=== PATIENT | female | born 1955 | race Caucasian/White ===

== ENCOUNTER 2022-01-24 10:26 | Outpatient (REF) | payer MEDICARE, MEDICAID, SELFPAY ==
--- NOTE | ~2022-01-24 | XR_ITS ---
EXAMINATION: XR CHEST CLINICAL INFORMATION: COPD COMPARISON: Previous chest x-ray most recent July 2011 TECHNIQUE: 2 views of the chest were obtained. FINDINGS: The cardiac and mediastinal contours are stable. The lungs are well inflated. The lungs are clear. There is no pleural effusion or pneumothorax. There are degenerative changes of the spine. XR/XR chest 2V IMPRESSION: Well-inflated lungs. No evidence for acute disease in the chest.
== END 2022-01-24 10:27 | disposition home or self-care (01) ==
LOC: HO.XRAY 10:26
PROVIDERS: PCP Student in an Organized Health Care Education/Training Program; Visit Provider Student in an Organized Health Care Education/Training Program
DX: J44.1 Chronic obstructive pulmonary disease with (acute) exacerbation (principal)
CPT/HCPCS: 71046

== ENCOUNTER 2023-11-04 15:02 | Outpatient (AMB) | payer MEDICARE, MEDICAID, SELFPAY ==
--- NOTE | 2023-11-04 15:17 | MHC.OFFVIS ---
Vital Signs 11/04/23 15:18 Height 5 ft 2.25 in Weight 155 lb 6.814 oz BMI 28.2 BP 136/78 Blood Pressure Location Lt brachial Position Sitting Pulse 77 Pulse Source Pulse Oximeter Pulse Oximetry (%) 94 Oxygen Delivery Method Room Air Intake Visit Reasons: COPD Allergies azithromycin [AZITHROMYCIN] Allergy (Unknown, Unverified 11/04/23 15:22) AGITATION HPI HPI COPD: Details: Julia is a pleasant 68 year old female, current 1/2 ppd smoker with 40+ pack-year history, underlying COPD. She was referred for pulmonary evaluation by PCP. She reports worsening control of COPD over the last few months using albuterol frequently for dyspnea on minimal exertion, wheezing, and dry cough and chest tightness. She was recently treated for an exacerbation by PCP with 5 day course of prednisone, which initially improved symptoms however once completed symptoms returned. She reports asthma diagnosed as an adult, never required intubations. She denies any occupational exposures. She denies any pertinent family history. She reports minimal activity secondary to bilateral knee pain. She reports feeling cortisone injections and interested in a referral to Pain Management, will enter this. [facility] Medical History (Updated 11/05/23 @ 12:43 by Noa Mendez NP) Hypercholesteremia Nicotine dependence, cigarettes, uncomplicated Vitamin D deficiency Social History (Updated 11/04/23 @ 15:22 by Ronel Marsh CMA) Patient Tobacco Use Status: Current everyday Tobacco user Tobacco use type: Cigarette Cigarettes Per Day: 10 Years Smoked: over 40 years Review of Systems Const Denies chills, Denies excessive sweating, Denies fever(s), Denies headache(s) and Denies night sweats Eyes Denies dry eyes, Denies irritation and Denies itchy eyes ENT Reports Normal hearing present, Denies headache(s), Denies nasal congestion, Denies nasal discharge, Denies post nasal drip and Denies sore throat Card Denies chest pain, Denies chest pain at rest, Denies chest pain with activity, Denies claudication, Denies leg edema and Denies paroxysmal nocturnal dyspnea Resp Denies chest congestion, Denies excessive phlegm production, Denies pain on inspiration, Denies pain with cough and Denies stridor Musc Denies myalgias Neuro Reports Normal hearing present and Denies headache(s) Endo Denies excessive sweating Jimbo/Lymph Denies lymphadenopathy Aller/Immun Denies itchy eyes and Denies seasonal rhinorrhea Physical Exam Vital Signs: Last Vital Signs Pulse 77 11/04/23 15:18 BP 136/78 11/04/23 15:18 Pulse Ox 94 11/04/23 15:18 Oxygen Delivery Method Room Air 11/04/23 15:18 BMI result Body Mass Index 28.2 Const General: cooperative, no acute distress, well developed and alert Orientation/consciousness: patient oriented x3 Limitations: no limitations HEENT Head: Yes normal to inspection, Yes normocephalic and Yes atraumatic Ears: hearing grossly normal bilaterally and external ears normal Eyes General: appearance normal, both eyes and all related structures Eyelids: Yes eyelids normal Sclerae: sclerae normal EOM: EOMs intact bilaterally Neck Neck: Yes normal visual inspection and Yes no lymphadenopathy Lymphatic: no lymphadenopathy noted Chest Chest palpation & inspection: normal inspection of the chest Resp Other: Moderate expiratory wheezing throughout, improved with DuoNeb Effort & Inspection: normal respiratory effort, able to speak in complete sentences, audible wheezes, Actively coughing, no stridor, not tachypneic, no tripod positioning and no use of accessory muscles Auscultation: wheezes and diminished lung sounds Cardio Jugular venous distension: no JVD Rate: regular rate Rhythm: regular rhythm Skin Other: warm, dry General skin exam: no rashes or lesions noted Neuro General: patient oriented x3 Cranial nerves: Yes Normal hearing present Cognition (Neuro): normal cognition Gait exam (Neuro): Normal gait present Extrem Other: Trace bilateral lower extremity edema Psych Appearance: grossly normal and well kempt Speech and movement: Normal speech and movement present and Clear speech present Affect: normal affect Attitude: cooperative Thought process: Normal thought process present Thought content: Normal thought content present Insight: Good insight present (Psych) Judgement: Good judgement present (Psych) Office Procedures Nebulizer Treatment Nebulizer Treatment [id number]-Wcyruzawv/MDI RX initial, or Nebulizer Subsequent Treatment Office Meds ipratropium 0.5 mg-albuterol 3 mg (2.5 mg base)/3 mL nebulization soln Performing Provider: Noa Mendez NP [place] [facility] [place] Administered by: Annika Proctor LPN on 11/04/23 15:58 Dose Route Admin Location Dispensed Lot Number Expiration Date NDC Speech And Hearing Director 3 mL inhalation 3 mL [id number] 09/16/25 15816-188-37 [facility] Assessment & Plan Assessment & Plan (1) COPD (chronic obstructive pulmonary disease): Code(s): J44.9 - Chronic obstructive pulmonary disease, unspecified Category: Medical (2) Nicotine dependence, cigarettes, uncomplicated: Comment: (current smoker 1/2ppd) Code(s): F17.210 - Nicotine dependence, cigarettes, uncomplicated Category: Medical (3) Dyspnea: Code(s): R06.00 - Dyspnea, unspecified Category: Medical Plan Julia's symptoms are likely related to poorly controlled COPD. Likely moderate to severe, no prior PFT. At this time patient with current exacerbation will treat with doxycycline and prednisone. Will consider PFT/munira in the future. On exam patient with audible wheezing, and moderate expiratory wheezing throughout, improved with DuoNeb. She was given a nebulizer for home use an office and a prescription for DuoNeb will be sent to pharmacy. Patient recently sent for lung cancer screening program and will have upcoming chest CT in the next few weeks. Will review once performed. Patient also reported significant orthopnea, dyspnea on minimal exertion and bilateral lower extremity edema, will send for echo to evaluate for cardiac contribution. Will have patient come in for close follow-up is aware to call the office if symptoms do not improve. If symptoms worsen patient will seek emergent care. All questions were answered and patient is in agreement of plan. Orders: Orders AMB Nebulizer Treatment 11/04/23 J44.9 - Chronic obstructive pulmonary disease, unspecified CA echo transthoracic complete Today R06.00 - Dyspnea, unspecified Medications: New xoffjzjlnwz-orhcwvwni-yfzcelud 200-62.5-25 mcg (Trelegy Ellipta) 1 inh inhalation DAILY 60 ea 3RF doxycycline hyclate 100 mg PO BID 14 caps 0RF prednisone see taper instructions; 40 mg Daily x3 days, 30 mg daily x3 days, 20 mg daily x3 days, 10 mg daily x3 days 10 mg PO DIRECTED 50 tabs 0RF ipratropium-albuterol 0.5 mg-3 mg(2.5 mg base)/3 mL 3 mL inhalation Q6H PRN 90 mL 0RF wheezing Coding Level of Care Code New Pt Level 4 (62770) Diagnoses COPD (chronic obstructive pulmonary disease) J44.9 Nicotine dependence, cigarettes, uncomplicated F17.210 Dyspnea R06.00 CPT Codes Nebulizer Treatment - Nebulizer Treatment, initial or subsequent: [id number]/MDI RX initial, or Nebulizer Subsequent Treatment ([id number])
[2023-11-04 15:18] VITALS: BP 136/78; PULSE 77; O2SAT 94; BMI 28.2
== END 2023-11-04 16:18 | disposition home or self-care (01) ==
PROVIDERS: PCP Student in an Organized Health Care Education/Training Program; Referring Provider Student in an Organized Health Care Education/Training Program; Visit Provider Nurse Practitioner Family
DX: J44.9 Chronic obstructive pulmonary disease, unspecified (principal)
CPT/HCPCS: 99204

== ENCOUNTER → 2023-11-04 15:02 | Outpatient (BNVA) | payer MEDICARE, MEDICAID, SELFPAY | PROVIDERS: PCP Student in an Organized Health Care Education/Training Program; Referring Provider Student in an Organized Health Care Education/Training Program; Visit Provider Nurse Practitioner Family | DX: J44.9 Chronic obstructive pulmonary disease, unspecified (principal); F17.210 Nicotine dependence, cigarettes, uncomplicated | CPT/HCPCS: 94640; 99202 ==

== ENCOUNTER 2023-11-15 15:13 | Outpatient (AMB) | payer MEDICARE, MEDICAID, SELFPAY ==
[2023-11-15 15:39] VITALS: BP 118/70; PULSE 78; O2SAT 94; BMI 28.7
--- NOTE | 2023-11-15 15:39 | MHC.OFFVIS ---
Vital Signs 11/15/23 15:39 Height 5 ft 2.25 in Weight 158 lb 2 oz BMI 28.7 BP 118/70 Blood Pressure Location Rt brachial Position Sitting Pulse 78 Pulse Source Pulse Oximeter Pulse Oximetry (%) 94 Oxygen Delivery Method Room Air Intake Visit Reasons: COPD Allergies azithromycin [AZITHROMYCIN] Allergy (Unknown, Unverified 11/15/23 15:42) AGITATION HPI HPI COPD: Details: Julia is a pleasant 68 year old female, current 1/2 ppd smoker with 40+ pack-year history, underlying COPD. She reports worsening control of COPD over the last few months using albuterol frequently for dyspnea on minimal exertion, wheezing, and dry cough and chest tightness. She was recently treated for an exacerbation by PCP with 5 day course of prednisone, which initially improved symptoms however once completed symptoms returned. At the last visit, she was treated for COPD exacerbation with prednisone and doxycyline. She reports symptoms having significantly improved. She states minimal cough, resolution of wheezing and decreased dyspnea with exertion. [facility] Medical History (Updated 11/05/23 @ 12:43 by Noa Mendez NP) Hypercholesteremia Nicotine dependence, cigarettes, uncomplicated Vitamin D deficiency Social History Patient Tobacco Use Status: Current everyday Tobacco user Tobacco use type: Cigarette Cigarettes Per Day: 10 Years Smoked: over 40 years Review of Systems Const Denies chills, Denies excessive sweating, Denies fever(s), Denies headache(s) and Denies night sweats Eyes Denies dry eyes, Denies irritation and Denies itchy eyes ENT Reports Normal hearing present, Denies headache(s), Denies nasal congestion, Denies nasal discharge, Denies post nasal drip and Denies sore throat Card Denies chest pain, Denies chest pain at rest, Denies chest pain with activity, Denies claudication, Denies leg edema, Denies orthopnea and Denies paroxysmal nocturnal dyspnea Resp Denies chest congestion, Denies excessive phlegm production, Denies pain on inspiration, Denies pain with cough, Denies stridor and Denies wheezing Musc Denies myalgias Neuro Reports Normal hearing present and Denies headache(s) Endo Denies excessive sweating Jimbo/Lymph Denies lymphadenopathy Aller/Immun Denies itchy eyes, Denies seasonal rhinorrhea and Denies wheezing Physical Exam Vital Signs: Last Vital Signs Pulse 78 11/15/23 15:39 BP 118/70 11/15/23 15:39 Pulse Ox 94 11/15/23 15:39 Oxygen Delivery Method Room Air 11/15/23 15:39 BMI result Body Mass Index 28.7 Const General: cooperative, healthy appearing, comfortable, no acute distress, well developed and alert Nutritional Appearance: obese Orientation/consciousness: patient oriented x3 Limitations: no limitations HEENT Head: Yes normal to inspection, Yes normocephalic and Yes atraumatic Ears: hearing grossly normal bilaterally and external ears normal Eyes General: appearance normal, both eyes and all related structures Eyelids: Yes eyelids normal Sclerae: sclerae normal EOM: EOMs intact bilaterally Neck Neck: Yes normal visual inspection and Yes no lymphadenopathy Lymphatic: no lymphadenopathy noted Chest Chest palpation & inspection: normal inspection of the chest Resp Effort & Inspection: normal respiratory effort, able to speak in complete sentences, no audible wheezes, no cough, no stridor, not tachypneic, no tripod positioning and no use of accessory muscles Auscultation: diminished lung sounds Cardio Jugular venous distension: no JVD Rate: regular rate Rhythm: regular rhythm Skin Other: warm, dry General skin exam: no rashes or lesions noted Neuro General: patient oriented x3 Cranial nerves: Yes Normal hearing present Cognition (Neuro): normal cognition Gait exam (Neuro): Normal gait present Extrem General: Yes normal to inspection, Yes capillary refill normal, Yes no clubbing, cyanosis or edema and Yes no pedal edema Psych Appearance: grossly normal and well kempt Speech and movement: Normal speech and movement present and Clear speech present Affect: normal affect Attitude: cooperative Thought process: Normal thought process present Thought content: Normal thought content present Insight: Good insight present (Psych) Judgement: Good judgement present (Psych) Assessment & Plan Assessment & Plan (1) COPD (chronic obstructive pulmonary disease): Code(s): J44.9 - Chronic obstructive pulmonary disease, unspecified Category: Medical (2) Nicotine dependence, cigarettes, uncomplicated: Comment: (current smoker 1/2ppd) Code(s): F17.210 - Nicotine dependence, cigarettes, uncomplicated Category: Medical (3) Dyspnea: Code(s): R06.00 - Dyspnea, unspecified Category: Medical Plan At the last visit, patient treated for COPD exacerbation, reporting significant improvement in symptoms and feels back to baseline. Advised to continue Trelegy and use Duoneb PRN. Awaiting patient to be scheduled for PFT and has a LDCT scheduled on 12/05, echo on 11/25. Will follow up to review results or sooner if needed. All questions were answered and patient is in agreement of plan. Coding Level of Care Code Est Pt Level 3 (43998) Diagnoses COPD (chronic obstructive pulmonary disease) J44.9 Nicotine dependence, cigarettes, uncomplicated F17.210 Dyspnea R06.00
== END 2023-11-15 16:20 | disposition home or self-care (01) ==
PROVIDERS: PCP Student in an Organized Health Care Education/Training Program; Visit Provider Nurse Practitioner Family
DX: J44.9 Chronic obstructive pulmonary disease, unspecified (principal); F17.210 Nicotine dependence, cigarettes, uncomplicated; R06.00 Dyspnea, unspecified
CPT/HCPCS: 99213

== ENCOUNTER → 2023-11-15 15:13 | Outpatient (BNVA) | payer MEDICARE, MEDICAID, SELFPAY | PROVIDERS: PCP Student in an Organized Health Care Education/Training Program; Visit Provider Nurse Practitioner Family | DX: J44.9 Chronic obstructive pulmonary disease, unspecified (principal); R06.00 Dyspnea, unspecified; F17.210 Nicotine dependence, cigarettes, uncomplicated | CPT/HCPCS: 99212 ==

== ENCOUNTER → 2023-11-26 13:44 | Outpatient (REF) | payer MEDICARE, MEDICAID, SELFPAY ==
--- NOTE | 2023-11-26 13:46 | CA_ITS ---
Transthoracic Echocardiogram Patient (Last, First, Middle): Julia Monzon L Gender: Female Date of : 1955 Age: 68 Procedure Date: 11/26/2023 Procedure Type: Transthoracic Echocardiogram Location: OP Height: 160.02 cm Weight: 70.31 kg BSA: 1.74 m2 Heart Rate: bpm BP: 120 / 75 mmHg Scroll Shear Operator: BECKY Referring MD: Noa Mendez NP Symptoms: R06.00 - Dyspnea, unspecified Study Quality: Adequate ECG Rhythm: Sinus Conclusions: - The left ventricular systolic function is normal. The calculated ejection fraction is 64% by biplane method. - There is mild calcification of the aortic valve. - There is mild mitral annular calcification. - There is mild dilatation of the ascending aorta measuring 3.90 cm. Findings Left Ventricle Normal left ventricular cavity size. There is normal left ventricular wall thickness. The left ventricular systolic function is normal. The calculated ejection fraction is 64% by biplane method. There is no evidence of regional wall motion abnormalities. Diastolic function is normal for age. Right Ventricle Normal right ventricular cavity size and systolic function. Atria Both atria are normal in size. Aortic Valve There is a normal trileaflet aortic valve. There is mild calcification of the aortic valve. There is no aortic valve stenosis. There is no aortic valve regurgitation. Mitral Valve The mitral valve appears normal. There is mild mitral annular calcification. There is no mitral valve regurgitation. There is no mitral valve stenosis. Pulmonic Valve The pulmonic valve is likely normal. Tricuspid Valve There is mild tricuspid valve regurgitation. There is no evidence of pulmonary hypertension. Great Vessels There is mild dilatation of the ascending aorta measuring 3.90 cm. Venous The inferior vena cava is normal in size and collapses greater than 50% with inspiration. Pericardium/Pleural There is no evidence of pericardial effusion. Prior Study Comparison No prior study available for comparison. Measurements 2D Linear Measurements IVSd: 0.93 0.6-0.9/0.6-1.0 cm LVIDd: 4.41 3.9-5.3/4.2-5.9 cm LVIDd Index: 2.53 2.4-3.2/2.2-3.1 cm/m2 LVIDs: 3.06 2.0-3.6 cm LVPWd: 0.88 0.7-1.1 cm LA Diam: 3.40 2.7-3.8/3.0-4.0 cm LAIDs Index: 1.95 1.5-2.3 cm/m2 LV Mass: 160.71 67-162/88-224 g LV Mass Index: 92.36 43-95/49-115 g/m2 LVOT Diam: 2.10 3.0+(-)1.3 cm 2D Systolic Function EF 4C: 63.80 >55% EF 2C: 61.70 >55% EF BiP: 63.90 >55% Mitral Valve MV Pk E: 0.78 MV PK A: 0.81 MV Decel Time: 249.00 E/A: 1.00 E'Lateral: 8.59 E'Medial: 5.66 E/E' Med: 13.80 E/E' Lat: 9.10 PHT: 73.00 MVA PHT: 3.01 Decel Panola: 3.13 Aortic Valve AoV Pk Fidel: 1.36 AoV Mn Fidel: 0.98 AoV VTI: 0.30 AoV Pk Grad: 7.00 Aov Mn Grad: 4.00 EVETTE Cont.VTI: 2.69 LVOT LVOT Pk Fidel: 1.10 LVOT Mn Fidel: 0.65 LVOT VTI: 0.23 LVOT Pk Grad: 5.00 LVOT Mn Grad: 2.00 LVOT Diam: 2.10 LVOT Area: 3.46 Diastolic Function MV Pk E: 0.78 MV Pk A: 0.81 E/A: 1.00 E'Medial: 5.66 E/E' Med: 13.80 E' Laterial: 8.59 E/E' Lat: 9.10 Right Ventricle TAPSE (mm): 28.20 TVS' Fidel: 13.90 Tricuspid Valve TR Pk Fidel: 2.71 TR Pk Grad: 29.00 RA Press: 3.00 RVSP: 32.00 Great Vessels Aorta Sinus of Valsalva: 3.95 2.0-3.[address] [place]: 2.41 1.7-3.4 cm Ao Asc: 3.90 2.1-3.4 cm Updated in Other Vendor System with Status of Final Rob Beard MD electronically signed on 11/26/2023 3:37:48 PM with status of Final
== END ==
LOC: HO.CARD 13:44
PROVIDERS: PCP Student in an Organized Health Care Education/Training Program; Visit Provider Nurse Practitioner Family
DX: R06.00 Dyspnea, unspecified (principal)
CPT/HCPCS: 93306

== ENCOUNTER → 2023-11-26 13:46 | Outpatient (BNV) | payer MEDICARE, MEDICAID, SELFPAY | PROVIDERS: PCP Student in an Organized Health Care Education/Training Program; Visit Provider Internal Medicine | DX: I36.1 Nonrheumatic tricuspid (valve) insufficiency (principal); I35.8 Other nonrheumatic aortic valve disorders; I34.81 Nonrheumatic mitral (valve) annulus calcification | CPT/HCPCS: 93306 ==

== ENCOUNTER 2023-12-13 08:40 | Outpatient (REF) | payer MEDICARE, MEDICAID, SELFPAY ==
[2023-12-13 14:29] LABS: Alanine Aminotransferase 9 U/L (0-31); Albumin Level 3.9 g/dL (3.5-5.0); Alkaline Phosphatase 68 U/L (39-117); Anion Gap 11 (12-20); Aspartate Amino Transferase 13 U/L (5-31); Bilirubin Direct 0.1 mg/dL (0.0-0.5); Bilirubin Total 0.3 mg/dL (0.0-1.0); Blood Urea Nitrogen 13 mg/dL (9-16); Calcium 9.4 mg/dL (8.4-10.2); Carbon Dioxide 29 mmol/L (22-29); Chloride 104 mmol/L (96-108); Cholesterol 244 mg/dL (<200); Estimated Glomerular Filt Rate > 60; Glucose Random 98 mg/dL (60-115); HDL Cholesterol 55 mg/dL (>40); LDL Cholesterol Calculated 166 mg/dL (<100); Sodium 140 mmol/L (135-145); Total Protein 6.5 g/dL (6.5-8.0); Triglycerides 117 mg/dL (<150)
== END 2023-12-13 08:41 | disposition home or self-care (01) ==
LOC: HO.CHCLDS 08:40
PROVIDERS: Visit Provider Student in an Organized Health Care Education/Training Program
DX: E78.00 Pure hypercholesterolemia, unspecified (principal)
CPT/HCPCS: 36415; 80048; 80061; 80076

== ENCOUNTER 2023-12-25 12:11 | Outpatient (REF) | payer MEDICARE, MEDICAID, SELFPAY ==
--- NOTE | ~2023-12-25 | MM_ITS ---
EXAMINATION: MM SCREENING DIGITAL BREAST TOMOSYNTHESIS, BILATERAL CLINICAL INFORMATION: Screening. Asymptomatic. COMPARISON: Mammography: 12/18/2017, 10/01/2016, dating back to 2014. TECHNIQUE: Digital breast tomosynthesis is performed in both the craniocaudal and mediolateral oblique views along with computer-aided detection (CAD). Synthesized 2D images are generated from the tomosynthesis. In addition, additional right MLO, right CC, and left cc views were also obtained. FINDINGS: There are scattered areas of fibroglandular density (ACR BI-RADS breast composition Category b). There is an oval masslike focal asymmetry in the 2-3 o'clock axis of the right breast, anterior depth. Recommend diagnostic views. Otherwise, there is no suspicious additional mass, area of architectural distortion, or suspicious calcifications in either breast. No skin or axillary abnormalities. Parenchymal pattern is otherwise stable. MM/MM tomosynthesis screening BI IMPRESSION: Oval masslike focal asymmetry right breast 2-3 o'clock axis, anterior depth. Recommend spot compression 3-D views in the right CC and MLO views, as well as a full-field right 3-D ML view. Ultrasound may be necessary if the finding persists. No suspicious finding in the left breast. ASSESSMENT: BI-RADS BI-RADS 0 - Incomplete: Needs additional Imaging. RECOMMENDATION: 1. Additional views of the right breast. 2. Targeted ultrasound if warranted after review of the additional views. 3. Radiology department staff will contact the patient for additional imaging. Additional Imaging required This examination should not preclude the clinical evaluation of a suspicious palpable abnormality.
== END 2023-12-25 12:12 | disposition home or self-care (01) ==
LOC: HO.MAMMO 12:11
PROVIDERS: PCP Student in an Organized Health Care Education/Training Program; Visit Provider Student in an Organized Health Care Education/Training Program
DX: Z12.31 Encounter for screening mammogram for malignant neoplasm of breast (principal)
CPT/HCPCS: 77063; 77067

== ENCOUNTER → 2023-12-25 12:30 | Outpatient (BNV) | payer MEDICARE, MEDICAID, SELFPAY | PROVIDERS: PCP Student in an Organized Health Care Education/Training Program; Visit Provider Radiology Diagnostic Radiology | DX: Z12.31 Encounter for screening mammogram for malignant neoplasm of breast (principal) | CPT/HCPCS: 77063; 77067 ==

== ENCOUNTER 2024-01-17 11:09 | Outpatient (AMB) | payer MEDICARE, MEDICAID, SELFPAY ==
--- NOTE | 2024-01-17 08:05 | A.OFFVIS_ITS ---
Intake Visit Reasons: Current Smoker Allergies azithromycin [AZITHROMYCIN] Allergy (Unknown, Unverified 11/15/23 15:42) AGITATION HPI HPI Current Smoker: Details: Initial visit for this 68yo smoker with a 25PYH. Patient has been smoking since age 18 for 50 years at 1/2ppd. . Denies marijuana use. (onset 18yo, 1/2ppd x 50yrs, 25pyh) Denies second hand smoke exposure. Denies exposure to chemicals or substances like asbestos. . Reports family history of lung cancer. sister age 64 Denies personal history of cancers. Denies chest CT in last year. . Denies recent travel outside the [place]. Denies recent respiratory illness or recent hospitalization for respiratory issues. Denies testing positive for COVID. Denies receiving COVID Vaccine. . Denies fever, chills, new/worsening cough, hemoptysis, hoarseness or dysphagia. Denies significant chest pain, significant dyspnea or unintentional weight loss. Patient Lung Cancer Screening Questionnaire reviewed with patient by provider. . Shared Decision Making Completed. Patient meets criteria. Discussed in detail with patient, the risk vs benefit of LDCT screening. Patient consents to proceed with scan. Discussed smoking cessation. [facility] Medical History (Updated 12/03/23 @ 12:16 by April Portillo PA-C) Hypercholesteremia COPD (chronic obstructive pulmonary disease) Nicotine dependence, cigarettes, uncomplicated Vitamin D deficiency Surgical History (Updated 01/17/24 @ 11:19 by April Portillo PA-C) History of hysterectomy History of appendectomy History of tonsillectomy Family History (Updated 01/17/24 @ 11:24 by April Portillo PA-C) Daughter Leiomyosarcoma Sister Lung cancer Social History (Updated 01/17/24 @ 11:15 by April Portillo PA-C) Patient Tobacco Use Status: Current everyday Tobacco user Tobacco use type: Cigarette Cigarettes Per Day: 10 Years Smoked: (onset 18yo, 1/2ppd x 50yrs, 25pyh) Assessment & Plan Assessment & Plan (1) Nicotine dependence, cigarettes, uncomplicated: Comment: (current smoker 1/2ppd) Code(s): F17.210 - Nicotine dependence, cigarettes, uncomplicated Category: Medical Plan: - SDM visit completed today in office. - Patient meets criteria for LDCT for lung cancer screening purposes and is asymptomatic. - Smoking cessation counseling offered. Patients can always call [phone]. - Will arrange for a LDCT scan of the chest for screening purposes at [facility]. - Risks, benefits, and alternatives were discussed in detail and the patient agrees to proceed. - Risks discussed include but are not limited to: radiation exposure, anxiety during testing and while awaiting results, false negatives, false positives and possibility of additional intervention such as further imaging or surgical procedures for benign disease. - Benefits are obviously detection of lung cancer at an early stage which can lead to improved outcomes. - Discussed the importance of screening program compliance with adherence to yearly LDCT scan as scheduled - or sooner interval scans for personalized scree brooke regimen. - Discussed follow up plan. Our office will send a letter discussing results and if needed set up phone call and office visit based on CT findings. - Patient educated on results categorization and the management decisions for suspicious findings potentially found on the screening LDCT scan. Any patient with a Lung RADS score of 3 or 4 will be reviewed by a multidisciplinary team at [facility] to form a plan of action in regards to scan findings. - If further work up is warranted for a suspicious lung finding this will be followed by the Lung Cancer Screening program in conjunction with the Thoracic Surgery Department at [facility]. - A copy of the office note and LDCT will be sent to the patient's PCP - as well as documentation on any associated further plans of care. - Incidental findings on LDCT are the PCP's responsibility. These findings are indicated with an S finding on the LDCT Assessment. A note discussing the findings will be sent to the PCP who is then responsible for further management. - All questions answered.? Coding Level of Care Code Lung Cancer Screening G0296 Diagnoses Nicotine dependence, cigarettes, uncomplicated F17.210
== END 2024-01-17 11:31 | disposition home or self-care (01) ==
PROVIDERS: PCP Student in an Organized Health Care Education/Training Program; Referring Provider Student in an Organized Health Care Education/Training Program; Visit Provider Physician Assistant Medical
DX: F17.210 Nicotine dependence, cigarettes, uncomplicated (principal)
CPT/HCPCS: G0296

== ENCOUNTER 2024-01-17 11:25 | Outpatient (REF) | payer MEDICARE, MEDICAID, SELFPAY ==
--- NOTE | ~2024-01-17 | CT_ITS ---
EXAMINATION: CT LOW-DOSE SCREENING CHEST WITHOUT CONTRAST CLINICAL INFORMATION: Nicotine dependence. Current smoker smoking 1 pack per day for 36 years. COMPARISON: None available. TECHNIQUE: Multidetector volumetric CT imaging of the chest is performed on a Siemens SOMATOM Definition scanner without contrast using low dose technique. Additional 2D coronal and sagittal reformatted images and axial 3D maximum intensity projection (MIP) images are generated on the CT workstation. This CT examination was performed using dose optimization techniques as appropriate, variously including the following: *Automated exposure control *Adjustment of mA and/or kV according to patient size (this includes techniques or standardized protocols for targeted exams where dose is matched to indication/reason for exam; i.e. extremities or head) *Use of iterative reconstruction technique TOTAL EXAM DLP: 36 mGy-cm. CTDIvol: 1.15 mGy. FINDINGS: PULMONARY NODULES: Some small pulmonary nodules are present the largest measuring 3 mm in size (see saved macdonald images). No suspicious lung masses are seen. LUNGS: Lungs bilaterally symmetrically expanded. Moderate emphysematous changes are present along with marked diffuse bronchial thickening. Atelectasis is present in the right middle lobe as well as lingula. No effusion or pneumothorax. Central airways patent. MEDIASTINUM: No mediastinal, hilar or axillary adenopathy or free fluid collection. CORONARY ARTERY CALCIFICATION: Mild THYROID GLAND: Unremarkable to the extent seen. CARDIOVASCULAR STRUCTURES: Aortic and heart size normal. Ascending aorta measures 3.8 cm. No pericardial effusion. CHEST WALL/AXILLA: Unremarkable. UPPER ABDOMEN: Splenic granuloma are present. Marked atherosclerotic change seen in the abdominal aorta. OSSEOUS STRUCTURES: No suspicious focal findings. CT/CT lung screening IMPRESSION: No suspicious lung masses are seen. ASSESSMENT: 1. Lung-RADS Category 2: Benign appearance or behavior of nodules. N/A 2. Lung-RADS Category S: Negative. There are no clinically significant or potentially clinically significant findings not related to the lungs requiring urgent additional evaluation. RECOMMENDATION: Continued routine annual low-dose CT lung screening in 1 year is recommended. An order for CT CHEST LOW DOSE CANCER SCREENING ([id number]) can be placed. Electronically signed by: Garry Peres MD 01/20/2024 10:36 PM EDT
== END 2024-01-17 11:26 | disposition home or self-care (01) ==
LOC: HO.CT 11:25
PROVIDERS: Visit Provider Physician Assistant Medical
DX: Z12.2 Encounter for screening for malignant neoplasm of respiratory organs (principal); F17.210 Nicotine dependence, cigarettes, uncomplicated
CPT/HCPCS: 71271; G0296

== ENCOUNTER 2024-01-27 13:49 | Outpatient (AMB) | payer MEDICARE, MEDICAID, SELFPAY ==
--- NOTE | 2024-01-26 21:31 | MHC.OFFVIS ---
Vital Signs 01/27/24 13:55 Height 5 ft 2.5 in Weight 159 lb 13.362 oz BMI 28.8 BP 140/76 H Blood Pressure Location Rt brachial Position Sitting Pulse 74 Pulse Source Pulse Oximeter Pulse Oximetry (%) 95 Oxygen Delivery Method Room Air Intake Visit Reasons: COPD Allergies azithromycin [AZITHROMYCIN] Allergy (Unknown, Unverified 01/27/24 13:58) AGITATION HPI HPI COPD: Details: Julia is a pleasant 68 year old female, current 1/4 ppd smoker with 40+ pack-year history, underlying COPD. She has been moderately controlled on Trelegy and DuoNeb. She has been using Duoneb BID with improvements in dyspnea on exertion, and intermittent wheezing and productive cough with whitish mucous. She denies any visits to urgent care or hospitalizations since last visit. Today she presents to review echo and Chest CT. [facility] Medical History (Updated 01/27/24 @ 20:08 by Noa Mendez NP) Hypercholesteremia COPD (chronic obstructive pulmonary disease) Nicotine dependence, cigarettes, uncomplicated Vitamin D deficiency Surgical History (Updated 01/17/24 @ 11:19 by April Portillo PA-C) History of hysterectomy History of appendectomy History of tonsillectomy Family History (Updated 01/17/24 @ 11:24 by April Portillo PA-C) Daughter Leiomyosarcoma Sister Lung cancer Social History Patient Tobacco Use Status: Current everyday Tobacco user Tobacco use type: Cigarette Cigarettes Per Day: 10 Years Smoked: (onset 18yo, 1/2ppd x 50yrs, 25pyh) Review of Systems Const Denies chills, Denies excessive sweating, Denies fever(s), Denies headache(s) and Denies night sweats Eyes Denies dry eyes, Denies irritation and Denies itchy eyes ENT Reports Normal hearing present, Denies headache(s), Denies nasal congestion, Denies nasal discharge, Denies post nasal drip and Denies sore throat Card Denies chest pain, Denies chest pain at rest, Denies chest pain with activity, Denies claudication, Denies leg edema, Denies orthopnea and Denies paroxysmal nocturnal dyspnea Resp Denies chest congestion, Denies excessive phlegm production, Denies pain on inspiration, Denies pain with cough, Denies stridor and Denies wheezing Musc Denies myalgias Neuro Reports Normal hearing present and Denies headache(s) Endo Denies excessive sweating Jimbo/Lymph Denies lymphadenopathy Aller/Immun Denies itchy eyes, Denies seasonal rhinorrhea and Denies wheezing Physical Exam Vital Signs: Last Vital Signs Pulse 74 01/27/24 13:55 BP 140/76 H 01/27/24 13:55 Pulse Ox 95 01/27/24 13:55 Oxygen Delivery Method Room Air 01/27/24 13:55 BMI result Body Mass Index 28.8 Const General: cooperative, healthy appearing, comfortable, no acute distress, well developed and alert Nutritional Appearance: obese Orientation/consciousness: patient oriented x3 Limitations: no limitations HEENT Head: Yes normal to inspection, Yes normocephalic and Yes atraumatic Ears: hearing grossly normal bilaterally and external ears normal Eyes General: appearance normal, both eyes and all related structures Eyelids: Yes eyelids normal Sclerae: sclerae normal EOM: EOMs intact bilaterally Neck Neck: Yes normal visual inspection and Yes no lymphadenopathy Lymphatic: no lymphadenopathy noted Chest Chest palpation & inspection: normal inspection of the chest Resp Effort & Inspection: normal respiratory effort, able to speak in complete sentences, no audible wheezes, no cough, no stridor, not tachypneic, no tripod positioning and no use of accessory muscles Auscultation: diminished lung sounds Cardio Jugular venous distension: no JVD Rate: regular rate Rhythm: regular rhythm Skin Other: warm, dry General skin exam: no rashes or lesions noted Neuro General: patient oriented x3 Cranial nerves: Yes Normal hearing present Cognition (Neuro): normal cognition Gait exam (Neuro): Normal gait present Extrem General: Yes normal to inspection, Yes capillary refill normal, Yes no clubbing, cyanosis or edema and Yes no pedal edema Psych Appearance: grossly normal and well kempt Speech and movement: Normal speech and movement present and Clear speech present Affect: normal affect Attitude: cooperative Thought process: Normal thought process present Thought content: Normal thought content present Insight: Good insight present (Psych) Judgement: Good judgement present (Psych) Results Reviewed Results Reviewed: [address] [address] [address] Scan Report Signed Patient: Julia Monzon MR#: [id number] : 1955 Acct:[id number] Age/Sex: 68 / F ADM Date: 01/17/24 Loc: HO.CT Attending Dr: April Portillo PA-C Ordering Physician: April Portillo PA-C Date of Service: 01/17/24 Procedure(s): CT lung screening Accession Number(s): [id number] cc: April Portillo PA-C~ EXAMINATION: CT LOW-DOSE SCREENING CHEST WITHOUT CONTRAST CLINICAL INFORMATION: Nicotine dependence. Current smoker smoking 1 pack per day for 36 years. COMPARISON: None available. TECHNIQUE: Multidetector volumetric CT imaging of the chest is performed on a Siemens SOMATOM Definition scanner without contrast using low dose technique. Additional 2D coronal and sagittal reformatted images and axial 3D maximum intensity projection (MIP) images are generated on the CT workstation. This CT examination was performed using dose optimization techniques as appropriate, variously including the following: *Automated exposure control *Adjustment of mA and/or kV according to patient size (this includes techniques or standardized protocols for targeted exams where dose is matched to indication/reason for exam; i.e. extremities or head) *Use of iterative reconstruction technique TOTAL EXAM DLP: 36 mGy-cm. CTDIvol: 1.15 mGy. FINDINGS: PULMONARY NODULES: Some small pulmonary nodules are present the largest measuring 3 mm in size (see saved macdonald images). No suspicious lung masses are seen. LUNGS: Lungs bilaterally symmetrically expanded. Moderate emphysematous changes are present along with marked diffuse bronchial thickening. Atelectasis is present in the right middle lobe as well as lingula. No effusion or pneumothorax. Central airways patent. MEDIASTINUM: No mediastinal, hilar or axillary adenopathy or free fluid collection. CORONARY ARTERY CALCIFICATION: Mild THYROID GLAND: Unremarkable to the extent seen. CARDIOVASCULAR STRUCTURES: Aortic and heart size normal. Ascending aorta measures 3.8 cm. No pericardial effusion. CHEST WALL/AXILLA: Unremarkable. UPPER ABDOMEN: Splenic granuloma are present. Marked atherosclerotic change seen in the abdominal aorta. OSSEOUS STRUCTURES: No suspicious focal findings. CT/CT lung screening IMPRESSION: No suspicious lung masses are seen. ASSESSMENT: 1. Lung-RADS Category 2: Benign appearance or behavior of nodules. N/A 2. Lung-RADS Category S: Negative. There are no clinically significant or potentially clinically significant findings not related to the lungs requiring urgent additional evaluation. RECOMMENDATION: Continued routine annual low-dose CT lung screening in 1 year is recommended. An order for CT CHEST LOW DOSE CANCER SCREENING ([id number]) can be placed. Electronically signed by: Garry Peres MD 01/20/2024 10:36 PM EDT RP Dictated By: Garry Peres MD Signed By: <Electronically signed by Garry Peres MD in OV> 01/20/246 DD/ 1132 TD/TT: 01/17/24 1140 Pointer Helper: [place] [id number] Cardiology Report Signed Patient: Julia Monzon MR#: [id number] : 1955 Acct:[id number] Age/Sex: 68 / F ADM Date: 11/26/23 Loc: [facility] Attending Dr: Noa Mendez NP Ordering Physician: Noa Mendez NP Date of Service: 11/26/23 Procedure(s): CA echo transthoracic complete Accession Number(s): cc: Noa Mendez NP~ Transthoracic Echocardiogram Patient (Last, First, Middle): Julia Monzon L Gender: Female Date of : 1955 Age: 68 Procedure Date: 11/26/2023 Procedure Type: Transthoracic Echocardiogram Location: OP Height: 160.02 cm Weight: 70.31 kg BSA: 1.74 m2 Heart Rate: bpm BP: 120 / 75 mmHg Hydramatic Mechanic: BECKY Referring MD: Noa Mendez NP Symptoms: R06.00 - Dyspnea, unspecified Study Quality: Adequate ECG Rhythm: Sinus Conclusions: - The left ventricular systolic function is normal. The calculated ejection fraction is 64% by biplane method. - There is mild calcification of the aortic valve. - There is mild mitral annular calcification. - There is mild dilatation of the ascending aorta measuring 3.90 cm. Findings Left Ventricle Normal left ventricular cavity size. There is normal left ventricular wall thickness. The left ventricular systolic function is normal. The calculated ejection fraction is 64% by biplane method. There is no evidence of regional wall motion abnormalities. Diastolic function is normal for age. Right Ventricle Normal right ventricular cavity size and systolic function. Atria Both atria are normal in size. Aortic Valve There is a normal trileaflet aortic valve. There is mild calcification of the aortic valve. There is no aortic valve stenosis. There is no aortic valve regurgitation. Mitral Valve The mitral valve appears normal. There is mild mitral annular calcification. There is no mitral valve regurgitation. There is no mitral valve stenosis. Pulmonic Valve The pulmonic valve is likely normal. Tricuspid Valve There is mild tricuspid valve regurgitation. There is no evidence of pulmonary hypertension. Great Vessels There is mild dilatation of the ascending aorta measuring 3.90 cm. Venous The inferior vena cava is normal in size and collapses greater than 50% with inspiration. Pericardium/Pleural There is no evidence of pericardial effusion. Prior Study Comparison No prior study available for comparison. Measurements 2D Linear Measurements IVSd: 0.93 0.6-0.9/0.6-1.0 cm LVIDd: 4.41 3.9-5.3/4.2-5.9 cm LVIDd Index: 2.53 2.4-3.2/2.2-3.1 cm/m2 LVIDs: 3.06 2.0-3.6 cm LVPWd: 0.88 0.7-1.1 cm LA Diam: 3.40 2.7-3.8/3.0-4.0 cm LAIDs Index: 1.95 1.5-2.3 cm/m2 LV Mass: 160.71 67-162/88-224 g LV Mass Index: 92.36 43-95/49-115 g/m2 LVOT Diam: 2.10 3.0+(-)1.3 cm 2D Systolic Function EF 4C: 63.80 >55% EF 2C: 61.70 >55% EF BiP: 63.90 >55% Mitral Valve MV Pk E: 0.78 MV PK A: 0.81 MV Decel Time: 249.00 E/A: 1.00 E'Lateral: 8.59 E'Medial: 5.66 E/E' Med: 13.80 E/E' Lat: 9.10 PHT: 73.00 MVA PHT: 3.01 Decel Rolette: 3.13 Aortic Valve AoV Pk Fidel: 1.36 AoV Mn Fidel: 0.98 AoV VTI: 0.30 AoV Pk Grad: 7.00 Aov Mn Grad: 4.00 EVETTE Cont.VTI: 2.69 LVOT LVOT Pk Fidel: 1.10 LVOT Mn Fidel: 0.65 LVOT VTI: 0.23 LVOT Pk Grad: 5.00 LVOT Mn Grad: 2.00 LVOT Diam: 2.10 LVOT Area: 3.46 Diastolic Function MV Pk E: 0.78 MV Pk A: 0.81 E/A: 1.00 E'Medial: 5.66 E/E' Med: 13.80 E' Laterial: 8.59 E/E' Lat: 9.10 Right Ventricle TAPSE (mm): 28.20 TVS' Fidel: 13.90 Tricuspid Valve TR Pk Fidel: 2.71 TR Pk Grad: 29.00 RA Press: 3.00 RVSP: 32.00 Great Vessels Aorta Sinus of Valsalva: 3.95 2.0-3.[address] Ridge: 2.41 1.7-3.4 cm Ao Asc: 3.90 2.1-3.4 cm Updated in Other Vendor System with Status of Final Rob Beard MD electronically signed on 11/26/2023 3:37:48 PM with status of Final Dictated By: Rob Beard MD Signed By: <Electronically signed by Rob Beard MD in OV> 11/26/23 1537 DD/ 1410 TD/TT: Pointer Helper: Assessment & Plan Assessment & Plan (1) COPD (chronic obstructive pulmonary disease): Code(s): J44.9 - Chronic obstructive pulmonary disease, unspecified Category: Medical (2) Nicotine dependence, cigarettes, uncomplicated: Comment: (current smoker 1/2ppd) Code(s): F17.210 - Nicotine dependence, cigarettes, uncomplicated Category: Medical (3) Dyspnea: Code(s): R06.00 - Dyspnea, unspecified Category: Medical (4) Atelectasis: Code(s): J98.11 - Atelectasis Category: Medical Plan Reviewed chest CT which was read as a RADS 2, largest pulmonary nodule 3mm with moderate emphysematous changes. She will have repeat CT in one year. Reviewed echo which revealed normal diastolic function, LVEF 64%, RVSP 32 not suggestive of pulmonary HTN. Appears symptoms are related to underlying COPD. Will send for PFT to assess severity, as patient has been moderately controlled on current regimen. Advised to continue Trelegy and use Duoneb PRN. Will add acapella valve to regimen and encouraged deep breathing/intentionally coughing as CT noted atelectasis of RML and lingula. Will send for repeat imaging to assess for resolution. Smoking cessation reviewed, would like to attempt quitting on her own. Will perform 6MWT at next visit. Will follow up to review results or sooner if needed. All questions were answered and patient is in agreement of plan. Orders: Orders XR chest 2V 6 Weeks J98.11 - Atelectasis PFT pulmonary function test Today J44.9 - Chronic obstructive pulmonary disease, unspecified Coding Level of Care Code Est Pt Level 4 (10713) Diagnoses COPD (chronic obstructive pulmonary disease) J44.9 Nicotine dependence, cigarettes, uncomplicated F17.210 Dyspnea R06.00 Atelectasis J98.11
[2024-01-27 13:55] VITALS: BP 140/76; PULSE 74; O2SAT 95; BMI 28.8
== END 2024-01-27 14:47 | disposition home or self-care (01) ==
PROVIDERS: PCP Student in an Organized Health Care Education/Training Program; Visit Provider Nurse Practitioner Family
DX: J44.9 Chronic obstructive pulmonary disease, unspecified (principal); F17.210 Nicotine dependence, cigarettes, uncomplicated; R06.00 Dyspnea, unspecified; J98.11 Atelectasis
CPT/HCPCS: 99214

== ENCOUNTER → 2024-01-27 13:49 | Outpatient (BNVA) | payer MEDICARE, MEDICAID, SELFPAY | PROVIDERS: PCP Student in an Organized Health Care Education/Training Program; Visit Provider Nurse Practitioner Family | DX: J44.9 Chronic obstructive pulmonary disease, unspecified (principal); J98.11 Atelectasis; R06.00 Dyspnea, unspecified; F17.210 Nicotine dependence, cigarettes, uncomplicated | CPT/HCPCS: 99212 ==

== ENCOUNTER 2024-02-06 12:55 | Outpatient (REF) | payer MEDICARE, MEDICAID, SELFPAY ==
--- NOTE | ~2024-02-06 | US_ITS ---
EXAMINATION: MM DIAGNOSTIC DIGITAL BREAST TOMOSYNTHESIS, RIGHT US BREAST LIMITED, RIGHT MAMMOGRAPHY: CLINICAL INFORMATION: Diagnostic views for oval masslike focal asymmetry in the 3-4 o'clock axis of the right breast, anterior depth, seen on screening exam. COMPARISON: Mammography: 12/25/2023, 12/18/2017, 09/21/2016, dating back to 2014. TECHNIQUE: Digital breast tomosynthesis is performed in the following views: Full field 3-D right mediolateral view, as well as 3-D spot compression right CC and MLO views of the anterior breast. FINDINGS: There are scattered areas of fibroglandular density (ACR BI-RADS breast composition Category b). Diagnostic views demonstrate the presence of a small circumscribed oval mass at 4-5 o'clock, anterior depth, measuring 6 mm. In addition, there is an oval circumscribed retroareolar 12:00 mass measuring approximately 1.1 cm. At the same location as a one view asymmetry without definite CC correlate in the anterior direct retroareolar region, most likely a summation artifact of tissue given the appearance on tomography. These well be evaluated with ultrasound. ULTRASOUND: CLINICAL INFORMATION: As above. COMPARISON: None contributory. TECHNIQUE: Targeted sonographic evaluation right breast was performed using a high frequency linear transducer. Attention was given to the 11:00 to the 5:00 axis right breast, anterior depth. Selected archived documentation. FINDINGS: RIGHT BREAST: -At the 12:00 axis, retroareolar, there is a oval circumscribed 5 x 5 x 7 mm probable dilated duct with internal specular debris, good through transmission, and no internal color Doppler flow. This has no suspicious features and is probably benign related to duct ectasia. -At the 1:00 axis, retroareolar, there is a similar but smaller finding measuring 4 x 4 by 6 mm, with similar imaging features and also likely a benign focus of duct ectasia with internal debris. -At 3:00 axis, anterior periareolar location, there is a small 3 x 2 mm focus of duct ectasia versus a simple cyst which is benign. The above findings are all probably benign, correlate with the mammographic findings, and follow-up targeted right breast ultrasound is recommended in 6 months to ensure stability. US/US breast RT limited mamm only IMPRESSION: -There are no findings suspicious for malignancy in the right breast. -There are probably benign findings at 12:00 and 1:00 retroareolar as described above, most likely related to dilated duct with internal debris. FOLLOW-UP TARGETED RIGHT BREAST ULTRASOUND ONLY is recommended in 6 months to ensure stability. OVERALL ASSESSMENT: Mammography: BI-RADS 3 - Probably benign finding(s) - 6 month follow-up suggested Ultrasound: BI-RADS 3 - Probably benign finding(s) - 6 month follow-up suggested RECOMMENDATION: 6 Month F/U Electronically signed by: Nicola Durán MD 02/06/2024 01:56 PM EDT
== END 2024-02-06 12:56 | disposition home or self-care (01) ==
LOC: HO.MAMMO 12:55
PROVIDERS: PCP Student in an Organized Health Care Education/Training Program; Visit Provider Student in an Organized Health Care Education/Training Program
DX: N64.89 Other specified disorders of breast (principal)
CPT/HCPCS: 76642; 77061; 77065

== ENCOUNTER → 2024-02-06 13:00 | Outpatient (BNV) | payer MEDICARE, MEDICAID, SELFPAY | PROVIDERS: PCP Student in an Organized Health Care Education/Training Program; Visit Provider Radiology Diagnostic Radiology | DX: N64.89 Other specified disorders of breast (principal) | CPT/HCPCS: 76642; 77065; G0279 ==

== ENCOUNTER 2024-04-21 15:25 | Outpatient (REF) | payer MEDICARE, MEDICAID, SELFPAY ==
[2024-04-21 10:07] VITALS: PULSE 79; O2SAT 97
--- NOTE | 2024-04-21 15:32 | PFT_ITS ---
Flows: FEV1: 44 % of predicted at 0.92 L FVC: 79 % of predicted at 2.12 L FEV1/FVC: 43 % Bronchodilator response: Absent Volumes: Patient unable to perform lung volumes maneuvers. Diffusion capacity: Moderately decreased, adjusts to being mildly decreased after correction for alveolar ventilation. Impression: Severe obstructive ventilatory defect with no bronchodilator response. Patient unable to perform lung volumes maneuvers. Decreased diffusion capacity suggests emphysema. MTDD
== END 2024-04-21 15:26 | disposition home or self-care (01) ==
LOC: HO.RESP 15:25
PROVIDERS: PCP Student in an Organized Health Care Education/Training Program; Visit Provider Nurse Practitioner Family
DX: J44.9 Chronic obstructive pulmonary disease, unspecified (principal)
CPT/HCPCS: 94010; 94640; 94727; 94729

== ENCOUNTER → 2024-04-21 15:32 | Outpatient (BNV) | payer MEDICARE, MEDICAID, SELFPAY | PROVIDERS: PCP Student in an Organized Health Care Education/Training Program; Visit Provider Internal Medicine Pulmonary Disease | DX: J44.9 Chronic obstructive pulmonary disease, unspecified (principal) | CPT/HCPCS: 94060; 94729 ==

== ENCOUNTER 2024-04-27 14:34 | Outpatient (AMB) | payer MEDICARE, MEDICAID, SELFPAY ==
[2024-04-27 14:40] VITALS: BP 160/84; PULSE 75; O2SAT 98; BMI 27.0
--- NOTE | 2024-04-27 14:40 | MHC.OFFVIS ---
Vital Signs 04/27/24 14:40 Height 5 ft 2.5 in Weight 149 lb 14.629 oz BMI 27.0 BP 160/84 H Blood Pressure Location Rt brachial Position Sitting Pulse 75 Pulse Source Pulse Oximeter Pulse Oximetry (%) 98 Oxygen Delivery Method Room Air Intake Visit Reasons: COPD/PFT Follow Up Allergies azithromycin [AZITHROMYCIN] Allergy (Unknown, Unverified 04/27/24 14:43) AGITATION HPI HPI COPD/PFT Follow Up: Details: Julia is a pleasant 68 year old female, current 1/2 ppd smoker with 40+ pack-year history, underlying COPD. At baseline, she has been moderately controlled on Trelegy and DuoNeb BID. Over the last few weeks she has had increased dyspnea, wheezing and productive cough with clear sputum. Denies fevers, chills, or chest congestion. She also notes that she has increased from 1/4 ppd to 1/2 ppd as she recently lost her daugher due to cancer mid March. She has been struggling emotionally with this and will be reaching out to PCP for resources. She denies any visits to urgent care or hospitalizations since last visit. [facility] Medical History (Updated 01/27/24 @ 20:08 by Noa Mendez NP) Hypercholesteremia COPD (chronic obstructive pulmonary disease) Nicotine dependence, cigarettes, uncomplicated Vitamin D deficiency Surgical History (Updated 01/17/24 @ 11:19 by April Portillo PA-C) History of hysterectomy History of appendectomy History of tonsillectomy Family History (Updated 01/17/24 @ 11:24 by April Portillo PA-C) Daughter Leiomyosarcoma Sister Lung cancer Social History Patient Tobacco Use Status: Current everyday Tobacco user Tobacco use type: Cigarette Cigarettes Per Day: 10 Years Smoked: (onset 18yo, 1/2ppd x 50yrs, 25pyh) Review of Systems Const Denies chills, Denies excessive sweating, Denies fever(s), Denies headache(s) and Denies night sweats Eyes Denies dry eyes, Denies irritation and Denies itchy eyes ENT Reports Normal hearing present, Denies headache(s), Denies nasal congestion, Denies nasal discharge, Denies post nasal drip and Denies sore throat Card Denies chest pain, Denies chest pain at rest, Denies chest pain with activity, Denies claudication, Denies leg edema, Reports dyspnea on exertion, Denies orthopnea and Denies paroxysmal nocturnal dyspnea Resp Denies chest congestion, Reports cough, Denies hemoptysis, Denies excessive phlegm production, Denies pain on inspiration, Denies pain with cough, Reports dyspnea on exertion, Denies stridor and Reports wheezing Musc Denies myalgias Neuro Reports Normal hearing present and Denies headache(s) Endo Denies excessive sweating Jimbo/Lymph Denies lymphadenopathy Aller/Immun Denies itchy eyes, Denies seasonal rhinorrhea and Reports wheezing Physical Exam Vital Signs: Last Vital Signs Pulse 75 04/27/24 14:40 BP 160/84 H 04/27/24 14:40 Pulse Ox 98 04/27/24 14:40 Oxygen Delivery Method Room Air 04/27/24 14:40 BMI result Body Mass Index 27.0 Const General: cooperative, healthy appearing, comfortable, no acute distress, well developed and alert Nutritional Appearance: obese Orientation/consciousness: patient oriented x3 Limitations: no limitations HEENT Head: Yes normal to inspection, Yes normocephalic and Yes atraumatic Ears: hearing grossly normal bilaterally and external ears normal Eyes General: appearance normal, both eyes and all related structures Eyelids: Yes eyelids normal Sclerae: sclerae normal EOM: EOMs intact bilaterally Neck Neck: Yes normal visual inspection and Yes no lymphadenopathy Lymphatic: no lymphadenopathy noted Chest Chest palpation & inspection: normal inspection of the chest Resp Effort & Inspection: normal respiratory effort, able to speak in complete sentences, audible wheezes, no cough, no stridor, not tachypneic, no tripod positioning and no use of accessory muscles Auscultation: wheezes and diminished lung sounds Cardio Jugular venous distension: no JVD Rate: regular rate Rhythm: regular rhythm Skin Other: warm, dry General skin exam: no rashes or lesions noted Neuro General: patient oriented x3 Cranial nerves: Yes Normal hearing present Cognition (Neuro): normal cognition Gait exam (Neuro): Normal gait present Extrem General: Yes normal to inspection, Yes capillary refill normal, Yes no clubbing, cyanosis or edema and Yes no pedal edema Psych Appearance: grossly normal and well kempt Speech and movement: Normal speech and movement present and Clear speech present Affect: normal affect Attitude: cooperative Thought process: Normal thought process present Thought content: Normal thought content present Insight: Good insight present (Psych) Judgement: Good judgement present (Psych) Office Meds methylprednisolone sod suc(PF) 125 mg/2 mL solution for injection Performing Provider: Noa Mendez NP Performing Location: [facility] Administered by: Annika Proctor LPN on 04/27/24 15:17 Dose Route Admin Location Dispensed Lot Number Expiration Date [facility] Veterinary Virologist 125 mg IM rt buttock 2 ea [id number] 05/19/26 6064-7567-16 [employer] Comments: Administered 125mg/2ml IM. Assessment & Plan Assessment & Plan (1) COPD (chronic obstructive pulmonary disease): Code(s): J44.9 - Chronic obstructive pulmonary disease, unspecified Category: Medical (2) Nicotine dependence, cigarettes, uncomplicated: Comment: (current smoker 1/2ppd) Code(s): F17.210 - Nicotine dependence, cigarettes, uncomplicated Category: Medical (3) Dyspnea: Code(s): R06.00 - Dyspnea, unspecified Category: Medical (4) Atelectasis: Code(s): J98.11 - Atelectasis Category: Medical Plan Patient with exacerbation will treat with prednisone and given IM solumedrol in office today. She is aware if symptoms do not improve to call office and if worsen to seek emergent care. Reviewed PFT which revealed severe obstructive ventilatory defect with no bronchodilator response. Patient unable to perform lung volumes maneuvers. Decreased diffusion capacity suggests emphysema. Smoking cessation reviewed, would like to attempt quitting on her own however finding it difficult with recent passing of daughter. She will reach out to PCP to discuss potential resources. Patient with CXR order to assess for resolution of atelectasis from CT chest however not performed, will have performed prior to next visit. All questions were answered and patient is in agreement of plan. Will follow up in 4-6 weeks or sooner if needed. Orders: Orders AMB Methylprednisolone Sod Succ Injection Today J44.9 - Chronic obstructive pulmonary disease, unspecified, J98.11 - Atelectasis Medications: New prednisone see taper instructions; 40 mg Daily x3 days, 30 mg daily x3 days, 20 mg daily x3 days, 10 mg daily x3 days 10 mg PO DIRECTED 30 tabs 0RF Refilled ipratropium-albuterol 0.5 mg-3 mg(2.5 mg base)/3 mL 3 mL inhalation Q6H PRN 90 mL 6RF wheezing J44.9 - Chronic obstructive pulmonary disease, unspecified, R06.00 - Dyspnea, unspecified Coding Level of Care Code Est Pt Level 4 (03335) Diagnoses COPD (chronic obstructive pulmonary disease) J44.9 Nicotine dependence, cigarettes, uncomplicated F17.210 Dyspnea R06.00 Atelectasis J98.11
== END 2024-04-27 15:17 | disposition home or self-care (01) ==
PROVIDERS: PCP Student in an Organized Health Care Education/Training Program; Visit Provider Nurse Practitioner Family
DX: J44.9 Chronic obstructive pulmonary disease, unspecified (principal); F17.210 Nicotine dependence, cigarettes, uncomplicated; R06.00 Dyspnea, unspecified; J98.11 Atelectasis
CPT/HCPCS: 99214

== ENCOUNTER → 2024-04-27 14:34 | Outpatient (BNVA) | payer MEDICARE, MEDICAID, SELFPAY | PROVIDERS: PCP Student in an Organized Health Care Education/Training Program; Visit Provider Nurse Practitioner Family | DX: J44.9 Chronic obstructive pulmonary disease, unspecified (principal); R06.00 Dyspnea, unspecified; J98.11 Atelectasis; F17.210 Nicotine dependence, cigarettes, uncomplicated | CPT/HCPCS: 96372; 99212; J2919 ==

== ENCOUNTER 2024-04-29 14:06 | Outpatient (REF) | payer MEDICARE, MEDICAID, SELFPAY ==
--- NOTE | ~2024-04-29 | XR_ITS ---
EXAMINATION: XR CHEST CLINICAL INFORMATION: J98.11 - Atelectasis COMPARISON: Lung cancer screening CT on 01/17/2024 TECHNIQUE: 2 views of the chest were obtained. FINDINGS: The cardiac silhouette is normal. There is mild bronchial wall thickening. There are no areas of consolidation. There are no pleural effusions or pneumothoraces. The bones and soft tissues are unremarkable for the patient's age. XR/XR chest 2V IMPRESSION: Mild bronchial wall thickening. Electronically signed by: Paz Jarvis MD 04/29/2024 08:18 PM KRISH
== END 2024-04-29 14:07 | disposition home or self-care (01) ==
LOC: HO.XRAY 14:06
PROVIDERS: PCP Student in an Organized Health Care Education/Training Program; Visit Provider Nurse Practitioner Family
DX: J98.11 Atelectasis (principal)
CPT/HCPCS: 71046

== ENCOUNTER 2024-08-31 10:41 | Outpatient (AMB) | payer MEDICARE, MEDICAID, SELFPAY ==
--- NOTE | 2024-08-31 10:25 | MHC.OFFVIS ---
Vital Signs 08/31/24 10:48 Height 5 ft 2.5 in Weight 142 lb 3.17 oz BMI 25.6 BP 140/70 H Blood Pressure Location Lt brachial Position Sitting Pulse 78 Pulse Source Pulse Oximeter Pulse Oximetry (%) 95 Oxygen Delivery Method Room Air Intake Visit Reasons: COPD Active Directory Engineer Required: No Hvac Operations Technician: Hvac Operations Technician offered & declined Accompanied by: cousin Allergies azithromycin [AZITHROMYCIN] Allergy (Unknown, Unverified 08/31/24 10:55) AGITATION Medication List - Last Reconciled 08/31/24 by Annika Proctor LPN albuterol sulfate 90 mcg/actuation (Ventolin HFA) 2 puffs inhalation Q6H PRN odoffpjttqe-vpdeneipt-mpemmijr 200-62.5-25 mcg (Trelegy Ellipta) 1 ea inhalation DAILY ipratropium-albuterol 0.5 mg-3 mg(2.5 mg base)/3 mL 3 mL inhalation Q6H PRN HPI HPI COPD: Details: Julia is a pleasant 69 year old female, current smoker with 40+ pack-year history, underlying severe COPD and severe emphysema. At baseline, she has been moderately suboptimally controlled on Trelegy and DuoNeb BID. However patient does note inconsistent use of Trelegy, RX last written for 3 months supply in February and reports having 1 dose left, stretching out the 3 month supply almost 6 months. She does note state it is due to financial issues. She reports using DuoNeb 1-2 times per day. She continues to report labored breathing, increased dyspnea, productive cough with clear sputum, wheezing and chest tightness. She also continues to smoke, is down to 1/4 ppd. She states various life stressors at this time and not ready to quit. She denies any visits to urgent care or hospitalizations related to respiratory distress since the last visit. LDCT 12/2023 RADS2 and scheduled for repeat LDCT 12/2024. [facility] Medical History (Updated 08/31/24 @ 12:13 by Noa Mendez NP) Hypercholesteremia COPD (chronic obstructive pulmonary disease) Nicotine dependence, cigarettes, uncomplicated Vitamin D deficiency Surgical History (Updated 01/17/24 @ 11:19 by April Portillo PA-C) History of hysterectomy History of appendectomy History of tonsillectomy Family History (Updated 01/17/24 @ 11:24 by April Portillo PA-C) Daughter Leiomyosarcoma Sister Lung cancer Social History (Updated 08/31/24 @ 10:56 by Annika Proctor LPN) Patient Tobacco Use Status: Current everyday Tobacco user Tobacco use type: Cigarette Cigarettes Per Day: 6 Years Smoked: (onset 18yo, 1/2ppd x 50yrs, 25pyh) Review of Systems Const Denies chills, Denies excessive sweating, Denies fever(s), Denies headache(s) and Denies night sweats Eyes Denies dry eyes, Denies irritation and Denies itchy eyes ENT Reports Normal hearing present, Denies headache(s), Denies nasal congestion, Denies nasal discharge, Denies post nasal drip and Denies sore throat Card Denies chest pain, Denies chest pain at rest, Denies chest pain with activity, Denies claudication, Denies leg edema, Reports dyspnea on exertion, Denies orthopnea and Denies paroxysmal nocturnal dyspnea Resp Denies chest congestion, Reports cough, Denies hemoptysis, Denies excessive phlegm production, Denies pain on inspiration, Denies pain with cough, Reports dyspnea on exertion, Denies stridor and Reports wheezing Musc Denies myalgias Neuro Reports Normal hearing present and Denies headache(s) Endo Denies excessive sweating Jimbo/Lymph Denies lymphadenopathy Aller/Immun Denies itchy eyes, Denies seasonal rhinorrhea and Reports wheezing Physical Exam Vital Signs: Last Vital Signs Pulse 78 08/31/24 10:48 BP 140/70 H 08/31/24 10:48 Pulse Ox 95 08/31/24 10:48 Oxygen Delivery Method Room Air 08/31/24 10:48 BMI result Body Mass Index 25.6 Const General: cooperative, healthy appearing, comfortable, no acute distress, well developed and alert Orientation/consciousness: patient oriented x3 Limitations: no limitations HEENT Head: Yes normal to inspection, Yes normocephalic and Yes atraumatic Ears: hearing grossly normal bilaterally and external ears normal Eyes General: appearance normal, both eyes and all related structures Eyelids: Yes eyelids normal Sclerae: sclerae normal EOM: EOMs intact bilaterally Neck Neck: Yes normal visual inspection and Yes no lymphadenopathy Lymphatic: no lymphadenopathy noted Chest Chest palpation & inspection: normal inspection of the chest Resp Effort & Inspection: normal respiratory effort, able to speak in complete sentences, audible wheezes, no cough, labored, no stridor, no tripod positioning and no use of accessory muscles Auscultation: no crackles, no rhonchi, no wheezes and diminished lung sounds Cardio Jugular venous distension: no JVD Rate: regular rate Rhythm: regular rhythm Skin Other: warm, dry General skin exam: no rashes or lesions noted Neuro General: patient oriented x3 Cranial nerves: Yes Normal hearing present Cognition (Neuro): normal cognition Gait exam (Neuro): Normal gait present Extrem General: Yes normal to inspection, Yes capillary refill normal, Yes no clubbing, cyanosis or edema and Yes no pedal edema Psych Appearance: grossly normal and well kempt Speech and movement: Normal speech and movement present and Clear speech present Affect: normal affect Attitude: cooperative Thought process: Normal thought process present Thought content: Normal thought content present Insight: Good insight present (Psych) Judgement: Good judgement present (Psych) Office Procedures 6 Minute Walk Time:: 11:26 SPO2 % at rest: 95 Pulse at rest: 87 SPO2 % during excercise: 94 Pulse during excercise: 118 SPO2 % after excercise: 95 Pulse after excercise: 107 Distance in yards walked: 100 Gisell Score: 8 Performance Observations:: Patient walked unassisted on level ground very slowly. Maintained O2 saturation of 94-95% and pulse 100-118. Patient tires very easily and becomes very short of breath. Supplemental oxygen was not required. 13422 - 6 Minute Walk Assessment & Plan Assessment & Plan (1) COPD (chronic obstructive pulmonary disease): Code(s): J44.9 - Chronic obstructive pulmonary disease, unspecified Category: Medical (2) Nicotine dependence, cigarettes, uncomplicated: Comment: (current smoker 1/2ppd) Code(s): F17.210 - Nicotine dependence, cigarettes, uncomplicated Category: Medical (3) Dyspnea: Code(s): R06.00 - Dyspnea, unspecified Category: Medical Plan Julia continues to report significant dyspnea as well as cough, wheezing and chest tightness. She did admit to not using Trelegy consistently, encouraged to use Trelegy daily and DuoNeb BID for the next four weeks. If no significant improvement will consider Ohtuvayre vs Theophylline. 6MWT performed today and patient does not require supplemental oxygen at this time, although GISELL score elevated. Will send for overnight oximetry to assess for nocturnal hypoxemia. Will consider cardiology referral to assess for underlying cardiac contribution, may benefit from stress test. Smoking cessation reviewed, patient not ready to quit at this time. All questions were answered and patient is in agreement of plan. Will follow up in 8-10 weeks or sooner if needed. Orders: Orders AMB 6 minute walk Today J44.9 - Chronic obstructive pulmonary disease, unspecified, R06.00 - Dyspnea, unspecified Overnight Pulse Oximetry Today G47.34 - Idiopathic sleep related nonobstructive alveolar hypoventilation Medications: Refilled wevfvbyhwre-tqsfpoqur-iuvajmit 200-62.5-25 mcg (Trelegy Ellipta) 1 ea inhalation DAILY 60 ea 3RF Coding Level of Care Code Est Pt Level 4 (52718) Diagnoses COPD (chronic obstructive pulmonary disease) J44.9 Nicotine dependence, cigarettes, uncomplicated F17.210 Dyspnea R06.00 CPT Codes Coding ([id number])
[2024-08-31 10:48] VITALS: BP 140/70; PULSE 78; O2SAT 95; BMI 25.6
[2024-08-31 11:49] VITALS: PULSE 87; O2SAT 95
--- OUTSIDE RECORDS SUMMARY | 2024-08-31 12:33 | XMS_ITS | Encounter Summary ---
Author Organization [employer] Address [address] [place] [address] Care Team Providers Care Energy Efficient Site Manager Name Role Phone Laura Mackenzie MD Primary Care Provider [phone] Reason for Visit * Reason Comments Med Refill Encounter Details Date Type Department Care Team ([facility] st Contact Info) Description 02/18/2023 Refill C [facility] [address] [place], [place] [phone] Laura Mackenzie MD [address] [place] [address] Uncomplicated asthma, unspecified asthma severity, unspecified whether persistent Social History Tobacco Use Types Packs/Day Years Used Date Smoking Tobacco: Never Assessed Comments Unknown Sex and Gender Information Value Date Recorded Sex Assigned at Female 03/19/2022 10:16 AM EDT Legal Sex Female 10:16 AM EDT Gender Identity Female 03/19/2022 10:16 AM EDT Sexual Orientation Straight 03/19/2022 10 :16 AM EDT documented as of this encounter Plan of Treatment Not on file documented as of this encounter Visit Diagnoses Diagnosis Uncomplicated asthma, unspecified asthma severity, unspecified whether persistent documented in this encounter Care Teams Energy Efficient Site Manager Relationship Specialty Start Date End Date Laura Mackenzie MD [address] [place] [id number] PCP - General Family Medicine 12/30/14 documented as of this encounter
--- OUTSIDE RECORDS SUMMARY | 2024-08-31 12:33 | XMS_ITS | Encounter Summary ---
Author Organization [employer] Address [address] [place] [address] Care Team Providers Care Barrel Inspector Tight Name Role Phone Laura Mackenzie MD Primary Care Provider [phone] Reason for Visit * Reason Onset Date Comments Pre-visit Planning 10/04/2023 Encounter Details Date Type Department Care Team ([facility] st Contact Info) Description 10/04/2023 Telephone [facility] [address] [place] [address] Laura Mackenzie MD [address] [place] [address] Pre-visit Planning Social History Tobacco Use Types Packs/Day Years Used Date Smoking Tobacco: Never Assessed Housing Stability Answer Date Recorded What is your housing situation today? I have mauricio parker 10/04/[address] you li ve. Do you have problems with any of the following? None of the above 10/04/2023 Food Insecurity Answer Date Recorded Within the past 12 months, y ou worried that your food would run out before you got money to buy more: Never True 10/04/2023 Within the past 12 months,th e food you bought just didn't last and you didn't have enough money to get more: Never True Transportation Answer Date Recorded In the past 12 months, has l ack of transportation kept you from medical appts, meetings, work or from getting things needed for daily living? No 10/04/2023 Utilities Answer Date Recorded In the past 12 months, has t he electric, gas, oil or water company threatened to shut off services in your home? No 10/04/2023 Comments Unknown Sex and Gender Information Value Date Recorded Sex Assigned at Female 03/19/2022 10:16 AM EDT Legal Sex Female 10:16 AM EDT Gender Identity Female 03/19/2022 10:16 AM EDT Sexual Orientation Straight 03/19/2022 10 :16 AM EDT documented as of this encounter Miscellaneous Notes * Telephone Encounter - Hans Evans - 10/04/2023 12:27 PM EDT Tc from from patient calling to complete the pre visit planning for upcoming appt documented in this encounter Plan of Treatment Not on file documented as of this encounter Visit Diagnoses Not on filedocumented in this encounter Care Teams Barrel Inspector Tight Relationship Specialty Start Date End Date Laura Mackenzie MD [address] [place] [id number] PCP - General Family Medicine 12/30/14 documented as of this encounter
--- OUTSIDE RECORDS SUMMARY | 2024-08-31 12:33 | XMS_ITS | Clinical Summary ---
Author Organization [employer] Address [address] [place] [address] [address] [place] [address] Care Team Providers Care Production Team Advisor Name Role Phone Laura Mackenzie MD Primary Care Provider [phone] Allergies No known active allergies Medications simvastatin (Zocor) 20 MG tablet Take 1 tablet (20 mg) by mouth at bedtime. 30 tablet 11 4 10/15/19 25 Active Fluticasone Furoate-Vilante rol (Breo Ellipta) 200-25 MCG/ACT aerosol powderIndicatio ns:Chronic obstructive pulmonary disease, unspecified COPD type (CMS/HCC) INHALE 1 PUFF EVERY MORNING. RINSE MOUTH AFTER USE 1 each 3 4 Active Trelegy Ellipta 200-62.5-25 MCG/ACT aerosol powder INHALE 1 PUFF DAILY AT THE SAME TIME EACH DAY. RINSE MOUTH AFTER USE 4 Active ipratropium-alb uterol (Duo-Neb) 0.5-2.5 mg/3 mL nebulizer solution USE ONE AMPULE USING A NEBULIZER EVERY 6 HOURS NEEDED FOR WHEEZING 4 Active albuterol (2.5 MG/3ML) 0.083% nebulizer solutionIndicat ions:Unspecifie d asthma with status asthmaticus Take 3 mL (2.5 mg) by nebulization every 4 (four) hours if needed for wheezing or shortness of breath. 90 mL 3 4 Active cholecalciferol (D3-5) 5,000 Units tablet Take 1 tablet (5,000 Units) by mouth Once per day. 90 tablet 3 4 12/13/19 25 Active albuterol (Ventolin HFA) 108 (90 Base) MCG/ACT inhalerIndicati ons:Uncomplicat ed asthma, unspecified asthma severity, unspecified whether persistent INHALE TWO PUFFS BY MOUTH EVERY 4 HOURS NEEDED FOR WHEEZING 18 g 3 5 Active Active Problems Problem Noted Date Diagnosed Date Chronic obstructive lung disease 12/30/2014 Hypercholesterolemia 12/30/2014 Encounters Date Type Department Care Team Description 07/31/2024 Population Health Risk Score [facility] () Department [address] [address] Provider, Population Health Generic 07/28/2024 Telephone [facility] [address] [place] [address] Laura Mackenzie MD TC- RECALL 06/23/2024 Refill [facility] [address] [place] [address] Laura Mackenzie MD Uncomplicated asthma, unspecified asthma severity, unspecified whether persistent from Last 3 Months Immunizations Name Administration Dates Next Due Influenza High-dose Quadriva lent Preservative Free 02/22/2022,04/12/2021 Influenza Injectable Quadriv alant Preservative Free IIV4 MDCK 04/30/2017 Influenza injectable quadriv alent preservative free 05/23/2018 Influenza, IIV3, injectable 02/23/2013, 0,03/23/2008 Influenza, seasonal, injecta ble, preservative free 05/01/2016,02/15/2015 Pneumococcal Conjugate PCV 20 03/01/2022 Tdap 04/21/2019,03/23/2008 Zoster, Recombinant 05/28/2022,03/12/2022 Social History Tobacco Use Types Packs/Day Years Used Date Smoking Tobacco: Every Day Cigarettes Smokeless Tobacco: Never Tobacco Cessation:Ready to Q uit: Not Asked; Counseling Given: Not Answered Alcohol Use Standard Drinks/Week Comments Defer 0 (1 standard drink = 0.6 oz pur e alcohol) Housing Stability Answer Date Recorded What is your housing situation today? I have mauricio praker 10/04/[address] you li [...] the past 12 months, has t he [employer], gas, oil or water [employer] threatened to shut off services in your home? No 10/04/2023 Comments No Sex and Gender Information Value Date Recorded Sex Assigned at Female 03/19/2022 10:16 AM EDT Legal Sex Female 10:16 AM EDT Gender Identity Female 03/19/2022 10:16 AM EDT Sexual Orientation Straight 03/19/2022 10 :16 AM EDT Last Filed Vital Signs Vital Sign Reading Time Taken Comments Blood Pressure 142/68 12/13/2023 9:03 AM EDT Pulse 80 12/13/2023 9:03 AM EDT Temperature 36.2 ??C (97.1 ??F) 12/13/2023 9:03 AM ED T Respiratory Rate 16 12/13/2023 9:03 AM EDT Oxygen Saturation 95% 10/15/2023 11:37 AM EDT Inhaled Oxygen Concentration - - Weight 70.1 kg (154 lb 9.6 oz) 12/13/2023 9:03 A M EDT Height 157.5 cm (5' 2 ) 12/13/2023 9:03 AM EDT Body Mass Index 28.28 12/13/2023 9:03 AM EDT Plan of Treatment Health Maintenance Due Date Last Done Comments CT Colonography 1955 Colonoscopy 1955 Colorectal Cancer Screening 1955 Depression Screening 1955 FIT DNA/Cologuard 1955 FIT 1955 FOBT 1955 Sigmoidoscopy 1955 Alcohol/Substance Use Screening 1967 Hepatitis C Screening 07/25/1973 RSV Patients and Patients Aged 60 years or older (1 - Risk 60-74 years 1-dose series) 2015 COVID-19 Vaccine ( - season) 2024 Influenza Vaccine (#1) 2024 , 04/12/2021, 05/23/2018, Additional history exists Diagnostic Breast Imaging 08/05/2024 02/06/2024 Mammogram 08/05/2024 02/06/2024, 08/0 11/2023, 12/19/2017 SDOH Screening 10/03/2024 10/04/2023 Tobacco Screening 12/12/2024 12/13/2023 Lipid Panel 12/12/2028 12/13/2023 DTaP/Tdap/Td Vaccines (3 - Td or Tdap) 04/21/2029 04/21/2019, 03/23/2008 Pneumococcal Vaccine: 50+ Years Completed 03/01/2022 Zoster Vaccines Completed 05/28/2022, 03/12/2022 HIB Vaccines Aged Out No longer eligi ble based on patient's age to complete this topic HPV Vaccines Aged Out No longer eligi ble based on patient's age to complete this topic Hepatitis A Vaccines Aged Out No long er eligible based on patient's age to complete this topic Hepatitis B Vaccines Aged Out No long er eligible based on patient's age to complete this topic IPV Vaccines Aged Out No longer eligi ble based on patient's age to complete this topic Meningococcal Vaccine Aged Out No sourav titus eligible based on patient's age to complete this topic RSV under 20 months Aged Out No longe r eligible based on patient's age to complete this topic Rotavirus Vaccines Aged Out No longer eligible based on patient's age to complete this topic Procedures Procedure Name Priority Date/Time Associated Diagnosis Comments BI US BREAST LIMITED RIGHT Routine 02/06/2024 1:30 PM EDT LIPID PANEL, STANDARD Routine 12/13/2023 12:00 AM EDT Hypercholesterolemi a from Last 3 Months or Most Recently Relevant to Health Maintenance Results * BI US Breast Limited Right (02/06/2024 1:30 PM EDT) Anatomical Region Laterality Modality Breast Right Ultrasound 02/06/2024 1:30 PM EDT Narrative 02/06/2024 1:59 PM EDT ? [facility] ? [address] ?[place] [address] ? Ultrasound Report ? Signed ? Patient: Closser,Fiorentina L ?MR#: [id number] ?? [id number] ? : 1955 ?Acct:[id number] ? Age/Sex: 68 / F ?ADM Date: 02/06/24 ? Loc: HO.MAMMO ? Attending Dr: Laura Mackenzie MD ? Ordering Physician: Laura Mackenzie MD ?? Date of Service: 02/06/24 ?? Procedure(s): US breast RT limited mamm only ?? Accession Number(s): [id number] ? cc: Laura Mackenzie MD ? EXAMINATION: ?? MM DIAGNOSTIC DIGITAL BREAST TOMOSYNTHESIS, RIGHT ?? US BREAST LIMITED, RIGHT ? MAMMOGRAPHY: ?? CLINICAL INFORMATION: ? Diagnostic views for oval masslike focal asymmetry in the 3-4 o'clock ?? axis of the right breast, anterior depth, seen on screening exam. ? COMPARISON: ?? Mammography: 12/25/2023, 12/18/2017, 09/21/2016, dating back to 2014. ? TECHNIQUE: ?? Digital breast tomosynthesis is performed in the following views: Full ?? field 3-D right mediolateral view, as well as 3-D spot compression ?? right CC and MLO views of the anterior breast. ? FINDINGS: ?? There are scattered areas of fibroglandular density (ACR BI-RADS breast ?? composition Category b). ? Diagnostic views demonstrate the presence of a small circumscribed oval ?? mass at 4-5 o'clock, anterior depth, measuring 6 mm. ?? In addition, there is an oval circumscribed retroareolar 12:00 mass ?? measuring approximately 1.1 cm. At the same location as a one view ?? asymmetry without definite CC correlate in the anterior direct ?? retroareolar region, most likely a summation artifact of tissue given ?? the appearance on tomography. ?? These well be evaluated with ultrasound. ? ULTRASOUND: ?? CLINICAL INFORMATION: ?? As above. ? COMPARISON: ?? None contributory. ? TECHNIQUE: ?? Targeted sonographic evaluation right breast was performed using a high ?? frequency linear transducer. ??Attention was given to the 11:00 to the ?? 5:00 axis right breast, anterior depth. Selected archived ?? documentation. ? FINDINGS: ? RIGHT BREAST: ?? -At the 12:00 axis, retroareolar, there is a oval circumscribed 5 x 5 x ?? 7 mm probable dilated duct with internal specular debris, good through ?? transmission, and no internal color Doppler flow. This has no ?? suspicious features and is probably benign related to duct ectasia. ?? -At the 1:00 axis, retroareolar, there is a similar but smaller finding ?? measuring 4 x 4 by 6 mm, with similar imaging features and also likely ?? a benign focus of duct ectasia with internal debris. ?? -At 3:00 axis, anterior periareolar location, there is a small 3 x 2 mm ?? focus of duct ectasia versus a simple cyst which is benign. ? The above findings are all probably benign, correlate with the ?? mammographic findings, and follow-up targeted right breast ultrasound ?? is recommended in 6 months to ensure stability. ? US/US breast RT limited mamm only ?? IMPRESSION: ?? -There are no findings suspicious for malignancy in the right breast. ? -There are probably benign findings at 12:00 and 1:00 retroareolar as ?? described above, most likely related to dilated duct with internal ?? debris. FOLLOW-UP TARGETED RIGHT BREAST ULTRASOUND ONLY is recommended ?? in 6 months to ensure stability. ? OVERALL ASSESSMENT: ?? Mammography: BI-RADS 3 - Probably benign finding(s) - 6 month follow-up ?? suggested ?? Ultrasound: BI-RADS 3 - Probably benign finding(s) - 6 month follow-up ?? suggested ? RECOMMENDATION: ?? 6 Month F/U ? Electronically signed by: ??Nicola Durán MD ??02/06/2024 01:56 PM EDT RP ? Dictated By: ?Nicola Durán MD ? Signed By: ?<Electronically signed by Nicola Durán MD in OV> ?02/06/24 1356 ? DD/ 1330 ? TD/TT: 02/06/24 1348 ? [employer]: ? Procedure Note Donotuseinterpreter, Image - 02/06/2024 [facility] [address] [place], [place] [address] Ultrasound Report Signed Patient: Julia Monzon LMR#: [id number] : 6Acct:[id number] Age/Sex: 68 / FADM Date: 02/06/24 Loc: HO.MAMMO Attending Dr: Laura Mackenzie MD Ordering Physician: Laura Mackenzie MD Date of Service: 02/06/24 Procedure(s): US breast RT limited mamm only Accession Number(s): [id number] cc: Laura Mackenzie MD EXAMINATION: MM DIAGNOSTIC DIGITAL BREAST TOMOSYNTHESIS, RIGHT US BREAST LIMITED, RIGHT MAMMOGRAPHY: CLINICAL INFORMATION: Diagnostic views for oval masslike focal asymmetry in the 3-4 o'clock axis of the right breast, anterior depth, seen on screening exam. COMPARISON: Mammography: 12/25/2023, 12/18/2017, 09/21/2016, dating back to 2014. TECHNIQUE: Digital breast tomosynthesis is performed in the following views: Full field 3-D right mediolateral view, as well as 3-D spot compression right CC and MLO views of the anterior breast. FINDINGS: There are scattered areas of fibroglandular density (ACR BI-RADS breast composition Category b). Diagnostic views demonstrate the presence of a small circumscribed oval mass at 4-5 o'clock, anterior depth, measuring 6 mm. In addition, there is an oval circumscribed retroareolar 12:00 mass measuring approximately 1.1 cm. At the same location as a one view asymmetry without definite CC correlate in the anterior direct retroareolar region, most likely a summation artifact of tissue given the appearance on tomography. These well be evaluated with ultrasound. ULTRASOUND: CLINICAL INFORMATION: As above. COMPARISON: None contributory. TECHNIQUE: Targeted sonographic evaluation right breast was performed using a high frequency linear transducer. Attention was given to the 11:00 to the 5:00 axis right breast, anterior depth. Selected archived documentation. FINDINGS: RIGHT BREAST: -At the 12:00 axis, retroareolar, there is a oval circumscribed 5 x 5 x 7 mm probable dilated duct with internal specular debris, good through transmission, and no internal color Doppler flow. This has no suspicious features and is probably benign related to duct ectasia. -At the 1:00 axis, retroareolar, there is a similar but smaller finding measuring 4 x 4 by 6 mm, with similar imaging features and also likely a benign focus of duct ectasia with internal debris. -At 3:00 axis, anterior periareolar location, there is a small 3 x 2 mm focus of duct ectasia versus a simple cyst which is benign. The above findings are all probably benign, correlate with the mammographic findings, and follow-up targeted right breast ultrasound is recommended in 6 months to ensure stability. US/US breast RT limited mamm only IMPRESSION: -There are no findings suspicious for malignancy in the right breast. -There are probably benign findings at 12:00 and 1:00 retroareolar as described above, most likely related to dilated duct with internal debris. FOLLOW-UP TARGETED RIGHT BREAST ULTRASOUND ONLY is recommended in 6 months to ensure stability. OVERALL ASSESSMENT: Mammography: BI-RADS 3 - Probably benign finding(s) - 6 month follow-up suggested Ultrasound: BI-RADS 3 - Probably benign finding(s) - 6 month follow-up suggested RECOMMENDATION: 6 Month F/U Electronically signed by: Nicola Durán MD 02/06/2024 01:56 PM EDT Dictated By: Nicola Durán MD Signed By: <Electronically signed by Nicola Durán MD in OV> 02/06/24 1356 DD/ 1330 TD/TT: 02/06/24 1348 [employer]: us Laura Mackenzie MD IMG US PROCEDURES Final Result * (ABNORMAL) Lipid Panel, Standard (12/13/2023 12:00 AM EDT) Triglycerides 117 <150 mg/dL [facility] Comment:Desirable Triglyceri de: less than 150 mg/dLBorderline High Triglyceride 150-199 mg/dLHigh Triglyceride: 200-499 mg/dLVery High Triglyceride: greater than or equal to 5OO mg/dL Cholesterol 244(H) <200 mg/dL [facility] Comment:Desirable Cholestero l: less than 200 mg/dLBorderline High Cholesterol: 200-239 mg/dLHigh Cholesterol: greater than 239 mg/dL LDL Cholesterol Calculated 166(H) <100 mg/dL [facility] Comment:Desirable LDL: less than 100 mg/dLNear Optimal/Above Optimal LDL: 110- 129 mg/dLBorderline High LDL: 130-159 mg/dLHigh LDL: 160-189 mg/dLVery High LDL: greater than or equal to 190 mg/dL HDL Cholesterol 55 >40 mg/dL [facility] Comment:Desirable HDL: great er than 40 mg/dL Note: This HDL assay may give artificially low results in patients with liver disease. Blood Venous blood specimen / Unknown 12/13/2023 12/13/2023 us Laura Mackenzie MD LAB BLOOD ORDERABLES Final Resul t [facility] [address] [place] [address] [phone] from Last 3 Months or Most Recently Relevant to Health Maintenance Insurance [place] [address] [place] [address] [place] [id number] [facility] STANDARD Care Teams Production Team Advisor Relationship Specialty Start Date End Date Laura Mackenzie MD [address] [place] [id number] PCP - General Family Medicine 12/30/14
--- OUTSIDE RECORDS SUMMARY | 2024-08-31 12:33 | XMS_ITS | Encounter Summary ---
Author Organization [employer] Address [address] [facility] [address] [place] [address] Care Team Providers Care Director Of Student Services Name Role Phone Laura Mackenzie MD Primary Care Provider [phone] Reason for Visit * Reason Comments Med Refill Encounter Details Date Type Department Care Team ([facility] st Contact Info) Description 01/01/2023 Refill [facility] [address] [place], [place] [phone] Laura Mackenzie MD [address] [place], [place] [phone] Uncomplicated asthma, unspecified asthma severity, unspecified whether [...] persistent documented in this encounter Care Teams Director Of Student Services Relationship Specialty Start Date End Date Laura Mackenzie MD [address] [place] [id number] PCP - General Family Medicine 12/30/14 documented as of this encounter
== END 2024-08-31 11:42 | disposition home or self-care (01) ==
LOC: HO.HPS 10:46
PROVIDERS: PCP Student in an Organized Health Care Education/Training Program; Visit Provider Nurse Practitioner Family
DX: J44.9 Chronic obstructive pulmonary disease, unspecified (principal); F17.210 Nicotine dependence, cigarettes, uncomplicated; R06.00 Dyspnea, unspecified
CPT/HCPCS: 94618; 99214

== ENCOUNTER → 2024-08-31 10:41 | Outpatient (BNVA) | payer MEDICARE, MEDICAID, SELFPAY | PROVIDERS: PCP Student in an Organized Health Care Education/Training Program; Visit Provider Nurse Practitioner Family | DX: J44.9 Chronic obstructive pulmonary disease, unspecified (principal); R06.00 Dyspnea, unspecified; F17.210 Nicotine dependence, cigarettes, uncomplicated | CPT/HCPCS: 94618; 99212 ==

== ENCOUNTER 2024-10-30 18:26 | Inpatient (IN) | payer MEDICARE, OTHER, SELFPAY ==
--- NOTE | ~2024-10-30 | XR_ITS ---
CLINICAL HISTORY: shortness of breath 2 view chest x-ray Comparison: None Findings: No consolidation, pneumothorax, or pleural effusion. Borderline elevation left hemidiaphragm. Mild emphysematous changes. Borderline cardiomegaly likely prominence of the right atrium. Degenerative changes include the imaged shoulders, AC joints, and spine. IMPRESSION: No consolidation. This document has been electronically signed by: Surendra Galarza MD on 10/30/2024 19:16:29
--- NOTE | ~2024-10-30 | CT_ITS ---
CLINICAL HISTORY: wt loss, rectal bleeding CT abdomen and pelvis with contrast Comparison: None available Findings: Mild bibasilar atelectasis/pneumonitis. Emphysematous changes also partially imaged in the lung bases. Heart size within limits of normal is partially imaged. Mild fat deposition in the liver. Cholelithiasis suggested by CT with artifacts. Mild adrenal hyperplasia. Spleen is nonenlarged with calcified remnants of old granulomatous process. Mild-moderate volume loss of the imaged pancreas. No hydronephrosis. No suspicious features of the imaged small cystic lesions in the kidneys. Calcified and noncalcified plaque involving the imaged aorta and its branches in this nonvascular study. Nonenlarged lymphadenopathy by CT. No small bowel obstruction. Fluid and multiple small-bowel loops can be seen with enteritis. Wall thickening of the large intestine is nonspecific and likely reflect colitis, including the cecum. The appendix is not definitively seen. Uterus is diminutive or absent. No adnexal soft tissue mass by CT. Mild wall thickening of the urinary bladder is nonspecific and may reflect cystitis. Mild pelvis deformities appear old/chronic. Grade 1 anterolisthesis at L4-L5. Mild retrolisthesis of the T11-T12. Facet arthropathy is multi level. IMPRESSION: 1. Wall thickening of the large intestine is nonspecific, including the cecum. Differential considerations include colitis. 2. No small bowel obstruction. 3. Mild wall thickening of the urinary bladder. 4. Cholelithiasis. This document has been electronically signed by: Surendra Galarza MD on 10/30/2024 22:25:32
--- NOTE | ~2024-10-30 | XR_ITS ---
EXAMINATION: XR CHEST CLINICAL INFORMATION: sob COMPARISON: 10/30/2024 CT chest. TECHNIQUE: Frontal view of the chest was obtained. FINDINGS: The cardiac, hilar, and mediastinal contours are normal. There is underlying COPD again noted. There is diffuse haziness of the interstitium with Boris B lines in the lung bases, suggesting interstitial pulmonary edema. There is blunting of the costophrenic sulci suggesting tiny effusions. There is likely bibasilar atelectasis. There is no pneumothorax. XR/XR chest 1V IMPRESSION: COPD. Mild interstitial pulmonary edema suspected, with questionable tiny pleural effusions. Electronically signed by: Nicola Durán MD 11/02/2024 12:29 PM EDT
--- NOTE | ~2024-10-30 | CT_ITS ---
CLINICAL HISTORY: wt loss, cough CT chest with contrast Comparison: None Findings: Mild bibasilar atelectasis/pneumonitis with motion artifacts. Moderate emphysematous changes in both lungs. No consolidation. Calcified and noncalcified plaque involving the imaged aorta and its branches. Heart size within limits of normal. Nonenlarged mediastinal lymphadenopathy by CT. No pneumothorax or pleural effusion. Mild imaged rib deformities appear old/chronic. Minimal vertebral height losses appear old/chronic. Degenerative disc changes are multifocal including vacuum disc phenomenon. Facet arthropathy is also multifocal. Please refer to separate report for included imaged abdomen. IMPRESSION: 1. Mild bibasilar atelectasis/pneumonitis. 2. Moderate emphysematous changes. No masslike consolidation at this time. This document has been electronically signed by: Surendra Galarza MD on 10/30/2024 22:26:43
[2024-10-30 18:31] VITALS: BP 138/85; PULSE 120; RESP 24; TEMP 36.3; O2SAT 94; BMI 22.3
--- NOTE | 2024-10-30 18:31 | ED.GENADULT ---
HPI - General Adult General Chief complaint: Dyspnea Stated complaint: sob, rectal bleeding Time Seen by Provider: 10/30/24 19:17 History of Present Illness ED Provider: Prem Toure MD HPI narrative: 69-year-old female with history of COPD presenting with dyspnea generalized atypical nonexertional chest discomfort and body aches. Feels generally unwell several days. Poor p.o. intake she is moving her bowels and urinating with decreased due to the lack of significant intake at least for the past 2-3 days. At triage she reported blood in the urine and stool ongoing for 2 months she denies bright red blood or gross hematuria to me Related Data Home Medications ?Medication ?Instructions ?Recorded ?Confirmed fluticasone fur. 200 mcg-umeclid 1 ea inhalation DAILY 10/30/24 10/31/24 62.5 mcg-vilant 25 mcg inhalat.powder (Trelegy Ellipta) albuterol sulfate 90 mcg/actuation 2 puff inhalation Q4H PRN wheezing 10/31/24 10/31/24 aerosol inhaler (Ventolin HFA) simvastatin 20 mg tablet 20 mg PO BEDTIME 10/31/24 10/31/24 Previous Rx's ?Medication ?Instructions ?Recorded ipratropium 0.5 mg-albuterol 3 mg 3 ml inhalation Q6H PRN wheezing 04/27/24 (2.5 mg base)/3 mL nebulization #90 mL soln Allergies Allergy/AdvReac Type Severity Reaction Status Date / Time azithromycin (AZITHROMYCIN) Allergy Unknown AGITATION Verified 10/31/24 07:41 [facility] Past Medical History Medical History Hypercholesteremia COPD (chronic obstructive pulmonary disease) Nicotine dependence, cigarettes, uncomplicated Vitamin D deficiency Surgical History History of hysterectomy History of appendectomy History of tonsillectomy Family History Family History Daughter Leiomyosarcoma Sister Lung cancer Social History Social History Household Members: None Household Members Other:: son live upstairs Housing: House Do you presently have visiting nurse or other home services: No Alcohol intake: never Patient Tobacco Use Status: Current everyday Tobacco user Tobacco use type: Cigarette Cigarettes Per Day: 6 Years Smoked: (onset 18yo, 1/2ppd x 50yrs, 25pyh) Second Hand Smoke Exposure: No service: No Physical Exam ED Vital Signs: BMI result Body Mass Index 22.3 Const Other: EXAM: Gen: Alert, awake, mildly dyspneic respiratory rate about 22-24, thin frail chronically ill-appearing not distressed Head: Atraumatic Eyes: Anicteric, Normal conjunctiva. ENT: Moist mucosa, no pallor. ? Neck: Supple. Skin: ?No observable rash or bruising on exposed or examined skin Respiratory: Decreased air entry, scant wheeze. Mild tachypnea speaking full sentences Cardiovascular: Regular rate and rhythm. No murmurs or rub. Well perfused periphery, warm extremities. No edema. ? Abdominal: No FOCAL TENDERNESS. Soft, no objective distension. No palpable masses or obvious organomegaly. ?No guarding, no rebound tenderness or other peritoneal findings. : No flank tenderness. Neuro: Alert. Gross movement of all extremities intact. ? Psych: Calm. Cooperative. MSK: No grossly visible deformity. Vital signs: See flowsheet Course Course Course Narrative: This is an RME: Additional HPI, ROS, PE not included below will be deferred to primary provider. RME assessment and note performed by: Areli Srinivasan PA-C This is a 69 year old female, current smoker with 40+ pack-year history, underlying severe COPD and severe emphysema, who presents to the ER with complaints of body aches, fatigue, chest pain, shortness of breath, rectal bleeding for several weeks. Reports that she has lost a significant amount of weight. Loss of appetite. Tight, inspiratory and expiratory wheezes noted throughout all lung allison. Tachycardic at 118bpm. Pt with obvious global weakness. Plan: Labs, EKG, CXR, viral swabs, further ER eval needed Medications Administered Generic Name Dose Route Start Last Admin Trade Name Freq PRN Reason Stop Dose Admin Acetaminophen 650 mg 10/30/24 22:32 11/01/24 14:47 Acetaminophen 325 Mg Tablet PO 650 mg Q6H PRN Administration Pain, Mild 1-3,fever,headache Albuterol/Ipratropium 3 ml 10/31/24 08:00 11/04/24 11:20 Albuterol/Iprat 2.5/0.5mg 3 Ml Ampul.Neb INHALE Not Given RQ4H WHILE AWAKE [facility] Atorvastatin Calcium 10 mg 10/31/24 13:15 11/04/24 09:08 Atorvastatin Calcium 10 Mg Tablet PO Not Given DAILY RIANA Clonazepam 0.5 mg 11/03/24 15:00 11/04/24 09:13 Clonazepam 0.5 Mg Tablet PO Not Given TID [facility] Fluticasone/Umeclidinium/Vilanterol 1 puff 11/01/24 08:00 11/04/24 07:35 Fluticasone/Umeclidinium/Vilanterol 200/62.5/ Blst.W.Dev INHALE Not Given RDAILY [facility] Piperacillin Sod/Tazobactam 50 mls @ 100 mls/hr 11/02/24 10:45 11/04/24 11:13 Sod 3.375 gm/ Sodium Chloride IV Not Given Q6H [facility] Melatonin 6 mg 10/30/24 22:32 11/02/24 23:25 Melatonin 3 Mg Tablet PO 6 mg BEDTIME PRN Administration Insomnia Methylprednisolone Sodium Succinate 60 mg 11/03/24 10:00 11/04/24 09:13 Methylprednisolone Sod Succ 125 Mg/2 Ml Vial IVPUSH Not Given Q6H [facility] Ondansetron HCl 4 mg 10/30/24 22:32 11/02/24 18:32 Ondansetron Hcl 4 Mg/2 Ml Vial IVPUSH 4 mg Q8H PRN Administration Nausea and Vomiting Sodium Chloride 3 ml 10/31/24 00:00 11/04/24 09:14 0.9 % Sodium Chloride Flush 3 Ml Syringe IVFLUSH Not Given QSHIFT [facility] Discontinued Medications Generic Name Dose Route Start Last Admin Trade Name Freq PRN Reason Stop Dose Admin Albuterol/Ipratropium 3 ml 10/30/24 19:54 10/30/24 20:08 Albuterol/Iprat 2.5/0.5mg 3 Ml Ampul.Neb INHALE 10/30/24 19:55 3 ml ONCE ONE Administration Albuterol Sulfate 5 mg/ 0 mg 10/30/24 18:59 10/30/24 19:04 Albuterol/Ipratropium 3 ml INHALE 10/30/24 19:00 1 each ONCE ONE Administration Doxycycline Monohydrate 100 mg 11/01/24 12:00 11/02/24 00:17 Doxycycline Monohydrate 100 Mg Capsule PO 100 mg Q12H RIANA Administration Hydroxyzine HCl 50 mg 11/01/24 19:45 11/01/24 20:17 Hydroxyzine Hcl 50 Mg Tablet PO 11/01/24 19:46 50 mg ONCE ONE Administration Sodium Chloride 1,000 mls @ 999 mls/hr 10/30/24 20:00 10/31/24 01:14 Ns IV 10/30/24 21:00 Infused .Q1H1M RIANA Infusion Potassium Chloride/Dextrose/Sod Cl 10 meq in 1,000 mls @ 500 mls/hr 10/30/24 20:15 10/31/24 14:43 Kcl 10 Meq In 5% Dex/0.45% Sod IVCONT Not Given .Q2H RIANA Magnesium Sulfate 2 gm in 50 mls @ 25 mls/hr 10/30/24 20:01 10/31/24 01:14 Magnesium Sulfate/H2o IV 10/30/24 22:00 Infused ONCE ONE Infusion Doxycycline Hyclate 100 mg/ 250 mls @ 166.67 mls/hr 10/30/24 23:00 11/01/24 02:10 Sodium Chloride IV Infused Q12H RIANA Infusion Iohexol 100 ml 10/30/24 21:21 10/30/24 21:21 Iohexol 350 Mg/Ml 100 Ml Infus..Btl IV 10/30/24 21:22 85 ml ONCE ONE Administration Lorazepam 1 mg 10/30/24 21:10 10/30/24 21:38 Lorazepam 1 Mg Tablet PO 10/30/24 21:11 1 mg ONCE ONE Administration Methylprednisolone Sodium Succinate 125 mg 10/30/24 19:54 10/30/24 21:07 Methylprednisolone Sod Succ 125 Mg Vial IVPUSH 10/30/24 19:55 125 mg ONCE ONE Administration Methylprednisolone Sodium Succinate 60 mg 10/31/24 13:00 11/03/24 09:55 Methylprednisolone Sod Succ 125 Mg Vial IVPUSH Not Given Q6H RIANA Potassium Chloride 20 meq 10/30/24 20:01 10/30/24 20:48 Potassium Chloride Er 20 Meq Tab.Er.Prt PO 10/30/24 20:02 20 meq ONCE ONE Administration Potassium Chloride 40 meq 10/30/24 20:36 10/30/24 20:50 Potassium Chloride Packet 20 Meq Packet PO 10/30/24 20:37 40 meq ONCE ONE Administration Prednisone 40 mg 10/31/24 09:00 10/31/24 08:18 Prednisone 20 Mg Tablet PO 40 mg DAILY RIANA Administration Medical Decision Making Medical Decision Making [facility] Narrative: [age] female with history of COPD with decreased p.o. intake dyspnea on exertion. Wheeze decreased air entry mild tachypnea. Empiric treatment for a COPD exacerbation No infiltrate on xray or ischemia on ECG. No noninvasive ventilatory support required. Nasal cannula oxygen is new. Diagnosis coma acute hypoxic respiratory failure likely secondary to COPD could be concomitant pulmonary edema or bronchitis Differential Diagnosis Differential Diagnoses: The differential diagnosis associated with the presentation includes COPD, pneumonia, pulmonary edema, pleural effusion, pneumothorax, failure to thrive, electrolyte derangement, dehydration Consult Healthcare Provider Management of the patient was discussed with: Hospitalist Lab Data [facility] Lab Attestation statement: I reviewed the patient's lab results. 11/03/24 06:30 11/03/24 06:30 Labs: Lab Results 10/30/24 10/30/24 Range/Units 19:38 19:43 WBC 6.0 (4.8-10.8) X10*3/uL RBC 5.18 (4.20-5.50) X10*6/uL Hgb 15.8 (12.0-16.0) g/dl Hct 45.5 (37.0-47.0) % MCV 87.8 (80.0-98.0) fL MCH 30.5 (27.0-33.0) pg MCHC 34.7 (31.0-35.0) g/dl RDW 13.0 (11.0-16.0) % Plt Count 187 (160-400) X10*3/uL MPV 10.7 (9.4-12.3) fL Immature Gran % (Auto) 0.3 (0.0-0.4) % Neut % (Auto) 68.2 (45-73) % Lymph % (Auto) 20.5 (20-40) % [place] % (Auto) 10.2 (2-11) % Eos % (Auto) 0.3 (0-4) % Baso % (Auto) 0.5 (0-2) % Lymph # (Auto) 1.2 (1.2-4.9) X10*3/uL [place] # (Auto) 0.6 (0.1-1.2) X10*3/uL Eos # (Auto) 0.0 (0.0-0.4) X10*3/uL Baso # (Auto) 0.0 (0.0-0.2) X10*3/uL Abs Immat Gran (auto) 0.02 (0.00-0.03) X10*3/uL Absolute Neuts (auto) 4.1 (2.0-8.3) x10*3/uL Absolute Nucleated RBC 0.000 (0.0-0.012) X10*3/uL Nucleated RBC % (auto) 0.0 (0.0-0.2) /100WBC VBG pH 7.49 H (7.32-7.43) VBG pCO2 46 mmHg VBG pO2 56 mmHg VBG HCO3 35 H (22-26) mmol/L VBG O2 Saturation 84.0 % VBG Base Excess 10.4 mmol/L Sodium 146 H (135-145) mmol/L Potassium 2.6 L* D (3.3-5.1) mmol/L Chloride 103 (96-108) mmol/L Carbon Dioxide 29 (22-29) mmol/L Anion Gap 17 (12-20) BUN 19 H (9-16) mg/dL Creatinine 1.01 (0.5-1.4) mg/dL Estim Creat Clear Calc 45.4 Estimated GFR 54 Random Glucose 144 H (60-115) mg/dL Calcium 9.5 (8.4-10.2) mg/dL Magnesium 1.6 (1.6-2.6) mg/dL Total Bilirubin 0.8 (0.0-1.0) mg/dL Direct Bilirubin 0.3 (0.0-0.5) mg/dL AST 21 (5-31) U/L ALT 12 (0-31) U/L Alkaline Phosphatase 53 (39-117) U/L Troponin I High Sens 6.4 (<3.5-17.0) ng/L Total Protein 6.3 L (6.5-8.0) g/dL Albumin 4.1 (3.5-5.0) g/dL Lipase 19 (8-78) U/L Influenza Type A (PCR) NEGATIVE (Negative) Influenza Type B (PCR) NEGATIVE (Negative) RSV RNA Qual (PCR) NEGATIVE (Negative) SARS-CoV-2 RNA (RT-PCR) NEGATIVE (Negative) Independent Interpretation I performed an independent interpretation of an: EKG (Sinus tachycardia, irregular baseline possible tremor. Erroneous QTC measurement. ST depressions laterally nonspecific) Discharge Plan Discharge Clinical Impression: Acute exacerbation of chronic obstructive pulmonary disease Patient Disposition: Admitted As Inpatient Interventions: Admission Worksheet (ED) Last Done: 10/31/24 11:08 Discharge Date/Time: 10/31/24 12:30
--- NOTE | 2024-10-30 18:34 | ECG_ITS ---
Test Reason : DYSPNEA Blood Pressure : */* mmHG Vent. Rate : 102 BPM Atrial Rate : 102 BPM P-R Int : 112 ms QRS Dur : 86 ms QT Int : 384 ms P-R-T Axes : * 88 8 degrees QTcB Int : [address] & T wave abnormality, consider inferior ischemia Abnormal ECG When compared with ECG of 17-May-2012 18:26, ST depression is more prominent in inferior and inferolateral lead Referred By: Areli Srinivasan Electronically Signed By: TERESA CHEN MD
[2024-10-30 19:04] VITALS: PULSE 100; RESP 24; O2SAT 96
[2024-10-30] MEDS: Albuterol Sulfate 5 MG, Albuterol/Iprat 2.5/0.5MG 3 ML 3 ML INHALE (19:04)
[2024-10-30 19:44] LABS: Basophils Percent Auto 0.5 % (0-2); Eosinophils Percent Auto 0.3 % (0-4); Hematocrit 45.5 % (37.0-47.0); Hemoglobin 15.8 g/dl (12.0-16.0); Imm Gran Abs Auto 0.02 X10*3/uL (0.00-0.03); Imm Gran Pct Auto 0.3 % (0.0-0.4); Lymphocytes Absolute Auto 1.2 X10*3/uL (1.2-4.9); Lymphocytes Percent Auto 20.5 % (20-40); MANUAL DIFF FLAG NO; Mean Corpuscular HGB Conc 34.7 g/dl (31.0-35.0); Mean Corpuscular Hemoglobin 30.5 pg (27.0-33.0); Mean Corpuscular Volume 87.8 fL (80.0-98.0); Mean Platelet Volume 10.7 fL (9.4-12.3); Monocytes Absolute Auto 0.6 X10*3/uL (0.1-1.2); Monocytes Percent Auto 10.2 % (2-11); Neutrophils Absolute Auto 4.1 x10*3/uL (2.0-8.3); Neutrophils Percent Auto 68.2 % (45-73); Platelet Count 187 X10*3/uL (160-400); Red Blood Count 5.18 X10*6/uL (4.20-5.50)
[2024-10-30 19:46] LABS: VBG Base Excess 10.4 mmol/L; VBG HCO3 35 mmol/L (22-26); VBG pCO2 46 mmHg; VBG pH 7.49 (7.32-7.43); VBG pO2 56 mmHg
[2024-10-30 19:48] LABS: Venous Blood Gas Refer to POC result
[2024-10-30 20:01] LABS: Alanine Aminotransferase 12 U/L (0-31); Albumin Level 4.1 g/dL (3.5-5.0); Alkaline Phosphatase 53 U/L (39-117); Anion Gap 17 (12-20); Aspartate Amino Transferase 21 U/L (5-31); Bilirubin Direct 0.3 mg/dL (0.0-0.5); Bilirubin Total 0.8 mg/dL (0.0-1.0); Blood Urea Nitrogen 19 mg/dL (9-16); Calcium 9.5 mg/dL (8.4-10.2); Carbon Dioxide 29 mmol/L (22-29); Chloride 103 mmol/L (96-108); Creatinine Clr Calc Pharmacy 45.4; Estimated Glomerular Filt Rate 54; Glucose Random 144 mg/dL (60-115); Lipase 19 U/L (8-78); Magnesium 1.6 mg/dL (1.6-2.6); Potassium 2.6 mmol/L (3.3-5.1); Sodium 146 mmol/L (135-145); Total Protein 6.3 g/dL (6.5-8.0)
[2024-10-30 20:03] VITALS: O2SAT 88
[2024-10-30 20:05] LABS: Troponin-I High Sensitivity 6.4 ng/L (<3.5-17.0)
[2024-10-30] MEDS: Albuterol/Iprat 2.5/0.5MG 3 ML AMPUL.NEB INHALE (20:08)
[2024-10-30 20:10] VITALS: PULSE 104; RESP 22; O2SAT 97
[2024-10-30 20:21] LABS: Influenza A PCR NEGATIVE (Negative); Influenza B PCR NEGATIVE (Negative); Resp Syncy Virus RNA Qual PCR NEGATIVE (Negative); SARS COV2 PCR INHOUSE NEGATIVE (Negative)
[2024-10-30] MEDS: Potassium Chloride ER 20 MEQ TAB.ER.PRT PO (20:48)
[2024-10-30] MEDS: Potassium Chloride Packet 20 MEQ PACKET 40 MEQ PO (20:50)
[2024-10-30] MEDS: Magnesium Sulfate/H2O 2 GM/50 ML PIGGYBACK IV (21:07)
[2024-10-30] MEDS: 0.9 % Sodium Chloride 1,000 ML 999 ML IV (21:09)
[2024-10-30] MEDS: iohexoL 350 MG/ML 100 ML INFUS..BTL IV (21:21)
[2024-10-30] MEDS: LORazepam 1 MG TABLET PO (21:38)
--- NOTE | 2024-10-30 22:30 | PC.NURSE ---
Assumed care of patient at 1910, pt on 2L NC SPO2:96% pt does not use oxygen at home, anxious and does not want to stay. Alert and oriented X4, Hospitalist at bedside and assessed patient, pt willing to stay, ordered for PO lorazepam. IV #20 placed in L-AC, meds administerd per JUL. KCL in dex not available insupervisor called and will administer when available. Pt went for CT and xray completed.
--- NOTE | 2024-10-30 22:34 | PM.IMHP ---
History of Present Illness Date of Service: 10/30/24 Chief Complaint: Dyspnea This is a 69-year-old female with pertinent history of COPD not on home oxygen, tobacco use disorder, mixed hyperlipidemia who presents to the emergency department for evaluation of dyspnea. Patient states she has been having shortness of breath that has been ongoing for a while and worsened in the last few days. Dyspnea is worse with exertion but no orthopnea or PND. Has associated productive cough with clear sputum production and wheezing. Patient took her home inhaler without any relief with wheezing. No lower extremity leg swelling. Also reports generalized body ache and fatigue. Patient has a 40 pack year plus smoking history. Also states he has noticed intermittent blood per rectum which is painless. No abdominal discomfort. No fever or chills. Patient also noticed change in color of urine, questionable blood in urine. No fever, chills, chest pain, palpitations. In the emergency department, patient wheezing despite multiple DuoNeb treatments and steroids. Also found to be hypoxic and placed on supplemental oxygen. Review of Systems Constitutional: Constitutional: Reports fatigue, Reports lethargy, Reports malaise and Reports poor appetite Cardiovascular: Cardiovascular: Reports dyspnea on exertion Respiratory: Respiratory: Reports cough, Reports dyspnea on exertion and Reports wheezing Gastrointestinal: Gastrointestinal: Reports no additional gastrointestinal complaints Genitourinary: Genitourinary: Reports no additional female genitourinary complaints Endocrine: Endocrine: Reports fatigue Allergic/Immunologic: Allergic/Immunologic: Reports wheezing [facility] Medical History Hypercholesteremia COPD (chronic obstructive pulmonary disease) Nicotine dependence, cigarettes, uncomplicated Vitamin D deficiency Family History Daughter Leiomyosarcoma Sister Lung cancer Surgical History History of hysterectomy History of appendectomy History of tonsillectomy Social History Patient Tobacco Use Status: Current everyday Tobacco user Tobacco use type: Cigarette Cigarettes Per Day: 6 Years Smoked: (onset 18yo, 1/2ppd x 50yrs, 25pyh) Advance Directives: No Advance Directives Information Provided: No Do you have a plan to hurt others: No Plan Meds Allergies Allergy/AdvReac Type Severity Reaction Status Date / Time azithromycin [AZITHROMYCIN] Allergy Unknown AGITATION Unverified 10/30/24 18:33 Active Medications: Current Medications Potassium Chloride/Dextrose/Sod Cl (Kcl 10 Meq In 5% Dex/0.45% Sod) 10 meq in 1,000 mls @ 500 mls/hr IVCONT .Q2H RIANA Home Medications ?Medication ?Instructions ?Recorded ?Confirmed ?Last Taken ?Type albuterol sulfate 90 mcg/actuation 2 puff inhalation Q6H PRN 11/04/23 08/31/24 Unknown History aerosol inhaler (Ventolin HFA) fluticasone fur. 200 mcg-umeclid 1 ea inhalation DAILY 10/30/24 Unknown History 62.5 mcg-vilant 25 mcg inhalat.powder (Trelegy Ellipta) Physical Exam Vital Signs and Narrative: Vital Signs: Last Vital Signs Temp 97.3 F 10/30/24 18:31 Pulse 104 H 10/30/24 20:10 Resp 22 H 10/30/24 20:10 BP 138/85 10/30/24 18:31 Pulse Ox 88 L 10/30/24 20:03 O2 Del Method Room Air 10/30/24 20:03 BMI result Body Mass Index 22.3 Middle-aged female lying in bed in mild distress on supplemental oxygen Neck supple, no JVD Regular rate and rhythm, S1-S2 heard Bilateral expiratory wheezing appreciated Abdomen soft nontender, no guarding, no rigidity Patient is awake, alert and oriented to self, place, time and person ; no focal motor deficit Psych: Normal mood No pedal edema Results Labs 10/30/24 19:38 10/30/24 19:38 Labs: Laboratory Results - last 24 hr 10/30/24 10/30/24 19:38 19:43 MCV 87.8 MCH 30.5 MCHC 34.7 RDW 13.0 Plt Count 187 MPV 10.7 Immature Gran % (Auto) 0.3 Neut % (Auto) 68.2 Lymph % (Auto) 20.5 [place] % (Auto) 10.2 Eos % (Auto) 0.3 Baso % (Auto) 0.5 Lymph # (Auto) 1.2 [place] # (Auto) 0.6 Eos # (Auto) 0.0 Baso # (Auto) 0.0 Abs Immat Gran (auto) 0.02 Absolute Neuts (auto) 4.1 Absolute Nucleated RBC 0.000 Nucleated RBC % (auto) 0.0 VBG pH 7.49 H VBG pCO2 46 VBG pO2 56 VBG HCO3 35 H VBG O2 Saturation 84.0 VBG Base Excess 10.4 Anion Gap 17 Estim Creat Clear Calc 45.4 Estimated GFR 54 Random Glucose 144 H Calcium 9.5 Magnesium 1.6 Total Bilirubin 0.8 Direct Bilirubin 0.3 AST 21 ALT 12 Alkaline Phosphatase 53 Troponin I High Sens 6.4 Total Protein 6.3 L Albumin 4.1 Lipase 19 Influenza Type A (PCR) NEGATIVE Influenza Type B (PCR) NEGATIVE RSV RNA Qual (PCR) NEGATIVE SARS-CoV-2 RNA (RT-PCR) NEGATIVE Assessment and Plan (1) Acute hypoxemic respiratory failure: Status: Acute (2) COPD exacerbation: Status: Acute Plan This is a 69-year-old female with pertinent history of COPD not on home oxygen, tobacco use disorder, mixed hyperlipidemia who presents to the emergency department for evaluation of dyspnea. #. Acute hypoxemic respiratory failure due to acute exacerbation of COPD: Will admit patient with supplemental oxygen. Scheduled and p.r.n. DuoNebs. Continue home inhaler. Initiating systemic steroids. Initiating doxycycline for pleiotropic effect #. Tobacco use disorder: NRT while in the hospital #. Hypokalemia: Repleted #. ?Hematuria: No clots. UA pending #. ?Hematochezia: Intermittent as per the patient. Hemoglobin stable. Consider GI consult if H&H drops. Imaging with colitis. #. Mixed hyperlipidemia: On statin Med rec pending DVT prophylaxis: Mechanical Full code. Discussed with patient at bedside Admit as inpatient and will require two night minimum hospital stay for supplemental oxygen, monitoring of respiratory status (as above), which is not possible in a lesser acute setting. Quality Stroke Does the patient have a stroke diagnosis?: No VTE Prior VTE?: No VTE Risk Level:: Medical - moderate - high VTE Device Contraindication: N/A - Device Ordered VTE Drug Contraindication: Treatment Not Indicated
[2024-10-30] MEDS: KCl 10 mEq in 5% Dex/0.45% Sod 10 MEQ/1,000 ML IV.SOLN 500 MEQ IVCONT (23:05)
[2024-10-30] MEDS: Melatonin 3 MG TABLET 6 MG PO (23:31)
[2024-10-31] VITALS (10 sets, daily range): BP systolic 106–127; BP diastolic 50–61; PULSE 60–98; RESP 16–20; TEMP 36–37.1; O2SAT 91–100; BMI 24.4
[2024-10-31] MEDS: Doxycycline Hyclate 100 MG in 0.9 % Sodium Chloride 250 ML 166.67 MG IV ×3 (01:51→23:56)
[2024-10-31 02:34] LABS: Appearance Urine Clear; Color Urine Dark Yellow; Glucose Urine UA 500 mg/dL (Negative); Leukocyte Esterase Urine Negative (Negative); Nitrite Urine Negative (Negative); Specific Gravity - Urine >= 1.030 (1.005-1.025); Urine Blood Negative (Negative); Urine Ketones Trace mg/dL (Negative); Urine Protein Trace mg/dL (Neg-Trace)
--- NOTE | 2024-10-31 02:43 | PC.NURSE ---
RN ambulated pt to the bathroom. unsteady on feet. Had some lightheadedness. fall risk. Pt urinated 40mls. urine sent to lab. RN walked pt back to bed. placed back on O2. Will continue to monitor.
[2024-10-31] MEDS: KCl 10 mEq in 5% Dex/0.45% Sod 10 MEQ/1,000 ML IV.SOLN 500 MEQ IVCONT ×2 (05:27→12:18)
[2024-10-31 06:41] LABS: MANUAL DIFF FLAG NO
[2024-10-31 06:45] LABS: Hematocrit 38.7 % (37.0-47.0); Hemoglobin 13.1 g/dl (12.0-16.0); Imm Gran Abs Auto 0.01 X10*3/uL (0.00-0.03); Imm Gran Pct Auto 0.3 % (0.0-0.4); Lymphocytes Absolute Auto 0.3 X10*3/uL (1.2-4.9); Lymphocytes Percent Auto 9.2 % (20-40); Mean Corpuscular HGB Conc 33.9 g/dl (31.0-35.0); Mean Corpuscular Hemoglobin 30.5 pg (27.0-33.0); Mean Platelet Volume 11.1 fL (9.4-12.3); Monocytes Absolute Auto 0.2 X10*3/uL (0.1-1.2); Monocytes Percent Auto 5.4 % (2-11); Neutrophils Absolute Auto 2.7 x10*3/uL (2.0-8.3); Neutrophils Percent Auto 85.1 % (45-73); Platelet Count 150 X10*3/uL (160-400); White Blood Count 3.2 X10*3/uL (4.8-10.8)
[2024-10-31] MEDS: Albuterol/Iprat 2.5/0.5MG 3 ML AMPUL.NEB INHALE ×4 (07:11→19:46)
--- NOTE | 2024-10-31 08:10 | PHA.MEDREC ---
Addendum entered by Jerri Grijalva RPh 10/31/24 08:14: MED REC REVIEWED Original Note: Pharmacy Consult ? Medication Reconciliation Pharmacy has completed the medication reconciliation. Patient states she is taking Simvastatin 20 mg , however last fill date was 02/07/24. left on med rec because patient states she just took it yesterday.
[2024-10-31] MEDS: predniSONE 20 MG TABLET 40 MG PO (08:18)
[2024-10-31 08:32] LABS: Anion Gap 13 (12-20); Blood Urea Nitrogen 18 mg/dL (9-16); Calcium 8.2 mg/dL (8.4-10.2); Carbon Dioxide 26 mmol/L (22-29); Chloride 103 mmol/L (96-108); Creatinine Clr Calc Pharmacy 60.3; Estimated Glomerular Filt Rate > 60; Glucose Random 212 mg/dL (60-115); Potassium 3.4 mmol/L (3.3-5.1); Sodium 139 mmol/L (135-145)
--- NOTE | 2024-10-31 11:00 | CA_ITS ---
Transthoracic Echocardiogram Patient (Last, First, Middle): Julia Monzon L Gender: Female Date of : 1955 Age: 69 Procedure Date: 10/31/2024 Procedure Type: Transthoracic Echocardiogram Location: ER Height: 162.56 cm Weight: 58.97 kg BSA: 1.63 m2 Heart Rate: bpm BP: 106 / 61 mmHg Electrical Engineering Draftsperson: TO Referring MD: Joseph Fink DO Airport Traffic Controller: Yosi Prakash MD Symptoms: Elevated troponins Study Quality: Fair/Contrast ECG Rhythm: Sinus Conclusions: - 1. Normal LV ejection fraction of 60 65% 2. Calcific aortic and mitral valve changes with normal cardiac valvular Dopplers 3. Mildly dilated ascending aorta at 4 cm 4. Upper limits of normal RV systolic pressure with significantly elevated right atrial pressures 5. No gross pericardial effusion Findings Procedure Information Contrast agent, definity, is being given per protocol without apparent complications. Left Ventricle Normal left ventricular size, thickness, and systolic function. The visually estimated ejection fraction is between 60-65%. Spectral Doppler is indicative of an impaired relaxation filling pattern. E/E prime ratio is between 8 and 15 consistent with indeterminate filling pressures. Right Ventricle Normal right ventricular cavity size and systolic function. Atria Both atria are normal in size. There is no evidence of interatrial shunt. Aortic Valve There is mild calcification of the aortic valve. There is no aortic valve stenosis. There is no aortic valve regurgitation. Mitral Valve Normal mitral valve structure and function. There is mild mitral annular calcification. There is no mitral valve regurgitation. There is no mitral valve stenosis. Pulmonic Valve The pulmonic valve was not well visualized. Tricuspid Valve Likely normal tricuspid valve structure and function. There is mild tricuspid valve regurgitation. Significantly elevated right atrial pressure. There is no evidence of pulmonary hypertension. Great Vessels The pulmonary artery was not well visualized. There is mild dilatation of the ascending aorta measuring 4.00 cm. Venous The inferior vena cava is moderately dilated and does not collapse with inspiration. Pericardium/Pleural There is no evidence of pericardial effusion. Measurements 2D Linear Measurements IVSd: 1.00 0.6-0.9/0.6-1.0 cm LVIDd: 3.90 3.9-5.3/4.2-5.9 cm LVIDd Index: 2.39 2.4-3.2/2.2-3.1 cm/m2 LVIDs: 2.31 2.0-3.6 cm LVPWd: 0.86 0.7-1.1 cm LA Diam: 3.10 2.7-3.8/3.0-4.0 cm LAIDs Index: 1.90 1.5-2.3 cm/m2 LV Mass: 136.33 67-162/88-224 g LV Mass Index: 83.64 43-95/49-115 g/m2 LVOT Diam: 2.10 3.0+(-)1.3 cm 2D Systolic Function EF 4C: 62.50 >55% EF 2C: 63.70 >55% EF BiP: 62.20 >55% Mitral Valve MV Pk E: 0.72 MV PK A: 0.59 MV Decel Time: 223.00 E/A: 1.20 E'Lateral: 6.31 E'Medial: 6.31 E/E' Med: 11.30 E/E' Lat: 11.30 PHT: 65.00 MVA PHT: 3.38 Decel Dubois: 3.21 Aortic Valve AoV Pk Fidel: 1.48 AoV Mn Fidel: 0.93 AoV VTI: 0.25 AoV Pk Grad: 9.00 Aov Mn Grad: 4.00 EVETTE Cont.VTI: 3.40 LVOT LVOT Pk Fidel: 1.23 LVOT Mn Fidel: 0.71 LVOT VTI: 0.24 LVOT Pk Grad: 6.00 LVOT Mn Grad: 2.00 LVOT Diam: 2.10 LVOT Area: 3.46 Diastolic Function MV Pk E: 0.72 MV Pk A: 0.59 E/A: 1.20 E'Medial: 6.31 E/E' Med: 11.30 E' Laterial: 6.31 E/E' Lat: 11.30 Right Ventricle TAPSE (mm): 25.20 TVS' Fidel: 14.50 Tricuspid Valve TR Pk Fidel: 2.51 TR Pk Grad: 25.00 RA Press: 15.00 RVSP: 40.00 Great Vessels Aorta Sinus of Valsalva: 3.78 2.0-3.5 cm Ao Asc: 4.00 2.1-3.4 cm Updated in Other Vendor System with Status of Final Yosi Prakash MD electronically signed on 11/01/2024 7:39:28 AM with status of Final
--- NOTE | 2024-10-31 13:04 | P.PNIM_ITS ---
Subjective Subjective Date of Service: 10/31/24 Interval History: No acute events overnight. Breathing unchanged since admission Review of Systems Denies chest pain Admits shortness of breath with minimal movement that has not changed since admission Denies nausea vomiting diarrhea Denies fever chills Physical Exam 2 Vital Signs: Vital Signs: Last Vital Signs Temp 97.3 F 10/30/24 18:31 Pulse 71 10/31/24 10:58 Resp 18 10/31/24 10:58 BP 106/61 10/31/24 07:11 Pulse Ox 100 10/31/24 07:11 O2 Del Method Nasal Cannula 10/31/24 07:11 O2 Flow Rate 3 10/31/24 07:11 BMI result Body Mass Index 22.3 Const: Other: Awake alert resting comfortably in bed able to speak in full sentences Resp: Other: Diminished at bases with scattered expiratory wheezes throughout Cardio: Other: No S4; positive S1-S2; no S3 murmurs rubs or gallops GI: Other: Soft nontender nondistended normoactive bowel sounds Extrem: Other: No edema bilaterally Objective Data Active Medications Acetaminophen (Acetaminophen 325 Mg Tablet) 650 mg PO Q6H PRN PRN Reason: Pain, Mild 1-3,fever,headache Albuterol/Ipratropium (Albuterol/Iprat 2.5/0.5mg 3 Ml Ampul.Neb) 3 ml INHALE Q4H PRN PRN Reason: Shortness of Breath/Wheezing Albuterol/Ipratropium (Albuterol/Iprat 2.5/0.5mg 3 Ml Ampul.Neb) 3 ml INHALE RQ4H WHILE AWAKE [facility] Last Admin: 10/31/24 10:56 Dose: 3 ml Documented By: LAMONT Benzonatate (Benzonatate 100 Mg Capsule) 100 mg PO TID PRN PRN Reason: Cough Calcium Carbonate (Calcium Carbonate 750 Mg Tab.Chew) 750 mg PO Q4H PRN PRN Reason: Heartburn Potassium Chloride/Dextrose/Sod Cl (Kcl 10 Meq In 5% Dex/0.45% Sod) 10 meq in 1,000 mls @ 500 mls/hr IVCONT .Q2H [facility] Last Admin: 10/31/24 12:18 Dose: 500 mls/hr Documented By: SRIKANTH Doxycycline Hyclate 100 mg/ (Sodium Chloride) 250 mls @ 166.67 mls/hr IV Q12H [facility] Last Infusion: 10/31/24 04:48 Dose: Infused Documented By: FAUSTINA Magnesium Hydroxide (Milk Of Magnesia 30 Ml Oral.Susp) 30 ml PO DAILY PRN PRN Reason: Constipation Melatonin (Melatonin 3 Mg Tablet) 6 mg PO BEDTIME PRN PRN Reason: Insomnia Last Admin: 10/30/24 23:31 Dose: 6 mg Documented By: JOSE A Methylprednisolone Sodium Succinate (Methylprednisolone Sod Succ 125 Mg Vial) 60 mg IVPUSH Q6H RIANA Ondansetron HCl (Ondansetron Hcl 4 Mg/2 Ml Vial) 4 mg IVPUSH Q8H PRN PRN Reason: Nausea and Vomiting Sodium Chloride (0.9 % Sodium Chloride Flush 3 Ml Syringe) 3 ml IVFLUSH QSHIFT RIANA Last Admin: 10/31/24 08:15 Dose: Not Given Documented By: SRIKANHT Non-Admin Reason: IV Running Labs 10/31/24 06:12 10/31/24 06:12 Labs: Laboratory Results - last 24 hr 10/30/24 10/30/24 10/31/24 19:38 19:43 02:25 MCV 87.8 MCH 30.5 MCHC 34.7 RDW 13.0 Plt Count 187 MPV 10.7 Immature Gran % (Auto) 0.3 Neut % (Auto) 68.2 Lymph % (Auto) 20.5 [place] % (Auto) 10.2 Eos % (Auto) 0.3 Baso % (Auto) 0.5 Lymph # (Auto) 1.2 [place] # (Auto) 0.6 Eos # (Auto) 0.0 Baso # (Auto) 0.0 Abs Immat Gran (auto) 0.02 Absolute Neuts (auto) 4.1 Absolute Nucleated RBC 0.000 Nucleated RBC % (auto) 0.0 VBG pH 7.49 H VBG pCO2 46 VBG pO2 56 VBG HCO3 35 H VBG O2 Saturation 84.0 VBG Base Excess 10.4 Anion Gap 17 Estim Creat Clear Calc 45.4 Estimated GFR 54 Random Glucose 144 H Calcium 9.5 Magnesium 1.6 Total Bilirubin 0.8 Direct Bilirubin 0.3 AST 21 ALT 12 Alkaline Phosphatase 53 Troponin I High Sens 6.4 Total Protein 6.3 L Albumin 4.1 Lipase 19 Urine Color Dark Yellow Urine Appearance Clear Urine pH 5.0 Ur Specific [place] >= 1.030 H Urine Protein Trace Urine Glucose (UA) 500 H Urine Ketones Trace Urine Blood Negative Urine Nitrite Negative Ur Leukocyte Esterase Negative Influenza Type A (PCR) NEGATIVE Influenza Type B (PCR) NEGATIVE RSV RNA Qual (PCR) NEGATIVE SARS-CoV-2 RNA (RT-PCR) NEGATIVE 10/31/24 06:12 MCV 90.0 MCH 30.5 MCHC 33.9 RDW 13.0 Plt Count 150 L MPV 11.1 Immature Gran % (Auto) 0.3 Neut % (Auto) 85.1 H Lymph % (Auto) 9.2 L [place] % (Auto) 5.4 Eos % (Auto) 0.0 Baso % (Auto) 0.0 Lymph # (Auto) 0.3 L [place] # (Auto) 0.2 Eos # (Auto) 0.0 Baso # (Auto) 0.0 Abs Immat Gran (auto) 0.01 Absolute Neuts (auto) 2.7 Absolute Nucleated RBC 0.000 Nucleated RBC % (auto) 0.0 VBG pH VBG pCO2 VBG pO2 VBG HCO3 VBG O2 Saturation VBG Base Excess Anion Gap 13 Estim Creat Clear Calc 60.3 Estimated GFR > 60 Random Glucose 212 H Calcium 8.2 L D Magnesium Total Bilirubin Direct Bilirubin AST ALT Alkaline Phosphatase Troponin I High Sens Total Protein Albumin Lipase Urine Color Urine Appearance Urine pH Ur Specific [place] Urine Protein Urine Glucose (UA) Urine Ketones Urine Blood Urine Nitrite Ur Leukocyte Esterase Influenza Type A (PCR) Influenza Type B (PCR) RSV RNA Qual (PCR) SARS-CoV-2 RNA (RT-PCR) Assessment and Plan (1) Acute hypoxemic respiratory failure: Status: Acute (2) COPD exacerbation: Status: Acute Plan This is a 69-year-old female with pertinent history of COPD not on home oxygen, tobacco use disorder, mixed hyperlipidemia who presents to the emergency department for evaluation of dyspnea. Workup consistent with COPD exacerbation secondary to pneumonitis 1.Acute hypoxemic respiratory failure due to acute exacerbation of COPD -DuoNebs q.4 hours while awake -doxycycline (2)... Switch to Zosyn secondary to posible colitis -Solu-Medrol 60 mg IV q.6 hours p.r.n. -titrate O2 to maintain sats greater than equal 92% 2.Colitis with ?Hematochezia -CT with nonspecific chnages -DC doxy in favor of Zosyn 3.Hypokalemia -repleted -follow renals/divalents Mechanical Full code Requires ongoing hospitalization to treat COPD exacerbation with IV steroids and possible colitis with IV antibiotics Quality Stroke Does the patient have a stroke diagnosis?: No VTE Prior VTE?: No VTE Risk Level:: Medical - moderate - high VTE Device Contraindication: N/A - Device Ordered VTE Drug Contraindication: Treatment Not Indicated
[2024-10-31] MEDS: Atorvastatin Calcium 10 MG TABLET PO (14:20)
--- NOTE | 2024-10-31 14:49 | MHC.CM.PN ---
PT REPORTS SHE LIVES ALONE, BUT HER SON, MARIALUISA, LIVES UPSTAIRS SHE REPORTS BEING INDEPENDENT AND HAS NO SERVICES SHE SAYS SHE HAS A WALKER BUT DOES NOT USE IT SHE COMPLETED A NEW HCP TODAY NAMING HER SONS, MELA AND MARIALUISA, HER AGENTS PCP: CARMEN ADKINS IMM DELIVERED DCP TBD: SONS ARE CONCERNED ABOUT PTS SAFETY AT HOME HOWEVER SHE TYPICALLY REFUSES SERVICES THEY REPORT THEY WOULD LIKE HOME CARE REFERRALS ANYWAY HOME WITH [facility] AND [facility] REFERRAL VS STR FAMILY TO TRANSPORT IF PT GOES DIRECTLY HOME
[2024-10-31] MEDS: 0.9 % Sodium Chloride Flush 3 ML SYRINGE IVFLUSH ×2 (18:56→20:14)
[2024-10-31] MEDS: ondansetron HCL 4 MG/2 ML VIAL IVPUSH (20:14)
[2024-11-01] VITALS (11 sets, daily range): BP systolic 115–132; BP diastolic 55–63; PULSE 78–104; RESP 15–18; TEMP 36.2–38.2; O2SAT 90–95
[2024-11-01 06:36] LABS: MANUAL DIFF FLAG NO
[2024-11-01 06:47] LABS: Basophils Percent Auto 0.1 % (0-2); Hematocrit 38.7 % (37.0-47.0); Hemoglobin 12.9 g/dl (12.0-16.0); Imm Gran Abs Auto 0.04 X10*3/uL (0.00-0.03); Imm Gran Pct Auto 0.5 % (0.0-0.4); Lymphocytes Absolute Auto 0.3 X10*3/uL (1.2-4.9); Lymphocytes Percent Auto 3.9 % (20-40); Mean Corpuscular HGB Conc 33.3 g/dl (31.0-35.0); Mean Corpuscular Hemoglobin 30.6 pg (27.0-33.0); Mean Corpuscular Volume 91.7 fL (80.0-98.0); Mean Platelet Volume 11.7 fL (9.4-12.3); Monocytes Absolute Auto 0.5 X10*3/uL (0.1-1.2); Monocytes Percent Auto 5.6 % (2-11); Neutrophils Absolute Auto 7.7 x10*3/uL (2.0-8.3); Neutrophils Percent Auto 89.9 % (45-73); Platelet Count 156 X10*3/uL (160-400); Red Blood Count 4.22 X10*6/uL (4.20-5.50); Red Cell Distribution Width 13.1 % (11.0-16.0); White Blood Count 8.6 X10*3/uL (4.8-10.8)
[2024-11-01 06:55] LABS: Alanine Aminotransferase 23 U/L (0-31); Albumin Level 3.2 g/dL (3.5-5.0); Alkaline Phosphatase 59 U/L (39-117); Anion Gap 10 (12-20); Aspartate Amino Transferase 24 U/L (5-31); Bilirubin Total 0.2 mg/dL (0.0-1.0); Blood Urea Nitrogen 17 mg/dL (9-16); Calcium 8.4 mg/dL (8.4-10.2); Carbon Dioxide 28 mmol/L (22-29); Chloride 106 mmol/L (96-108); Creatinine Clr Calc Pharmacy 55.2; Estimated Glomerular Filt Rate > 60; Glucose Fasting 140 mg/dL (60-99); Potassium 3.4 mmol/L (3.3-5.1); Sodium 141 mmol/L (135-145); Total Protein 5.1 g/dL (6.5-8.0)
--- NOTE | 2024-11-01 07:35 | HE.PHANOTE ---
iv to po DOXYCYCLINE CHANGED FROM IV TO PO PER P&T
[2024-11-01] MEDS: Albuterol/Iprat 2.5/0.5MG 3 ML AMPUL.NEB INHALE ×4 (07:45→20:19)
[2024-11-01] MEDS: Atorvastatin Calcium 10 MG TABLET PO (08:26)
[2024-11-01] MEDS: Acetaminophen 325 MG TABLET 650 MG PO ×2 (08:26→14:47)
[2024-11-01] MEDS: 0.9 % Sodium Chloride Flush 3 ML SYRINGE IVFLUSH ×2 (08:33→14:10)
[2024-11-01] MEDS: Doxycycline Monohydrate 100 MG CAPSULE PO (12:43)
--- NOTE | 2024-11-01 13:21 | P.PNIM_ITS ---
Subjective Subjective Date of Service: 11/01/24 Interval History: Notes improvement overnight. Sats stable Review of Systems Denies chest pain Admits shortness of breath that has improved Denies nausea vomiting diarrhea Denies fever chills Physical Exam 2 Vital Signs: Vital Signs: Last Vital Signs Temp 97.1 F 11/01/24 10:44 Pulse 86 11/01/24 12:00 Resp 18 11/01/24 12:00 BP 116/58 L 11/01/24 08:00 Pulse Ox 93 11/01/24 10:44 O2 Del Method Nasal Cannula 11/01/24 10:44 O2 Flow Rate 2 11/01/24 10:44 BMI result Body Mass Index 24.4 Const: Other: Awake alert resting comfortably in bed able to speak in full sentences Resp: Other: Diminished at bases with scattered expiratory wheezes throughout Cardio: Other: No S4; positive S1-S2; no S3 murmurs rubs or gallops GI: Other: Soft nontender nondistended normoactive bowel sounds Extrem: Other: No edema bilaterally Objective Data Active Medications Acetaminophen (Acetaminophen 325 Mg Tablet) 650 mg PO Q6H PRN PRN Reason: Pain, Mild 1-3,fever,headache Last Admin: 11/01/24 08:26 Dose: 650 mg Documented By: DENISE Albuterol/Ipratropium (Albuterol/Iprat 2.5/0.5mg 3 Ml Ampul.Neb) 3 ml INHALE Q4H PRN PRN Reason: Shortness of Breath/Wheezing Albuterol/Ipratropium (Albuterol/Iprat 2.5/0.5mg 3 Ml Ampul.Neb) 3 ml INHALE RQ4H WHILE AWAKE [facility] Last Admin: 11/01/24 11:57 Dose: 3 ml Documented By: LAMONT Atorvastatin Calcium (Atorvastatin Calcium 10 Mg Tablet) 10 mg PO DAILY [facility] Last Admin: 11/01/24 08:26 Dose: 10 mg Documented By: DENISE Benzonatate (Benzonatate 100 Mg Capsule) 100 mg PO TID PRN PRN Reason: Cough Calcium Carbonate (Calcium Carbonate 750 Mg Tab.Chew) 750 mg PO Q4H PRN PRN Reason: Heartburn Doxycycline Monohydrate (Doxycycline Monohydrate 100 Mg Capsule) 100 mg PO Q12H [facility] Last Admin: 11/01/24 12:43 Dose: 100 mg Documented By: DENISE Fluticasone/Umeclidinium/Vilanterol (Fluticasone/Umeclidinium/Vilanterol 200/62.5/ Blst.W.Dev) 1 puff INHALE RDAILY [facility] Last Admin: 11/01/24 07:46 Dose: Not Given Documented By: LAMONT Non-Admin Reason: Med Not Available Magnesium Hydroxide (Milk Of Magnesia 30 Ml Oral.Susp) 30 ml PO DAILY PRN PRN Reason: Constipation Melatonin (Melatonin 3 Mg Tablet) 6 mg PO BEDTIME PRN PRN Reason: Insomnia Last Admin: 10/30/24 23:31 Dose: 6 mg Documented By: JOSE A Methylprednisolone Sodium Succinate (Methylprednisolone Sod Succ 125 Mg Vial) 60 mg IVPUSH Q6H [facility] Last Admin: 11/01/24 08:27 Dose: 60 mg Ondansetron HCl (Ondansetron Hcl 4 Mg/2 Ml Vial) 4 mg IVPUSH Q8H PRN PRN Reason: Nausea and Vomiting Last Admin: 10/31/24 20:14 Dose: 4 mg Documented By: AQUILINO Sodium Chloride (0.9 % Sodium Chloride Flush 3 Ml Syringe) 3 ml IVFLUSH QSHIFT [facility] Last Admin: 11/01/24 08:33 Dose: 3 ml Documented By: DENISE Labs 11/01/24 05:29 11/01/24 05:29 Labs: Laboratory Results - last 24 hr 11/01/24 05:29 MCV 91.7 MCH 30.6 MCHC 33.3 RDW 13.1 Plt Count 156 L MPV 11.7 Immature Gran % (Auto) 0.5 H Neut % (Auto) 89.9 H Lymph % (Auto) 3.9 L [place] % (Auto) 5.6 Eos % (Auto) 0.0 Baso % (Auto) 0.1 Lymph # (Auto) 0.3 L [place] # (Auto) 0.5 Eos # (Auto) 0.0 Baso # (Auto) 0.0 Abs Immat Gran (auto) 0.04 H Absolute Neuts (auto) 7.7 Absolute Nucleated RBC 0.000 Nucleated RBC % (auto) 0.0 Anion Gap 10 L Estim Creat Clear Calc 55.2 Estimated GFR > 60 Fasting Glucose 140 H Calcium 8.4 Total Bilirubin 0.2 AST 24 ALT 23 Alkaline Phosphatase 59 Total Protein 5.1 L Albumin 3.2 L Assessment and Plan (1) Acute hypoxemic respiratory failure: Status: Acute (2) COPD exacerbation: Status: Acute (3) Colitis: Status: Acute Plan This is a 69-year-old female with pertinent history of COPD not on home oxygen, tobacco use disorder, mixed hyperlipidemia who presents to the emergency department for evaluation of dyspnea. Workup consistent with COPD exacerbation secondary to pneumonitis 1.Acute hypoxemic respiratory failure due to acute exacerbation of COPD -DuoNebs q.4 hours while awake -Solu-Medrol 60 mg IV q.6 hours p.r.n. -titrate O2 to maintain sats greater than equal 92% 2.Colitis with ?Hematochezia -CT with nonspecific chnages -Zosyn(2) -follow CBC 3.Hypokalemia -repleted -follow renals/divalents Mechanical Full code Requires ongoing hospitalization to treat COPD exacerbation with IV steroids and possible colitis with IV antibiotics Quality Stroke Does the patient have a stroke diagnosis?: No VTE Prior VTE?: No VTE Risk Level:: Medical - moderate - high VTE Device Contraindication: N/A - Device Ordered VTE Drug Contraindication: Treatment Not Indicated
[2024-11-01] MEDS: hydrOXYzine HCL 50 MG TABLET PO (20:17)
[2024-11-02] MEDS: Doxycycline Monohydrate 100 MG CAPSULE PO (00:17)
[2024-11-02] MEDS: 0.9 % Sodium Chloride Flush 3 ML SYRINGE IVFLUSH ×3 (00:18→16:56)
[2024-11-02 03:42] VITALS: BP 122/57; PULSE 85; RESP 18; TEMP 36.5; O2SAT 94
[2024-11-02 05:51] LABS: Basophils Percent Auto 0.2 % (0-2); Hematocrit 39.1 % (37.0-47.0); Hemoglobin 13.1 g/dl (12.0-16.0); Imm Gran Abs Auto 0.06 X10*3/uL (0.00-0.03); Imm Gran Pct Auto 0.9 % (0.0-0.4); Lymphocytes Absolute Auto 0.4 X10*3/uL (1.2-4.9); Lymphocytes Percent Auto 5.6 % (20-40); MANUAL DIFF FLAG SCAN; Mean Corpuscular HGB Conc 33.5 g/dl (31.0-35.0); Mean Corpuscular Hemoglobin 30.5 pg (27.0-33.0); Mean Corpuscular Volume 91.1 fL (80.0-98.0); Mean Platelet Volume 12.4 fL (9.4-12.3); Monocytes Absolute Auto 0.4 X10*3/uL (0.1-1.2); Monocytes Percent Auto 5.3 % (2-11); Neutrophils Absolute Auto 5.8 x10*3/uL (2.0-8.3); PLT CLUMP 1; Red Blood Count 4.29 X10*6/uL (4.20-5.50); Red Cell Distribution Width 13.3 % (11.0-16.0); SCAN SMEAR FLAG 1
[2024-11-02 06:06] LABS: Alanine Aminotransferase 24 U/L (0-31); Albumin Level 2.9 g/dL (3.5-5.0); Alkaline Phosphatase 47 U/L (39-117); Anion Gap 13 (12-20); Aspartate Amino Transferase 29 U/L (5-31); Bilirubin Total 0.2 mg/dL (0.0-1.0); Blood Urea Nitrogen 19 mg/dL (9-16); Calcium 8.4 mg/dL (8.4-10.2); Carbon Dioxide 24 mmol/L (22-29); Chloride 106 mmol/L (96-108); Creatinine Clr Calc Pharmacy 69.4; Estimated Glomerular Filt Rate > 60; Glucose Fasting 131 mg/dL (60-99); Potassium 4.1 mmol/L (3.3-5.1); Sodium 139 mmol/L (135-145); Total Protein 5.4 g/dL (6.5-8.0)
[2024-11-02 06:16] LABS: Platelet Count 105 X10*3/uL (160-400); White Blood Count 6.6 X10*3/uL (4.8-10.8)
[2024-11-02 06:17] LABS: SLIDE REVIEW VERIFIED
[2024-11-02 07:24] VITALS: BP 124/61; PULSE 73; RESP 16; TEMP 36.5; O2SAT 94
[2024-11-02] MEDS: Atorvastatin Calcium 10 MG TABLET PO (07:41)
[2024-11-02] MEDS: Albuterol/Iprat 2.5/0.5MG 3 ML AMPUL.NEB INHALE (08:52)
[2024-11-02 08:54] VITALS: PULSE 101; RESP 20; O2SAT 93
--- NOTE | 2024-11-02 09:48 | P.CDIM_ITS ---
PROVIDER RESPONSE TEXT: To clarify, the appropriate diagnosis supported by the clinical indicators: Aspiration Pneumonitis: food QUERY TEXT: PHYSICIAN'S DOCUMENTATION REQUEST Date of Query: 11/02/2024 08:03 AM EDT Patient Name: Julia Monzon Admit Date: 10/31/2024 Dear Joseph Fink DO, A review of the medical record indicates additional documentation may be needed. Please review below and update the documentation accordingly. Clinical Indicators: Progress notes 11/01/24 - Workup consistent with COPD exacerbation secondary to pneumonitis. Associated cough with clear sputum production and wheezing. Patient wheezing despite multiple DuoNeb treatments and steroids. Found to be hypoxic and placed on supplemental oxygen. Doxycycline Based on the above, could you clarify in the Progress Notes further specificity regarding the most li mikey type of pneumonitis you suspect you are treating: Aspiration Pneumonitis Please indicate substance such as food or vomitus, oils, or other solids or liquids, chemical, chroni c etc. Other specifics to the documented Pneumonitis Other (explain) Clinically unable to determine (explain) Thank you, Alexa Zuñiga, CCS, CDIS Use of terms such as suspected, likely, concern for, or probable (associated with a specific diagnosi s that is being evaluated, monitored, or treated as if it exists) are acceptable and can be coded in the inpatient se tting, when documented at the time of discharge. Please use your independent medical judgment in providing your response. THIS QUERY IS PART OF THE PERMANENT MEDICAL RECORD
[2024-11-02] MEDS: Piperacillin Sodium/Tazobactam 3.375 GM in 0.9 % Sodium Chloride 50 ML IV ×3 (11:25→23:21)
--- NOTE | 2024-11-02 14:36 | HO.PM.IMPN ---
Subjective Subjective Date of Service: 11/02/24 Interval History: Mild shortness of breath this a.m.. Afebrile Review of Systems Denies chest pain Admits shortness of breath that has improved Denies nausea vomiting diarrhea Denies fever chills Physical Exam Vital Signs: Vital Signs: Last Vital Signs Temp 97.7 F 11/02/24 07:24 Pulse 101 H 11/02/24 08:54 Resp 20 11/02/24 08:54 BP 124/61 11/02/24 07:24 Pulse Ox 94 11/02/24 07:24 O2 Del Method Nasal Cannula 11/02/24 07:24 O2 Flow Rate 1 11/02/24 07:24 BMI result Body Mass Index 24.4 Const: Other: Awake alert resting comfortably in bed able to speak in full sentences Resp: Other: Diminished at bases with scattered expiratory wheezes throughout Cardio: Other: No S4; positive S1-S2; no S3 murmurs rubs or gallops GI: Other: Soft nontender nondistended normoactive bowel sounds Extrem: Other: No edema bilaterally Objective Data Active Medications Acetaminophen (Acetaminophen 325 Mg Tablet) 650 mg PO Q6H PRN PRN Reason: Pain, Mild 1-3,fever,headache Last Admin: 11/01/24 14:47 Dose: 650 mg Documented By: TRISTON Albuterol/Ipratropium (Albuterol/Iprat 2.5/0.5mg 3 Ml Ampul.Neb) 3 ml INHALE Q4H PRN PRN Reason: Shortness of Breath/Wheezing Albuterol/Ipratropium (Albuterol/Iprat 2.5/0.5mg 3 Ml Ampul.Neb) 3 ml INHALE RQ4H WHILE AWAKE [facility] Last Admin: 11/02/24 11:25 Dose: Not Given Documented By: SHABNAM Non-Admin Reason: Patient Refused Atorvastatin Calcium (Atorvastatin Calcium 10 Mg Tablet) 10 mg PO DAILY [facility] Last Admin: 11/02/24 07:41 Dose: 10 mg Documented By: MARIANN Benzonatate (Benzonatate 100 Mg Capsule) 100 mg PO TID PRN PRN Reason: Cough Calcium Carbonate (Calcium Carbonate 750 Mg Tab.Chew) 750 mg PO Q4H PRN PRN Reason: Heartburn Fluticasone/Umeclidinium/Vilanterol (Fluticasone/Umeclidinium/Vilanterol 200/62.5/25 Blst.W.Dev) 1 puff INHALE RDAILY [facility] Last Admin: 11/02/24 11:26 Dose: Not Given Documented By: SHABNAM Non-Admin Reason: Patient Refused Piperacillin Sod/Tazobactam (Sod 3.375 gm/ Sodium Chloride) 50 mls @ 100 mls/hr IV Q6H [facility] Last Infusion: 11/02/24 11:55 Dose: Infused Documented By: MARIANN Magnesium Hydroxide (Milk Of Magnesia 30 Ml Oral.Susp) 30 ml PO DAILY PRN PRN Reason: Constipation Melatonin (Melatonin 3 Mg Tablet) 6 mg PO BEDTIME PRN PRN Reason: Insomnia Last Admin: 10/30/24 23:31 Dose: 6 mg Documented By: JOSE A Methylprednisolone Sodium Succinate (Methylprednisolone Sod Succ 125 Mg Vial) 60 mg IVPUSH Q6H [facility] Last Admin: 11/02/24 12:29 Dose: 60 mg Documented By: MARIANN Ondansetron HCl (Ondansetron Hcl 4 Mg/2 Ml Vial) 4 mg IVPUSH Q8H PRN PRN Reason: Nausea and Vomiting Last Admin: 10/31/24 20:14 Dose: 4 mg Documented By: AQUILINO Sodium Chloride (0.9 % Sodium Chloride Flush 3 Ml Syringe) 3 ml IVFLUSH QSHIFT [facility] Last Admin: 11/02/24 07:41 Dose: 3 ml Documented By: MARIANN Labs 11/02/24 05:16 11/02/24 05:16 Labs: Laboratory Results - last 24 hr 11/02/24 05:16 MCV 91.1 MCH 30.5 MCHC 33.5 RDW 13.3 Plt Count 105 L D MPV 12.4 H Immature Gran % (Auto) 0.9 H Neut % (Auto) 88.0 H Lymph % (Auto) 5.6 L [place] % (Auto) 5.3 Eos % (Auto) 0.0 Baso % (Auto) 0.2 Lymph # (Auto) 0.4 L [place] # (Auto) 0.4 Eos # (Auto) 0.0 Baso # (Auto) 0.0 Abs Immat Gran (auto) 0.06 H Absolute Neuts (auto) 5.8 Absolute Nucleated RBC 0.000 Nucleated RBC % (auto) 0.0 Smear Tech's Comments VERIFIED Anion Gap 13 Estim Creat Clear Calc 69.4 Estimated GFR > 60 Fasting Glucose 131 H Calcium 8.4 Total Bilirubin 0.2 AST 29 ALT 24 Alkaline Phosphatase 47 Total Protein 5.4 L Albumin 2.9 L Assessment and Plan (1) Acute hypoxemic respiratory failure: Status: Acute (2) Pulmonary edema: Status: Acute (3) COPD exacerbation: Status: Acute Plan This is a 69-year-old female with pertinent history of COPD not on home oxygen, tobacco use disorder, mixed hyperlipidemia who presents to the emergency department for evaluation of dyspnea. Workup consistent with COPD exacerbation secondary to pneumonitis 1. Mild pulmonary congestion by x-ray -Lasix 40 mg IV x1 -2D echo in a.m. -check troponin 2..Acute hypoxemic respiratory failure due to acute exacerbation of COPD.. -DuoNebs q.4 hours while awake -Solu-Medrol 60 mg IV q.6 hours p.r.n. -titrate O2 to maintain sats greater than equal 92% 3.Colitis with ?Hematochezia -CT with nonspecific chnages -Zosyn(3) -follow CBC 4.Hypokalemia -repleted -follow renals/divalents Mechanical Full code Requires ongoing hospitalization to treat COPD exacerbation with IV steroids and possible colitis with IV antibiotics Quality Stroke Does the patient have a stroke diagnosis?: No VTE Prior VTE?: No VTE Risk Level:: Medical - moderate - high VTE Device Contraindication: N/A - Device Ordered VTE Drug Contraindication: Treatment Not Indicated
[2024-11-02 15:07] VITALS: BP 119/58; PULSE 83; RESP 18; TEMP 36; O2SAT 92
[2024-11-02 15:43] LABS: Troponin-I High Sensitivity 6.6 ng/L (<3.5-17.0)
[2024-11-02 15:46] LABS: B Type Natriuretic Peptide 91 pg/mL (<100)
[2024-11-02] MEDS: ondansetron HCL 4 MG/2 ML VIAL IVPUSH (18:32)
[2024-11-02 19:27] VITALS: BP 158/74; PULSE 94; RESP 15; TEMP 36.1; O2SAT 95
[2024-11-02] MEDS: Melatonin 3 MG TABLET 6 MG PO (23:25)
[2024-11-03] VITALS (7 sets, daily range): BP systolic 117–155; BP diastolic 55–70; PULSE 79–101; RESP 16–24; TEMP 36.5–37.4; O2SAT 91–94
--- NOTE | 2024-11-03 02:54 | PC.NURSE ---
Pt refused to take her RIANA Solu-Medrol at 00:00, pt educated on the importance of the medication. Pt started yelling at this RN upon teaching, refusing to take the medication. Pt stated she wants to be left alone, why you are waking me up. call center manager [facility] notified of the situation and the pt's refusal. Will continue to monitor.
[2024-11-03] MEDS: Piperacillin Sodium/Tazobactam 3.375 GM in 0.9 % Sodium Chloride 50 ML IV ×4 (05:12→21:36)
[2024-11-03 06:41] LABS: MANUAL DIFF FLAG NO
[2024-11-03 06:45] LABS: Basophils Percent Auto 0.3 % (0-2); Hematocrit 41.1 % (37.0-47.0); Hemoglobin 13.2 g/dl (12.0-16.0); Imm Gran Pct Auto 1.3 % (0.0-0.4); Lymphocytes Absolute Auto 0.9 X10*3/uL (1.2-4.9); Mean Corpuscular HGB Conc 32.1 g/dl (31.0-35.0); Mean Corpuscular Hemoglobin 30.3 pg (27.0-33.0); Mean Corpuscular Volume 94.5 fL (80.0-98.0); Mean Platelet Volume 11.1 fL (9.4-12.3); Monocytes Percent Auto 12.6 % (2-11); Neutrophils Absolute Auto 5.9 x10*3/uL (2.0-8.3); Neutrophils Percent Auto 74.8 % (45-73); Platelet Count 142 X10*3/uL (160-400); Red Blood Count 4.35 X10*6/uL (4.20-5.50); Red Cell Distribution Width 13.2 % (11.0-16.0); White Blood Count 7.8 X10*3/uL (4.8-10.8)
[2024-11-03 07:10] LABS: Alanine Aminotransferase 34 U/L (0-31); Alkaline Phosphatase 57 U/L (39-117); Anion Gap 11 (12-20); Aspartate Amino Transferase 30 U/L (5-31); Bilirubin Total 0.3 mg/dL (0.0-1.0); Blood Urea Nitrogen 28 mg/dL (9-16); Calcium 8.2 mg/dL (8.4-10.2); Carbon Dioxide 29 mmol/L (22-29); Chloride 106 mmol/L (96-108); Creatinine Clr Calc Pharmacy 58.7; Estimated Glomerular Filt Rate > 60; Glucose Fasting 98 mg/dL (60-99); Potassium 3.9 mmol/L (3.3-5.1); Sodium 142 mmol/L (135-145); Total Protein 4.9 g/dL (6.5-8.0)
[2024-11-03] MEDS: Albuterol/Iprat 2.5/0.5MG 3 ML AMPUL.NEB INHALE ×3 (07:38→15:29)
[2024-11-03] MEDS: Fluticasone/Umeclidinium/Vilanterol 200/62.5/25 BLST.W.DEV 1 PUFF INHALE (07:39)
[2024-11-03] MEDS: Atorvastatin Calcium 10 MG TABLET PO (07:58)
[2024-11-03] MEDS: 0.9 % Sodium Chloride Flush 3 ML SYRINGE IVFLUSH ×3 (07:58→21:36)
[2024-11-03] MEDS: methylPREDNISolone Sod Succ 125 MG/2 ML VIAL 60 MG IVPUSH ×3 (10:50→21:31)
--- NOTE | 2024-11-03 15:09 | HO.PM.IMPN ---
Subjective Subjective Date of Service: 11/03/24 Interval History: More alert; cooperative today Review of Systems Denies chest pain Admits shortness of breath that has improved Denies nausea vomiting diarrhea Denies fever chills Physical Exam Vital Signs: Vital Signs: Last Vital Signs Temp 97.7 F 11/03/24 07:17 Pulse 93 11/03/24 11:27 Resp 22 H 11/03/24 11:27 BP 155/70 H 11/03/24 07:17 Pulse Ox 91 L 11/03/24 07:17 O2 Del Method Nasal Cannula 11/03/24 07:17 O2 Flow Rate 2 11/03/24 07:17 BMI result Body Mass Index 24.4 Const: Other: Awake alert resting comfortably in bed able to speak in full sentences Resp: Other: Diminished at bases with scattered expiratory wheezes throughout Cardio: Other: No S4; positive S1-S2; no S3 murmurs rubs or gallops GI: Other: Soft nontender nondistended normoactive bowel sounds Extrem: Other: No edema bilaterally Objective Data Active Medications Acetaminophen (Acetaminophen 325 Mg Tablet) 650 mg PO Q6H PRN PRN Reason: Pain, Mild 1-3,fever,headache Last Admin: 11/01/24 14:47 Dose: 650 mg Documented By: TRISTON Albuterol/Ipratropium (Albuterol/Iprat 2.5/0.5mg 3 Ml Ampul.Neb) 3 ml INHALE Q4H PRN PRN Reason: Shortness of Breath/Wheezing Albuterol/Ipratropium (Albuterol/Iprat 2.5/0.5mg 3 Ml Ampul.Neb) 3 ml INHALE RQ4H WHILE AWAKE [facility] Last Admin: 11/03/24 11:26 Dose: 3 ml Documented By: SHABNAM Atorvastatin Calcium (Atorvastatin Calcium 10 Mg Tablet) 10 mg PO DAILY [facility] Last Admin: 11/03/24 07:58 Dose: 10 mg Documented By: MARIANN Benzonatate (Benzonatate 100 Mg Capsule) 100 mg PO TID PRN PRN Reason: Cough Calcium Carbonate (Calcium Carbonate 750 Mg Tab.Chew) 750 mg PO Q4H PRN PRN Reason: Heartburn Clonazepam (Clonazepam 0.5 Mg Tablet) 0.5 mg PO TID [facility] Fluticasone/Umeclidinium/Vilanterol (Fluticasone/Umeclidinium/Vilanterol 200/62.5/25 Blst.W.Dev) 1 puff INHALE RDAILY [facility] Last Admin: 11/03/24 07:39 Dose: 1 puff Documented By: SHABNAM Piperacillin Sod/Tazobactam (Sod 3.375 gm/ Sodium Chloride) 50 mls @ 100 mls/hr IV Q6H [facility] Last Infusion: 11/03/24 11:23 Dose: Infused Documented By: MARIANN Magnesium Hydroxide (Milk Of Magnesia 30 Ml Oral.Susp) 30 ml PO DAILY PRN PRN Reason: Constipation Melatonin (Melatonin 3 Mg Tablet) 6 mg PO BEDTIME PRN PRN Reason: Insomnia Last Admin: 11/02/24 23:25 Dose: 6 mg Documented By: AKIL Methylprednisolone Sodium Succinate (Methylprednisolone Sod Succ 125 Mg/2 Ml Vial) 60 mg IVPUSH Q6H [facility] Last Admin: 11/03/24 10:50 Dose: 60 mg Documented By: MARIANN Ondansetron HCl (Ondansetron Hcl 4 Mg/2 Ml Vial) 4 mg IVPUSH Q8H PRN PRN Reason: Nausea and Vomiting Last Admin: 11/02/24 18:32 Dose: 4 mg Documented By: MARIANN Sodium Chloride (0.9 % Sodium Chloride Flush 3 Ml Syringe) 3 ml IVFLUSH QSHIFT [facility] Last Admin: 11/03/24 07:58 Dose: 3 ml Documented By: MARIANN Labs 11/03/24 06:30 11/03/24 06:30 Labs: Laboratory Results - last 24 hr 11/02/24 11/03/24 14:52 06:30 MCV 94.5 MCH 30.3 MCHC 32.1 RDW 13.2 Plt Count 142 L D MPV 11.1 Immature Gran % (Auto) 1.3 H Neut % (Auto) 74.8 H Lymph % (Auto) 11.0 L [place] % (Auto) 12.6 H Eos % (Auto) 0.0 Baso % (Auto) 0.3 Lymph # (Auto) 0.9 L [place] # (Auto) 1.0 Eos # (Auto) 0.0 Baso # (Auto) 0.0 Abs Immat Gran (auto) 0.10 H Absolute Neuts (auto) 5.9 Absolute Nucleated RBC 0.000 Nucleated RBC % (auto) 0.0 Anion Gap 11 L Estim Creat Clear Calc 58.7 Estimated GFR > 60 Fasting Glucose 98 Calcium 8.2 L Total Bilirubin 0.3 AST 30 ALT 34 H Alkaline Phosphatase 57 Troponin I High Sens 6.6 B-Natriuretic Peptide 91 Total Protein 4.9 L Albumin 3.0 L Assessment and Plan (1) Acute hypoxemic respiratory failure: Status: Acute (2) Colitis: Status: Acute Plan This is a 69-year-old female with pertinent history of COPD not on home oxygen, tobacco use disorder, mixed hyperlipidemia who presents to the emergency department for evaluation of dyspnea. Workup consistent with COPD exacerbation secondary to pneumonitis 1. Mild pulmonary congestion by x-ray -2D echo in a.m. negative -check troponin negative -no further investigations 2..Acute hypoxemic respiratory failure due to acute exacerbation of COPD.. -DuoNebs q.4 hours while awake -Solu-Medrol 60 mg IV q.6 hours p.r.n... Switch to p.o. upon discharge -titrate O2 to maintain sats greater than equal 92% 3.Colitis with ?Hematochezia -CT with nonspecific chnages -Zosyn(4).. Likely empiric coverage however we will complete therapy as oral upon discharge -no white count 4.Hypokalemia -repleted -follow renals/divalents Mechanical Full code Requires ongoing hospitalization to treat COPD exacerbation with IV steroids and possible colitis with IV antibiotics Quality Stroke Does the patient have a stroke diagnosis?: No VTE Prior VTE?: No VTE Risk Level:: Medical - moderate - high VTE Device Contraindication: N/A - Device Ordered VTE Drug Contraindication: Treatment Not Indicated
[2024-11-03] MEDS: clonazePAM 0.5 MG TABLET PO ×2 (16:15→21:31)
[2024-11-04] MEDS: methylPREDNISolone Sod Succ 125 MG/2 ML VIAL 60 MG IVPUSH (02:48)
[2024-11-04] MEDS: Piperacillin Sodium/Tazobactam 3.375 GM in 0.9 % Sodium Chloride 50 ML IV (02:51)
[2024-11-04 02:53] VITALS: BP 140/68; PULSE 75; RESP 18; TEMP 36.7; O2SAT 92
[2024-11-04 07:45] VITALS: BP 135/70; PULSE 75; RESP 17; TEMP 37; O2SAT 93
--- NOTE | 2024-11-04 11:10 | MHC.CM.PN ---
[facility]
--- NOTE | 2024-11-04 11:24 | PC.NURSE ---
09:13 pt refusing morning meds (Clonazepam, Atorvastatin, and Solu-Medrol), pt educated on importance of med compliance and potential risks if not taken. Despite multiple attempts and education pt adamantly refuses meds. Limited physical assessment d/t pt refusal. Pt noted to be SOB, sat 93% on 3 L. Pt insists on laying supine on recliner. Refusing repositioning/interventions. MD Fink made aware, no new orders at this time. 11:00 Pt refused Zosyn, pt educated on important of antibiotic and potential risks if not taken. Pt continues to refuse care. All safety measures taken.
--- NOTE | 2024-11-04 11:38 | PC.NURSE ---
Pt continues to refuses reposition changes in recliner chair, chair noted to be reclined to fullest extent, pt appears SOB with increased work of breathing, PT attempting to work with pt, pt refusing. This RN attempted to get o2 saturation on pt, pt swatting this writers hand aware and refusing care. MD Fink made aware, no new orders at this time.
[2024-11-04] MEDS: clonazePAM 0.5 MG TABLET PO (13:21)
--- NOTE | 2024-11-04 13:30 | PM.DS ---
DS: Providers Provider Date of Service: 11/04/24 Date of admission: 10/30/24 20:38 Date of discharge: 11/04/24 Primary care physician: Laura Mackenzie MD DS: Diagnosis Discharge Diagnosis (1) Acute hypoxemic respiratory failure: Status: Acute (2) Colitis: Status: Acute DS: Summary Hospital Course Hospital Course: 69-year-old female with pertinent history of COPD not on home oxygen, tobacco use disorder, mixed hyperlipidemia who presents to the emergency department for evaluation of dyspnea. Patient states she has been having shortness of breath that has been ongoing for a while and worsened in the last few days. Dyspnea is worse with exertion but no orthopnea or PND. Has associated productive cough with clear sputum production and wheezing. Patient took her home inhaler without any relief with wheezing. No lower extremity leg swelling. Also reports generalized body ache and fatigue. Patient has a 40 pack year plus smoking history. Also states he has noticed intermittent blood per rectum which is painless. No abdominal discomfort. No fever or chills. Patient also noticed change in color of urine, questionable blood in urine. No fever, chills, chest pain, palpitations. In the emergency department, patient wheezing despite multiple DuoNeb treatments and steroids. Also found to be hypoxic and placed on supplemental oxygen. Hospital course Patient admitted to general medical floor and started on Zosyn and methylprednisolone pulse dosing. Cat scan showed a question of colitis however patient did not complain of any abdominal pain. She continued to do well however developed some relative shortness of breath during her admission. BNP was negative chest x-ray unremarkable and a 2D echo demonstrated a normal left ventricular function. Her episodes of shortness of breath and anxiety were often after son's visit. At this point in time, she is medically acceptable to transfer to long term to complete a course of oral Augmentin and a prednisone taper Time Attestation Discharge Coordination Time (in mins): 35 Quality: Safe Use of Opioids Does Pt have an Active Cancer Diagnosis on the Problem List?: No Quality: Stroke Does the patient have a stroke diagnosis?: No Physical Exam Vital Signs: Vital Signs: Last Vital Signs Temp 98.6 F 11/04/24 07:45 Pulse 75 11/04/24 07:45 Resp 17 11/04/24 07:45 BP 135/70 11/04/24 07:45 Pulse Ox 93 11/04/24 07:45 O2 Del Method Nasal Cannula 11/04/24 07:45 O2 Flow Rate 1 11/04/24 07:45 BMI result Body Mass Index 24.4 Const: Other: Awake alert resting comfortably in bed able to speak in full sentences Resp: Other: Diminished at bases with scattered expiratory wheezes throughout Cardio: Other: No S4; positive S1-S2; no S3 murmurs rubs or gallops GI: Other: Soft nontender nondistended normoactive bowel sounds Extrem: Other: No edema bilaterally Discharge Plan Discharge Anticipated Discharge Date/Time: 11/04/24 13:17 Patient Disposition: Xfer SNF Discharge Diagnosis: COPD exacerbation Referrals: [facility] [Other] - 1 Week Laura Mackenzie MD [Primary Care Provider, Internal Medicine] - 1 Week Discharge Medications: New ipratropium-albuterol 0.5 mg-3 mg(2.5 mg base)/3 mL Solution For Nebulization 3 ml inhalation Q4H PRN (Reason: Shortness Of Breath/Wheezing) Qty: 180 0RF clonazepam 0.5 mg Tablet 0.5 mg PO TID Qty: 90 0RF amoxicillin-pot clavulanate [Augmentin] 500-125 mg tablet 1 tab PO BID Qty: 14 0RF Continued Trelegy Ellipta 200-62.5-25 mcg blister with device 1 ea inhalation DAILY simvastatin 20 mg tablet 20 mg PO BEDTIME albuterol sulfate [Ventolin HFA] 90 mcg/actuation HFA aerosol inhaler 2 puff INHALATION Q4H PRN (Reason: wheezing) ipratropium-albuterol 0.5 mg-3 mg(2.5 mg base)/3 mL solution for nebulization 3 ml inhalation Q6H PRN (Reason: wheezing) Qty: 90 6RF Discharge Orders: Discharge Order (Routine); Ordered 11/04/24 Ordered By: Joseph Fink Diet: Regular diet Activity on Discharge: As tolerated Stand Alone Forms: Patient Portal Discharge page Print Language: Maldivian Care Plan Goals: Continue all meds as listed on transfer sheet Health Concerns: As per receiving facility Plan of Treatment: As per receiving facility Assessment: See discharge summary Patient Instructions: COPD (Chronic Obstructive Pulmonary Disease) (DC)
--- NOTE | 2024-11-04 13:55 | PC.NURSE ---
Pt refusing DC vitals.
== END 2024-11-04 14:06 | disposition skilled nursing facility (03) | DRG 190 ==
LOC: HO.ED 19:20 → HO.EDOVER 20:57 → HO.S3 10-31 11:00
PROVIDERS: Physician Assistant Medical; Admitting Provider Student in an Organized Health Care Education/Training Program; Emergency Provider Emergency Medicine; PCP Student in an Organized Health Care Education/Training Program; Visit Provider Hospitalist
DX: J44.1 Chronic obstructive pulmonary disease with (acute) exacerbation (principal); J69.0 Pneumonitis due to inhalation of food and vomit; J96.01 Acute respiratory failure with hypoxia; K92.1 Melena; E87.6 Hypokalemia; K52.9 Noninfective gastroenteritis and colitis, unspecified; R31.9 Hematuria, unspecified; E78.2 Mixed hyperlipidemia; F17.210 Nicotine dependence, cigarettes, uncomplicated; Z71.6 Tobacco abuse counseling; Z20.822 Contact with and (suspected) exposure to COVID-19; Z79.899 Other long term (current) drug therapy
CPT/HCPCS: 0241U; 36415; 71045; 71046; 71260; 74177; 80048; 80053; 80076; 81003; 82803; 83690; 83735; 83880; 84484; 85025; 93005; 93306; 94640; 97162; 99285; J1271; J2405; J2543; J2919; J3475; J3480; Q9957; Q9967

== ENCOUNTER → 2024-10-30 18:34 | Outpatient (BNV) | payer MEDICARE, MEDICAID, SELFPAY | PROVIDERS: Emergency Provider Emergency Medicine; PCP Student in an Organized Health Care Education/Training Program; Visit Provider Radiology Neuroradiology | DX: K80.20 Calculus of gallbladder without cholecystitis without obstruction (principal); J43.9 Emphysema, unspecified | CPT/HCPCS: 71046; 71260; 74177 ==

== ENCOUNTER → 2024-10-30 18:34 | Outpatient (BNV) | payer MEDICARE, MEDICAID, SELFPAY | PROVIDERS: Admitting Provider Student in an Organized Health Care Education/Training Program; Emergency Provider Emergency Medicine; PCP Student in an Organized Health Care Education/Training Program; Visit Provider Internal Medicine Cardiovascular Disease | DX: R00.0 Tachycardia, unspecified (principal) | CPT/HCPCS: 93010 ==

== ENCOUNTER 2024-10-30 20:38 | Outpatient (BNV) | payer MEDICARE, MEDICAID, SELFPAY | END 2024-11-02 12:05 | PROVIDERS: Admitting Provider Student in an Organized Health Care Education/Training Program; Emergency Provider Emergency Medicine; PCP Student in an Organized Health Care Education/Training Program; Visit Provider Radiology Diagnostic Radiology | DX: J44.9 Chronic obstructive pulmonary disease, unspecified (principal) | CPT/HCPCS: 71045 ==

== ENCOUNTER 2024-10-30 20:38 | Outpatient (BNV) | payer MEDICARE, MEDICAID, SELFPAY | END 2024-10-31 11:00 | PROVIDERS: Admitting Provider Student in an Organized Health Care Education/Training Program; Emergency Provider Emergency Medicine; PCP Student in an Organized Health Care Education/Training Program; Visit Provider Internal Medicine Cardiovascular Disease | DX: I34.81 Nonrheumatic mitral (valve) annulus calcification (principal); I35.8 Other nonrheumatic aortic valve disorders | CPT/HCPCS: 93306 ==

== ENCOUNTER → 2024-10-30 20:38 | Outpatient (BNV) | payer MEDICARE, MEDICAID, SELFPAY | PROVIDERS: Admitting Provider Student in an Organized Health Care Education/Training Program; Emergency Provider Emergency Medicine; PCP Student in an Organized Health Care Education/Training Program; Visit Provider Student in an Organized Health Care Education/Training Program | DX: J96.01 Acute respiratory failure with hypoxia (principal); J44.1 Chronic obstructive pulmonary disease with (acute) exacerbation; K52.9 Noninfective gastroenteritis and colitis, unspecified | CPT/HCPCS: 99223; 99232 ==

== ENCOUNTER 2024-11-24 12:50 | Emergency (ER) | payer MEDICARE, MEDICAID, SELFPAY ==
--- NOTE | 2024-11-24 | ECG_ITS ---
Test Reason : SOB Blood Pressure : */* mmHG Vent. Rate : 101 BPM Atrial Rate : 101 BPM P-R Int : 118 ms QRS Dur : 88 ms QT Int : 352 ms P-R-T Axes : 74 45 39 degrees QTcB Int : 456 ms Sinus tachycardia Nonspecific ST abnormality Abnormal ECG When compared with ECG of 30-Oct-2024 18:58, T wave inversion no longer evident in Inferior leads Referred By: Generic ED Physician Electronically Signed By: Keenan Hoffman
--- NOTE | ~2024-11-24 | XR_ITS ---
EXAMINATION: XR CHEST CLINICAL INFORMATION: weakness COMPARISON: November 02, 2024. TECHNIQUE: 2 views of the chest were obtained. FINDINGS: Hyperinflated lungs. Pulmonary reticular pattern. Opacity right lower hemithorax. No pneumothorax. Cardiomediastinal silhouette size is normal. Multilevel thoracolumbar spondylosis. Calcified plaques abdominal aorta wall. Osteopenia versus osteoporosis. XR/XR chest 2V IMPRESSION: Mild interstitial lung edema. Small to moderate volume right-sided pleural effusion. Chronic interstitial lung disease/COPD emphysematous type changes. Electronically signed by: Dominic Abdul MD 11/24/2024 01:49 PM EDT
[2024-11-24 13:00] VITALS: BP 116/69; BP 118/82; PULSE 105; PULSE 120; RESP 36; TEMP 36.8; O2SAT 93; O2SAT 95; BMI 22.0
[2024-11-24 13:06] VITALS: BP 103/67; PULSE 111; RESP 31; O2SAT 93
[2024-11-24 13:21] LABS: MANUAL DIFF FLAG NO
[2024-11-24 13:24] LABS: Hematocrit 42.6 % (37.0-47.0); Hemoglobin 14.6 g/dl (12.0-16.0); Imm Gran Abs Auto 0.05 X10*3/uL (0.00-0.03); Imm Gran Pct Auto 0.7 % (0.0-0.4); Lymphocytes Absolute Auto 1.1 X10*3/uL (1.2-4.9); Mean Corpuscular HGB Conc 34.3 g/dl (31.0-35.0); Mean Corpuscular Hemoglobin 30.7 pg (27.0-33.0); Mean Corpuscular Volume 89.5 fL (80.0-98.0); NRBC Abs Auto 0.000 X10*3/uL (0.0-0.012); NRBC Pct Auto 0.0 /100WBC (0.0-0.2); Platelet Count 154 X10*3/uL (160-400); Red Blood Count 4.76 X10*6/uL (4.20-5.50); White Blood Count 6.8 X10*3/uL (4.8-10.8)
[2024-11-24 13:26] LABS: Venous Blood Gas Refer to POC result
[2024-11-24 13:27] LABS: VBG HCO3 21 mmol/L (22-26); VBG O2 % Saturation 80.0 %
[2024-11-24 13:38] LABS: Alanine Aminotransferase 12 U/L (0-31); Albumin Level 3.9 g/dL (3.5-5.0); Alkaline Phosphatase 49 U/L (39-117); Anion Gap 17 (12-20); Aspartate Amino Transferase 18 U/L (5-31); Blood Urea Nitrogen 19 mg/dL (9-16); Calcium 8.8 mg/dL (8.4-10.2); Carbon Dioxide 21 mmol/L (22-29); Chloride 106 mmol/L (96-108); Creatinine Clr Calc Pharmacy 55.2; Estimated Glomerular Filt Rate > 60; Potassium 3.7 mmol/L (3.3-5.1); Sodium 140 mmol/L (135-145); Total Protein 6.4 g/dL (6.5-8.0)
[2024-11-24 13:45] LABS: Troponin-I High Sensitivity 5.1 ng/L (<3.5-17.0)
--- NOTE | 2024-11-24 14:04 | ED.GENADULT ---
HPI - General Adult General Chief complaint: Dyspnea Stated complaint: CONFUSED,UNCOOP FROM SNF PER EMS Time Seen by Provider: 11/24/24 13:28 Source: patient, RN notes reviewed and old records reviewed Mode of arrival: EMS Limitations: no limitations History of Present Illness ED Provider: Alexandria LEAVITT narrative: 69-year-old female with a past medical history significant for severe COPD, tobacco dependence, mixed hyperlipidemia presents for evaluation of reported confusion. The patient presents from [facility] where she presented today. Apparently staff there felt that the patient was confused The patient offers no complaints She denies any pain, shortness of breath, cough Denies any nausea vomiting, diarrhea. Denies any fevers or chills Related Data Home Medications ?Medication ?Instructions ?Recorded ?Confirmed fluticasone fur. 200 mcg-umeclid 1 ea inhalation DAILY 10/30/24 10/31/24 62.5 mcg-vilant 25 mcg inhalat.powder (Trelegy Ellipta) albuterol sulfate 90 mcg/actuation 2 puff inhalation Q4H PRN wheezing 10/31/24 10/31/24 aerosol inhaler (Ventolin HFA) simvastatin 20 mg tablet 20 mg PO BEDTIME 10/31/24 10/31/24 Previous Rx's ?Medication ?Instructions ?Recorded ipratropium 0.5 mg-albuterol 3 mg 3 ml inhalation Q6H PRN wheezing 04/27/24 (2.5 mg base)/3 mL nebulization #90 mL soln amoxicillin 500 mg-potassium 1 tab PO BID #14 tabs 11/04/24 clavulanate 125 mg tablet (Augmentin) clonazepam 0.5 mg tablet 0.5 mg PO TID #90 tabs 11/04/24 ipratropium 0.5 mg-albuterol 3 mg 3 ml inhalation Q4H PRN Shortness 11/04/24 (2.5 mg base)/3 mL nebulization Of Breath/Wheezing #180 mL soln prednisone 10 mg tablet See Rx Instructions .Route 11/04/24 .COMPLEX #45 tabs Allergies Allergy/AdvReac Type Severity Reaction Status Date / Time azithromycin (AZITHROMYCIN) Allergy Unknown AGITATION Verified 11/24/24 13:06 Review of Systems Constitutional: Constitutional: Denies body ache(s), Denies chills, Denies fever(s) and Denies headache(s) Eyes: Eyes: Denies blurry vision ENT: Denies dizziness and Denies headache(s) Cardiovascular: Cardiovascular: Denies chest pain and Denies dyspnea on exertion Respiratory: Respiratory: Denies cough and Denies dyspnea on exertion Gastrointestinal: Gastrointestinal: Denies abdominal pain Musculoskeletal: Musculoskeletal: Denies back pain Integumentary/Breasts: Skin/Breast: Denies rash Neurologic: Denies dizziness and Denies headache(s) Psychiatric: Psychiatric: Denies anxiety PMFSH Past Medical History Medical History Hypercholesteremia COPD (chronic obstructive pulmonary disease) Nicotine dependence, cigarettes, uncomplicated Vitamin D deficiency Surgical History History of hysterectomy History of appendectomy History of tonsillectomy Family History Family History Daughter Leiomyosarcoma Sister Lung cancer Social History Social History Household Members: None Household Members Other:: son live upstairs Housing: House Do you presently have visiting nurse or other home services: No Alcohol intake: never Patient Tobacco Use Status: Current everyday Tobacco user Tobacco use type: Cigarette Cigarettes Per Day: 6 Years Smoked: (onset 18yo, 1/2ppd x 50yrs, 25pyh) Smoked in Last 30 Days: Yes Second Hand Smoke Exposure: No Advance Directives: No Advance Directives Information Provided: Yes service: No Physical Exam ED Vital Signs: Vital Signs - 24 hr 11/24/24 13:00 11/24/24 13:06 11/24/24 14:07 Temperature 98.2 F 96.8 F Pulse Rate 105 H 111 H 98 Respiratory Rate 36 H 31 H 25 H Blood Pressure 116/69 103/67 98/57 L Pulse Oximetry 93 93 90 L Oxygen Delivery Method Room Air Room Air Room Air 11/24/24 15:05 Temperature Pulse Rate 86 Respiratory Rate 24 H Blood Pressure 116/68 Pulse Oximetry 94 Oxygen Delivery Method Room Air BMI result Body Mass Index 22.0 Resp Other: The patient is tachypneic but lungs are clear to auscultation Effort & Inspection: abnormal respiratory effort Auscultation: clear to auscultation bilaterally Course Reevaluation(s) Reevaluation #1: I called the patient's son, Maikel. He reports that he had a meeting with the care team at [facility] yesterday about the patient being resistant to eating and taking her medications. The patient is being worked up for paranoia. He does not feel that his mother has been confused but rather resisting medications and eating and drinking. He discussed with the patient this morning and she had agreed to take her medications and increase food and drink. He did not feel the patient required emergency room care and he discuss this with [facility]. The patient is continuing to rest comfortably without any complaints, she remains awake, alert and oriented. We will try to get a urinalysis prior to disposition but anticipate discharge back to [facility] Time: 15:16 Reevaluation #2: Urinalysis appears contaminated with greater than 20 epithelial cells. The patient denies UTI symptoms, we will monitor treatment at this time Time: 15:58 Medical Decision Making Medical Decision Making [facility] Narrative: 69-year-old female presents for evaluation of reported confusion. At the time of my evaluation she is awake, alert and oriented. She is somewhat tachypneic but denies shortness of breath, she is not hypoxic in her lungs are clear to auscultation. Basic labs will be ordered. The patient had a VBG ordered due to the tachypnea and history of COPD, her pH is within normal limits at 7.41, her bicarb is just below normal at 21 an otherwise unremarkable VBG. Hematology is significant for a mild thrombocytopenia which is slightly improved from recent labs. Platelet count of a 634807. There is no leukocytosis. Chemistries without concerning abnormality warranting intervention. Carbon dioxide level is low at 21 likely due to the patient's tachypnea. BUN is slightly elevated to 19 but this is consistent with her baseline with a normal creatinine of 0.83 and a GFR of 55.2. No electrolyte abnormalities, liver enzymes within normal limits. No evidence of hepatic encephalopathy, less likely CVA as the patient has no deficits Differential Diagnosis Differential Diagnoses: The differential diagnosis associated with the presentation includes UTI Delirium Confusion hepatic encephalopathy Lab Data [facility] Lab Attestation statement: I reviewed the patient's lab results. As above 11/24/24 13:16 11/24/24 13:16 Labs: Lab Results 11/24/24 11/24/24 11/24/24 Range/Units 13:16 13:22 15:28 WBC 6.8 (4.8-10.8) X10*3/uL RBC 4.76 (4.20-5.50) X10*6/uL Hgb 14.6 (12.0-16.0) g/dl Hct 42.6 (37.0-47.0) % MCV 89.5 (80.0-98.0) fL MCH 30.7 (27.0-33.0) pg MCHC 34.3 (31.0-35.0) g/dl RDW 13.8 (11.0-16.0) % Plt Count 154 L (160-400) X10*3/uL MPV 9.9 (9.4-12.3) fL Immature Gran % (Auto) 0.7 H (0.0-0.4) % Neut % (Auto) 73.2 H (45-73) % Lymph % (Auto) 16.0 L (20-40) % [place] % (Auto) 9.4 (2-11) % Eos % (Auto) 0.3 (0-4) % Baso % (Auto) 0.4 (0-2) % Lymph # (Auto) 1.1 L (1.2-4.9) X10*3/uL [place] # (Auto) 0.6 (0.1-1.2) X10*3/uL Eos # (Auto) 0.0 (0.0-0.4) X10*3/uL Baso # (Auto) 0.0 (0.0-0.2) X10*3/uL Abs Immat Gran (auto) 0.05 H (0.00-0.03) X10*3/uL Absolute Neuts (auto) 5.0 (2.0-8.3) x10*3/uL Absolute Nucleated RBC 0.000 (0.0-0.012) X10*3/uL Nucleated RBC % (auto) 0.0 (0.0-0.2) /100WBC VBG pH 7.41 (7.32-7.43) VBG pCO2 33 mmHg VBG pO2 51 mmHg VBG HCO3 21 L (22-26) mmol/L VBG O2 Saturation 80.0 % VBG Base Excess -2.2 mmol/L Sodium 140 (135-145) mmol/L Potassium 3.7 (3.3-5.1) mmol/L Chloride 106 (96-108) mmol/L Carbon Dioxide 21 L (22-29) mmol/L Anion Gap 17 (12-20) BUN 19 H (9-16) mg/dL Creatinine 0.83 (0.5-1.4) mg/dL Estim Creat Clear Calc 55.2 Estimated GFR > 60 Random Glucose 123 H (60-115) mg/dL Calcium 8.8 D (8.4-10.2) mg/dL Total Bilirubin 0.8 (0.0-1.0) mg/dL AST 18 (5-31) U/L ALT 12 (0-31) U/L Alkaline Phosphatase 49 (39-117) U/L Troponin I High Sens 5.1 (<3.5-17.0) ng/L Total Protein 6.4 L (6.5-8.0) g/dL Albumin 3.9 (3.5-5.0) g/dL Urine Color Dark Yellow Urine Appearance Cloudy Urine pH 5.0 (5.0-9.0) Ur Specific [place] >= 1.030 H (1.005-1.025) Urine Protein 30 (1+) H (Neg-Trace) mg/dL Urine Glucose (UA) Negative (Negative) mg/dL Urine Ketones 80 (Negative) mg/dL Urine Blood Negative (Negative) Urine Nitrite Negative (Negative) Ur Leukocyte Esterase Trace H (Negative) Urine RBC 0-2 (0-2) /HPF Urine WBC 6-10 H (0-5) /HPF Ur Squamous Epith Cells >20 (0-2) /HPF Urine Bacteria 2+ (None Seen) Hyaline Casts >20 (0-2) /LPF Discharge Plan Discharge Clinical Impression: Adult failure to thrive Patient Disposition: Xfer Acute Care Hospital Transfer Details: [facility] Instructions: Failure to Thrive in Older Adults (ED) Additional Instructions: Your workup in the ER today was reassuring. This includes your blood work, urinalysis, chest x-ray I recommend that you take your medications as prescribed by Prescriptions: No Action Trelegy Ellipta 200-62.5-25 mcg blister with device 1 ea inhalation DAILY simvastatin 20 mg tablet 20 mg PO BEDTIME albuterol sulfate [Ventolin HFA] 90 mcg/actuation HFA aerosol inhaler 2 puff INHALATION Q4H PRN (Reason: wheezing) ipratropium-albuterol 0.5 mg-3 mg(2.5 mg base)/3 mL Solution For Nebulization 3 ml inhalation Q4H PRN (Reason: Shortness Of Breath/Wheezing) Qty: 180 0RF clonazepam 0.5 mg Tablet 0.5 mg PO TID Qty: 90 0RF amoxicillin-pot clavulanate [Augmentin] 500-125 mg tablet 1 tab PO BID Qty: 14 0RF prednisone 10 mg tablet See Rx Instructions .Route .COMPLEX Qty: 45 0RF Rx Instructions: 10 mg orally; 5 tabs p.o. daily x3 days; 4 tabs p.o. daily x3 days; 3 tabs daily x3 days; 2 tabs daily x3 days; 1 tab daily x3 days ipratropium-albuterol 0.5 mg-3 mg(2.5 mg base)/3 mL solution for nebulization 3 ml inhalation Q6H PRN (Reason: wheezing) Qty: 90 6RF Print Language: Barbadian
[2024-11-24 14:07] VITALS: BP 98/57; PULSE 98; RESP 25; TEMP 36; O2SAT 90
--- OUTSIDE RECORDS SUMMARY | 2024-11-24 14:13 | XMS_ITS | Data Portability ---
Author Organization [facility], Main Office Address [address] [facility] [place] [address] Care Team Providers Care Pencils Washer Name Role Phone AVINASH PATEL - 2ND FLOOR OTHER Assessment No assessment recorded. Plan of Treatment Reminders Order Date Submit Date Provider Last Modified By Organization Details Last Modified Time Details Appointments None record ed. Lab None record ed. Referral None record ed. Procedures None record ed. Surgeries None record ed. Imaging None record ed. Medication Orders None record ed. Patient TargetsNo targets recorded. Patient InstructionsNo instructions recorded. Reason for Referral None Reported. Problems Name Problem SNOMED Code Status Onset Date Resolution Date Notes Provider Name and Address Organization Details Recorded Time Acute exacerbation of chronic obstructive pulmonary disease 883001594 Active 2024 Keya Ayon NP [address] [facility], [address], [place], [address], [facility] 5 10:32:47 Colitis 93284207 Active 2024 Keya Ayon NP [address] [facility], [address], [place], [address], [facility] 5 10:33:00 Anxiety 91966709 Active 2024 Keya Ayon NP [address] [facility], [address], [place], [address], [facility] 5 10:33:32 Hyperlipidemia 89164608 Active 2024 Keya Ayon NP [address] [facility], [address], [place], [address], [facility] 5 10:34:09 Hearing loss 19127962 Active 2024 Keya Ayon NP [address] [facility] [address], [place], [address], [facility] 5 10:42:01 Problem Notes None recorded. Medical Equipment None Reported. Allergies Allergen ID Allergen Name Allergen Category Reaction Reaction Severity Criticality Documentation Date Start Date Code Code System Note Provider Name and Address Organization Details Recorded Time 29267 azithromy floyd medicatio n other severe unabletoasse ss 11/05/2024 95172 RxNorm agita tion Keya Ayon NP [address] [place] [address] [address], [place], [address], [facility] 5 09:30:26 Medications Name Sig Start Date Stop Date Status Note LastModified by Organization Details LastModified Time clonazepam 0.5 mg tablet Take 1 tablet 3 times a day by oral route. 025 active Not Available Not Available Not Avai lable Vitals Date Recorded Body weight Heart rate Respiratory rate Body temperature Oxygen saturation Oxygen saturation in Arterial blood by Pulse oximetry Inhaled oxygen flow rate Systolic And Diastolic Provider Name and Address Organization Details Last Updated DateTime 5 59402.8 9 g 93 /min 18 /min 97.9 [degF] 93 % 93 % 2 L/min 132/75 mm[Hg] Keya Ayon NP [address] [place] [address] [address], [address], [facility] 5 09:25:24 Date Recorded Body height Body mass index (BMI) Body weight Heart rate Respiratory rate Body temperature Oxygen saturation Oxygen saturation in Arterial blood by Pulse oximetry Inhaled oxygen flow rate Systolic And Diastolic Provider Name and Address Organization Details Last Updated DateTime 5 162.56 cm 24.9 kg/m2 29438.8 9 g 94 /min 17 /min 97.5 [degF] 98 % 98 % 2 L/min 128/74 mm[Hg] Allison Holloway MD [address] [facility] [address], [place], [address], [facility] 5 19:20:24 Date Recorded Body height Body weight Heart rate Respiratory rate Body temperature Oxygen saturation Oxygen saturation in Arterial blood by Pulse oximetry Systolic And Diastolic Provider Name and Address Organization Details Last Updated DateTime 5 162.56 cm 31037.4 9 g 66 /min 16 /min 97.6 [degF] 98 % 98 % 124/74 mm[Hg] Keya Ayon NP [address] [facility], [facility] [address], [place], [address], [facility] 5 10:59:56 Date Recorded Body height Heart rate Respiratory rate Body temperature Oxygen saturation Oxygen saturation in Arterial blood by Pulse oximetry Systolic And Diastolic Provider Name and Address Organization Details Last Updated DateTime 5 162.56 cm 68 /min 18 /min 97.8 [degF] 96 % 96 % 132/64 mm[Hg] AMBER MASON NP [address] [facility], [address], [place], [address], [facility] 5 11:48:43 Date Recorded Body height Body weight Heart rate Respiratory rate Body temperature Body mass index (BMI) Oxygen saturation Oxygen saturation in Arterial blood by Pulse oximetry Systolic And Diastolic Provider Name and Address Organization Details Last Updated DateTime 5 162.56 cm 94273.1 9 g 71 /min 18 /min 97.5 [degF] 22.7 kg/m2 97 % 97 % 116/64 mm[Hg] Keya Ayon NP [address] [facility], [facility] [address], [place], [address], [facility] 5 11:20:50 Social History Question Answer Notes LastModified by Organizat ion Details LastModified Time Tobacco Smoking Status Former Smoker quit in the hospital approx 1 week ago Keya Ayon NP [address] [facility], [facility] [address], [place], [address], [facility] 11/05/2024 09:55:23 Do You Have An Advance Directive? Yes Information not available 11/06/2024 What Is Your Code Status? Full Code Information not available 11/06/2024 Legal Guardian? No Information not available 11/06/2024 Do You Have A Medical Power Of Guest Services Representative? Yes Invoked Information not available 11/06/2024 What Was The Date Of Your Most Recent Tobacco Screening? 11/05/2024 Information not available 11/05/2024 Do You Have An Out Of Hospital DNR? No Information not available 11/06/2024 How Much Tobacco Do You Smoke? 1 PPW One Or Two Cigarettes Per Day Information not available 11/06/2024 Has Tobacco Cessation Counseling Been Provided? Yes Doesn't Feel The Need For NRT Information not available 11/06/2024 On What Date Was Tobacco Cessation Counseling Provided? 11/05/2024 Information not available 11/05/2024 Sex: Unknown Functional Status Question Answer Note LastModified by Organizat ion Details LastModified Time Do you use any illicit or recreational drugs? No Information not available 11/05/2024 Do you or have you ever used any other forms of tobacco or nicotine? No Information not available 11/05/2024 What is your level of alcohol consumption? None Information not available 11/05/2024 Mental Status None recorded. Family History Nothing Reported Notes:daughter: in mar of leiomyosarcoma sister lung cancer Medical History No medical history recorded. Gynecological HistoryNo gynecological history recorded. Obstetrics History GPAL:G 0 P 0 0 0 0 Immunizations Vaccine Type Date Status Note Provider Nam e and Address Organization Details Recorded Time Tdap 8 completed [facility] 11/05/2024 13:26:40 Tdap 9 [facility] 11/05/2024 13:26:48 Pneumococcal conjugate PCV 13 2 [facility] 11/05/2024 13:27:04 zoster, unspecified formulation 2 [facility] 11/05/2024 13:27:20 Past Encounters Encounter ID Performer Location Encounter Start Date Encounter Closed Date Diagnosis/Indication Diagnosis SNOMED-CT Code Diagnosis ICD10 Code Diagnosis Note [id number] Keya Ayon NP [address] [address] 11/05/2024 09:24:04 11/12/2024 08:12:20 Anxiety 59353911 F41.9 seems agitated and upset, ? depressed since daughter passedcont supportive careclonaz epam 0.5 mg po tidpsych consult Acute exac erbation of chronic obstructive pulmonary disease 508819072 J44.1 trelegy 1 inh qdalbulter ol 2 puffs prn wheezesduo nebs q 6 hrs prnprednis one tapermonit or resp statuscbc and cmp weekly x 3 Colitis 99311976 K52.9 pt dx with colitaugme ntin bid x 7 more daysmonito rcbc and cmp weekly x 3. Hyperlipidemia 83636540 E78.5 simvastati n 20 mg po qhsmonitor Impaired cognition 77777 6002 R41.89 pt with recent memory issues per son getting worsescore d 01/01 on bimsinvoke today , son hcpmonitor Tobacco de pendence caused by cigarettes 2668545325 3384657 F17.210 pt was smoking 1-2 cigarettes a day and has quitrefuse s NRT, has no urgesmokin g cessation counseling for 3-10 minutes discussedm onitor Hearing loss 66589997 H9 1.90 pt is hard of hearing at baselinesh e has hearing aids but doesnt like to use themneed to yellmonito r Asthenia 78841760 R53.1 pt with astheniapt ot to eval and treatsuppo rtive caremonito r for needs [id number] Allison Holloway MD [address] [address] 11/06/2024 19:05:11 11/12/2024 08:36:26 Acute exacerbation of chronic obstructive pulmonary disease 268406593 J44.1 Continues to get dyspneic without O2, but O2 sats good.Uncle ar etiology.I npt notes say she got more SOB when son visited.Co ntinue prednisone taper, Trelegy 200/62.5/2 5 mcg qd, duonebs q 4 hrs prn and albuterol MDI 2 puffs q 4 hrs prn.Monito r resp statusWean O2 as tolerated to maintain sats >90% Colitis 49451979 K52.9 Txed for colitis based on CT scan, despite no sxs.Contin ue Augmentin 500 mg BID until 11/11Will add probiotic BID until 11/16.Monit or sxs and labs. Impaired cognition 81641 6002 R41.89 Won't answer memory questions tonight, but BIMs was 8/15 on admission. Continue supportive care, expect decline.HC P invokedMon itor mood and behaviors. Psych consult. Tobacco de pendence caused by cigarettes 8163485774 0366314 F17.210 Smoked very little at baseline.N o urge to smoke since here.Gladys nue to encourage fci cessation. Hearing loss 10230619 H9 1.90 Encourage pt to use hearing aids.If they are not in, need to yell.Gladys nue supportive care. Hyperlipidemia 57764057 E78.49 Continue simvastati n 20 mg qhsMonitor labs as outpt. Asthenia 69657715 R53.1 Very deconditio yonathan.Needs PT/OT for strengthen ing, balance, gait training, safety and function.C ontinue fall precaution s.Monitor for safety. Generalize d anxiety disorder 86895849 F41.1 Mood labile since daughter's in 05/2024.Brian y flat/depre ssed affect tonight.Co ntinue clonazepam 0.5 mg TIDPsych consult [id number] Keya Ayon, NABIL [address] [address] 11/11/2024 09:18:38 11/12/2024 10:40:03 Acute exacerbation of chronic obstructive pulmonary disease 690884475 J44.1 Continues to get dyspneic without O2, but O2 sats good and remains on 2.5 liters this amhosp felt exac due to pneumoniti s and emphysemaC ontinuepre dnisone taperTrele gy 200/62.5/2 5 mcg qdduonebs q 4 hrs prn and albuterol MDI 2 puffs q 4 hrs prn.Monito r resp statusWean O2 as tolerated to maintain sats >90% Colitis 02110013 K52.9 Txed for colitis based on CT scan, despite no sxs.Contin ueAugmenti n 500 mg BID until 11/11probio tic BID until 11/16.Monit or sxs and labs. Asthenia 92092511 R53.1 Very deconditio yonathan.contPT /OT for strengthen ing, balance, gait training, safety and function.C ontinue fall precaution s.Monitor for safety. Generalize d anxiety disorder 28572659 F41.1 Mood labile since daughter's in 05/2024.Brian y flat/depre ssed affectCont inue clonazepam 0.5 mg TIDPsych consult Impaired cognition 30487 6002 R41.89 BIMs was 8/15 on admission. Continue supportive care, expect decline.HC P invokedMon itor mood and behaviors. Psych consult. Hearing loss 79602305 H9 1.90 Encourage pt to use hearing aids.If they are not in, need to yell.Gladys nue supportive care. Hyperlipidemia 44732455 E78.49 Continuesi mvastatin 20 mg qhsMonitor labs as outpt. Gastroesop hageal reflux disease without esophagitis 156183664 K21.9 likely due to prednisone and abx6/25 start pepcid 20 mg po bid x 7 days25 zofran 4 mg po q 6 hrs prn nausea [id number] [facility] [address] 11/19/2024 08:59:44 11/23/2024 15:55:16 Acute exacerbation of chronic obstructive pulmonary disease 357951536 J44.1 Pt. frequently removing her O2O2 sats on RA currently 93%.Curren tly wheezy, but no cough, SOB currently at rest.Predn isone taper ending 11/20 Plan -Continue trelegy 200/62.5/2 5 mcg qdSchedule duonebs qid and q 4 hrs prnContinu e albuterol MDI 2 puffs q 4 hrs prn.Wean off O2 - pt. removing it frequently . O2 sats 93% on RA at this time. Discussed with nsg., continue to monitor O2 sats, goal is >88 - 90% RA.Conside r restarting prednisone , but will try scheduled updrafts first.Linda tor closely. Gastroesop hageal reflux disease without esophagitis 745927704 K21.9 likely due to prednisone and abxImprove d with pepcid 20 mg po bid x 7 dayszofran 4 mg po q 6 hrs prn nausea also available. Colitis 06379535 K52.9 Txed for colitis based on CT scan, despite no sxs.Comple tarik Augmentin 500 mg BID on 11/11Monito r sxs and labs. Asthenia 63829520 R53.1 Very deconditio yonathan.contPT /OT for strengthen ing, balance, gait training, safety and function.C ontinue fall precaution s.Monitor for safety. Generalize d anxiety disorder 39056062 F41.1 Mood labile since daughter's in 05/2024.Brian y flat/depre ssed affectCont inue clonazepam 0.5 mg TIDPsych consult Impaired cognition 30966 6002 R41.89 BIMs was 01/01 on admission. Continue supportive care, expect decline.HC P invokedMon itor mood and behaviors. Psych consult. Hearing loss 22435170 H9 1.90 Encourage pt to use hearing aids.If they are not in, need to yell.Gladys nue supportive care. Hyperlipidemia 71116327 E78.49 Continuesi mvastatin 20 mg qhsMonitor labs as outpt. [id number] [facility] [address] 11/23/2024 11:16:55 11/24/2024 11:57:56 Acute exacerbation of chronic obstructive pulmonary disease 271684728 J44.1 Pt. frequently removing her O2 and seems when she allows staff to check O2 sats over the weekend stable at 93% Ra. She is currently refusing exam or vitalscomp leted prednisone tapercontt relegy 200/62.5/2 5 mcg qdduonebs qid and q 4 hrs prnalbuter ol MDI 2 puffs q 4 hrs prn.cont to Wean off O2 - pt. removing it frequently and noncomplia nt. O2 sats 93% on RA recently. refuses to be checked today. however not in distress.D iscussed with nsg., continue to monitor O2 sats, goal is >88 - 90% RA.Conside r restarting prednisone , but will try scheduled updrafts first.Linda tor closely. Gastroesop hageal reflux disease without esophagitis 233383989 K21.9 seems improved, likely due to prednisone and abxImprove d with pepcid 20 mg po bid x 7 days now completedc ontzofran 4 mg po q 6 hrs prn nausea also available. Colitis 89780469 K52.9 resolvedTx ed for colitis based on CT scan, despite no sxs.Comple tarik Augmentin 500 mg BID on 11/11Monito r sxs and labs. Asthenia 36981748 R53.1 Very deconditio yonathan and cont to work with therapycon tPT/OT for strengthen ing, balance, gait training, safety and function.C ontinue fall precaution s.Monitor for safety. Generalize d anxiety disorder 55276581 F41.1 Mood labile since daughter's in 05/2024.Brian y flat/depre ssed affectCont inue clonazepam 0.5 mg TID, has been refusingPs [facility] following Impaired cognition 16797 6002 R41.89 BIMs was 01/01 on admission. Continue supportive care, expect decline.HC P invoked, son is HCPMonitor mood and behaviors. Psych consult. Hearing loss 04681648 H9 1.90 Encourage pt to use hearing aids.If they are not in, need to yell.Gladys nue supportive care. Hyperlipidemia 08458501 E78.49 Continuesi mvastatin 20 mg qhsMonitor labs Adult fail ure to thrive syndrome 098722751 R62.7 pt is failing to thrive since loss of daughtercu rrently refusing meds todaynursi ng to retrywgt down 13 lbs since here. now 132lbs was 145 on admit on taff to bring in snacksdiet ician consult adendump sych consult rec 11/23 miratapine 7.5mg po qhs x 1 week, then 15 mg po qhs after. will agreehcp son called but no answer Health Concerns Section Related Observation LastModified by Organization Detai ls LastModified Time None Recorded Concern Status LastModified by Organization Details LastModified Time None Recorded Advance Directives Directive Y: Payers Insurance Date Sequence Insurance Name Policy Number Policy Marcus Covered Member ID Marcus Member ID Guarantor Name 11/19/2024 2 [place] [facility] Julia Monzon [id number] Julia Monzon 11/19/2024 1 [place] [employer] Julia Monzon [id number] Julia Monzon Notes Date Note Type Note Provider Name and Address Organization Details Recorded Time 11/05/2024 text/html Pt is seen for a n initial intake visit. Marci Carlton) is a 69 yo female with pmh of copd, tobacco use disorder, mixed hyperlipidema who presented to the ER for evaluation of dyspnea diagnosed with copd, hypoxemic respiratory failure, and colitis. Workup: mild babasilar atelectasis/pneumonitis and moderate emphysematous changes in both lungs. On exam, pt is scoring a BIMS of 8/15. She is dyspneic and recovering since o2 reapplied and increased to 3 liters and nebulizer given. She had initially taken out her o2 and eventually was able to reapply o2. Nursing states she is refusing meds this am and son at bedside. A goals of care conversation is had and pt is invoke with son as HCP. Son concerned she is having falls at home and lives alone. States she is having difficulty since daughter in March and requests psych consult. Nursing states she is refusing meds this am. Pt agrees to take after some time one by one if nurse stands ther with her. MOLST: Full code signed on 11/05/24 invoked with son Maikel Keya Ayon, NABIL [address] [facility], [address], [place], [address], [facility] [employer] 11/05/2024 10:49:51 11/06/2024 text/html This is a 69 yo woman who is here for rehab after an acute hospitalization for hypoxic resp failure and colitis. [facility] with c/o of dyspnea and non-exertional CP. Also a questionable hx of BRBPR and dark colored urine.She also reported decreased po intake.She was tachycardic to 120, dyspneic to 24, but O2 sat was 94% on RA.After admission sat dropped to 88% and she was started on supplemental O2 with good effect.CXR showed mild emphysematous changes, but nothing acute.CT then showed Mild bibasilar atelectasis/pneumonitis .And: 1. Wall thickening of the large intestine is nonspecific, including thececum. Differential considerations include colitis.2. No small bowel obstruction.3. Mild wall thickening of the urinary bladder.4. Cholelithiasis. Txed for COPD exacerbation with nebs and solumedrol. And started on doxy.She was also noted to be hypokalemic and this was repleted.She was then switched to Zosyn due to possible colitis and then to Augmentin for d/c. Perd/c summary:69-year-old female with pertinent history of COPD not on home oxygen, tobacco use disorder, mixed hyperlipidemia who presents to the emergency department for evaluation of dyspnea. Patient states she has been having shortness of breath that has been ongoing for a while and worsened in the last few days. Dyspnea is worse with exertion but no orthopnea or PND. Has associated productive cough with clear sputum production and wheezing. Patient took her home inhaler without any relief with wheezing. No lower extremity leg swelling. Also reports generalized body ache and fatigue. Patient has a 40 pack year plus smoking history. Also states he has noticed intermittent blood per rectum which is painless. No abdominal discomfort. No fever or chills. Patient also noticed change in color of urine, questionable blood in urine. No fever, chills, chest pain, palpitations.In the emergency department, patient wheezing despite multiple DuoNeb treatments and steroids. Also found to be hypoxic and placed on supplemental oxygen.Hospital coursePatient admitted to general medical floor and started on Zosyn and methylprednisolone pulse dosing. Cat scan showed a question of colitis however patient did not complain of any abdominal pain. She continued to do well however developed some relative shortness of breath during her admission. BNP was negative chest x-ray unremarkable and a 2D echo demonstrated a normal left ventricular function. Her episodes of shortness of breath and anxiety were often after son's visit. She wastransferred here on 11/04.She has just begun working with rehab and it is slow going so far.She needs mod assist for transfers and ambulation, SBA with bed mobility. Tonight she is in bed. She keeps her eyes closed while she talks to me. She seems annoyed and sometimes refuses to answer my questions. SHe says she always has trouble breathing, but has never needed O2 before. Her PMH includes COPD, cigarette smoker, HLD and mild cognitive impairment (BIMs 01/01). Allison Holloway MD [address] [place] [address], [address], [place], [address], [facility] 11/06/2024:00:48 11/11/2024 text/html This is a 69 yo woman recently admitted to [facility] 10[facility]30[facility]02 for acute hospitalization for hypoxic resp failure and colitis here for rehab and continued care. Her PMH includes COPD, cigarette smoker, HLD and mild cognitive impairment (BIMs 15). Pt seen today in her room in [facility]. She states her room is warm. She has fans in her room today. She states she had a mouthful of vomiting last night and swallowed it. She states she is feeling better. Per staff she had a very large bm this am. She is eating and drinking good amounts, complaint with o2 this am and taking medications this am. She may have some reflux due to the prednisone and abx. Will start pepcid po bid x 7 days and reeval. Hospital workup :[facility] with c/o of dyspnea and non-exertional CP. Also a questionable hx of BRBPR and dark colored urine.She also reported decreased po intake.She was tachycardic to 120, dyspneic to 24, but O2 sat was 94% on RA.After admission sat dropped to 88% and she was started on supplemental O2 with good effect.CXR showed mild emphysematous changes, but nothing acute.CT then showed Mild bibasilar atelectasis/pneumonitis .And: 1. Wall thickening of the large intestine is nonspecific, including thececum. Differential considerations include colitis.2. No small bowel obstruction.3. Mild wall thickening of the urinary bladder.4. Cholelithiasis. Txed for COPD exacerbation with nebs and solumedrol. And started on doxy.She was also noted to be hypokalemic and this was repleted.She was then switched to Zosyn due to possible colitis and then to Augmentin for d/c.BNP was negative chest x-ray unremarkable and a 2D echo demonstrated a normal left ventricular function. Her episodes of shortness of breath and anxiety were often after son's visit.BNP was negative chest x-ray unremarkable and a 2D echo demonstrated a normal left ventricular function. MOLST: Full code signed on 11/05/24 invoked with son Maikel Pastorcleo Ayon, LARD RENDERER [address] [facility], [address], [place], [address], [facility] [employer] 11/11/2024 11:16:10 11/19/2024 text/html Marisa is seen toelsa thrasher for an acute visit. She is a 69 yo woman recently admitted to [facility] from [facility] 10[facility]11[facility]02 for continued care and rehab after a hospitalization for hypoxic resp failure and colitis. Treated with O2, doxy, nebs, and steroids. Abx. changed to zosyn then augmentin to cover concern of colitis. Noted to have episodes of shortness of breath and anxiety often after son's visit. So far while here, Marisa has been doing ok.Working with rehab.VSSLabs stable.Pepcid added x 7d to help with c/o reflux, though r/t steroids and/or antibiotics. Per nsg., ? of some increased confusion the past few days. She is frequently removing her O2, sats reported to be 93% RA. Upon exam, Marisa is sitting on the side of her bed, alert, appetite 100%. Affect flat/quiet. Most responses yes/no. She thinks her breathing is doing good right now. Denies SOB presently. No GI upset. No pain. O2 sat checked on 2L = 94%. O2 turned down to 1.5 L, but upon return 10 mins. later she had removed her O2 saying she didn't want it. O2 sat on RA = 93%. Her PMH includes COPD, cigarette smoker, HLD and mild cognitive impairment (BIMs 8/15).MOLST: Full code signed on 11/05/24 invoked with son Maikel CLARK NABIL MASON [address] [facility], [address], [place], [address], [facility] [employer] 11/19/2024 12:39:38 11/23/2024 text/html Marisa is seen toelsa thrasher for an acute visit. Her PMH includes COPD, cigarette smoker, HLD and mild cognitive impairment (BIMs 8/15). Marisa is a 69 yo woman recently admitted to [facility] from [facility] 10/30-11/02 for continued care and rehab after a hospitalization for hypoxic resp failure and colitis. While in the hospital: Treated with O2, doxy, nebs, and steroids. Abx. changed to zosyn then augmentin to cover concern of colitis. Nursing concerned about Marisa this am. States she has been refusing meds and taking her o2 out of her nose frequently since here. She is on clonazepam and trelegy aswell as nebs when needed. Meds reviewed on admission with her son and her and several times with nursing. She has been provided with a copy of her medications to review also. She refused lab and ua last week. Labs rescheduled for 11/26. prior labs stable. Today, this [employer] attempted to review her meds and care. Most importantly on trelegy and clonazepam. Staff are bringing snacks in and drinks to see if she will take that. [employer] and psych consult pending. UA and labs were ordered but she is refusing. Will continue to retry and support here. On exam,Marisa is sitting at the side of her bed writing in a notebook. She refuses any review of meds or care in conversation. She refuses an exam today. She is not agitated, just states, I don't feel like it right now and I'm fine. . She has a very flat affect. She has no 02 in and is not in any distress. She is pink and able to speak in full sentence and does not appear SOB. She also refused vitals. Appears euvolemic and refused breakfast this am. addendumpt was seen by psych and recommended mirtazapine for weight loss, depression, and failure to thrive. Will order. unclear if patient wilil take. Called son x 1 to update but no answer. MOLST: Full code signed on 11/05/24 invoked with son Maikel Keya Ayon, NABIL [address] [facility], [address], [place], [address], [facility] [employer] [facility] 11/23/2024 13:39:25 OBGyn Episode No OBEpisode recorded.
--- OUTSIDE RECORDS SUMMARY | 2024-11-24 14:13 | XMS_ITS | Clinical Summary ---
Author Organization [employer] Address [address] [facility] 7[address] [place] [address] Care Team Providers Care Trade Recruiter Name Role Phone Laura Mackenzie MD Primary Care Provider [phone] Allergies No known active allergies Medications simvastatin (Zocor) 20 MG tablet Take 1 tablet (20 mg) by mouth at bedtime. 30 tablet 11 4 Active Fluticasone Furoate-Vilante rol (Breo Ellipta) 200-25 [...] Encounters Date Type Department Care Team Description 11/24/2024 Orders Only GENERIC EXTERNAL DATA DEPARTMENT Provider, Generic External Data 10/30/2024 Orders Only GENERIC EXTERNAL DATA DEPARTMENT Provider, Generic External Data 10/30/2024 Telephone [facility] [address] [place] [phone] Laura Mackenzie MD Nurse Triage from Last 3 Months Immunizations Immunization Administration Dates Next Due Influenza High-dose Quadriva [...] 80 12/13/2023 9:03 AM EDT Temperature 36.2 C (97.1 F) 12/13/2023 9:03 AM EDT Respiratory Rate 16 12/13/2023 9:03 AM EDT [...] years 1-dose series) 2015 COVID-19 Vaccine ( season) 2024 Diagnostic Breast Imaging 08/05/2024 02/06/2024 Mammogram 08/05/2024 02/06/2024, 08/0 11/2023, 12/19/2017 SDOH Screening 10/03/2024 10/04/2023 Tobacco Screening 12/12/2024 12/13/2023 Influenza Vaccine (#1) 2025 , 04/12/2021, 05/23/2018, Additional history exists Lipid Panel 12/12/2028 12/13/2023 DTaP/Tdap/Td Vaccines (3 [...] patient's age to complete this topic Meningococcal B Vaccine Aged Out No l onger eligible based on patient's age to complete [...] Procedure Name Priority Date/Time Associated Diagnosis Comments VENOUS BLOOD GAS Routine 11/24/2024 1:22 PM EDT HIGH SENSITIVITY TROPONIN I Routine 11/24/2024 1:16 PM EDT COMPREHENSIVE METABOLIC PANEL Routine 11/24/2024 1:16 PM EDT CBC WITH AUTO DIFFERENTIAL Routine 11/24/2024 1:16 PM EDT XR CHEST 2 VIEWS Routine 11/24/2024 12:4 4 PM EDT XR CHEST 1 VIEW Routine 11/02/2024 12:[address] CHEST W CONTRAST Routine 10/30/2024 1 0:[address] ABDOMEN PELVIS W CONTRAST Routine 10/30/2024 10:25 PM EDT VENOUS BLOOD GAS Routine 10/30/2024 7:43 PM EDT BI US BREAST LIMITED RIGHT Routine 02/06/2024 1:30 PM EDT LIPID PANEL, STANDARD Routine 12/13/2023 12:00 AM EDT Hypercholesterolem ia from Last 3 Months or Most Recently Relevant to Health Maintenance Results * (ABNORMAL) VENOUS BLOOD GAS (11/24/2024 1:22 PM EDT) Only the most recent of2 resultswithin the time period is included. VBG pH 7.41 7.32 - 7.43 [facility] Comment:METER #: [id number] additional_comment: Cbscirpos VBG PCO2 33 mmHg [facility] Comment:METER #: [id number] additional_comment: Cbscirpos VBG PO2 51 mmHg [facility] Comment:METER #: [id number] additional_comment: Cbscirpos VBG Base Excess -2.2 mmol/L [facility] Comment:METER #: [id number] additional_comment: Cbscirpos VBG HCO3 21(L) 22 - 26 mmol/L [facility] Comment:METER #: [id number] additional_comment: Cbscirpos O2 Sat, Damian 80.0 % [facility] Comment:METER #: [id number] additional_comment: Cbscirpos 11/24/2024 1:22 PM EDT 11/24/2024 1:27 PM EDT us Generic External Data Provider LAB BLOOD ORDERAB LES Final Result [facility] [address] [place] [phone] * High Sensitivity Troponin I (11/24/2024 1:16 PM EDT) [facility] TROPONIN I HIGH SENSITIVITY 5.1 <3.5 - 17.0 ng/L [facility] Comment:The Johnson high sens itivity Troponin-I results should beused in conjunction with other diagnostic information suchas ECG, clinical observations and information, and patientsymptoms to aid in the diagnosis of NE. 11/24/2024 1:16 PM EDT 11/24/2024 1:19 PM EDT us Generic External Data Provider LAB BLOOD ORDERAB LES Final Result [facility] [address] [place] [phone] * (ABNORMAL) CBC auto differential (11/24/2024 1:16 PM EDT) [facility] White Blood Count 6.8 4.8 - 10.8 X10*3/uL [facility] Red Blood Count 4.76 4.20 - 5.50 X10*6/uL [facility] Hemoglobin 14.6 12.0 - 16.0 g/dl [facility] Hematocrit 42.6 37.0 - 47.0 % [facility] Mean Corpuscular Volume 89.5 80.0 - 98.0 fL [facility] Mean Corpuscular Hemoglobin 30.7 27.0 - 33.0 pg [facility] Mean Corpuscular HGB Conc 34.3 31.0 - 35.0 g/dl [facility] Red Cell Distribution Width 13.8 11.0 - 16.0 % [facility] Platelet Count 154(L) 160 - 400 X10*3/uL [facility] Mean Platelet Volume 9.9 9.4 - 12.3 fL [facility] Neutrophils Percent Auto 73.2(H) 45 - 73 % [facility] Imm Gran Pct Auto 0.7(H) 0.0 - 0.4 % [facility] Lymphocytes Percent Auto 16.0(L) 20 - 40 % [facility] Monocytes Percent Auto 9.4 2 - 11 % [facility] Eosinophils Percent Auto 0.3 0 - 4 % [facility] Basophils Percent Auto 0.4 0 - 2 % [facility] NRBC Pct Auto 0.0 0.0 - 0.2 /100WBC [facility] Neutrophils Absolute Auto 5.0 2.0 - 8.3 x10*3/uL [facility] Imm Gran Abs Auto 0.05(H) 0.00 - 0.03 X10*3/uL [facility] Lymphocytes Absolute Auto 1.1(L) 1.2 - 4.9 X10*3/uL [facility] Monocytes Absolute Auto 0.6 0.1 - 1.2 X10*3/uL [facility] Eosinophils Absolute Auto 0.0 0.0 - 0.4 X10*3/uL [facility] Basophils Absolute Auto 0.0 0.0 - 0.2 X10*3/uL [facility] NRBC Abs Auto 0.000 0.0 - 0.012 X10*3/uL [facility] 11/24/2024 1:16 PM EDT 11/24/2024 1:19 PM EDT us Generic External Data Provider LAB BLOOD ORDERAB LES Final Result [facility] [address] [place] [phone] * (ABNORMAL) Comprehensive Metabolic Panel (11/24/2024 1:16 PM EDT) Sodium 140 135 - 145 mmol/L [facility] Potassium 3.7 3.3 - 5.1 mmol/L [facility] Chloride 106 96 - 108 mmol/L [facility] Carbon Dioxide 21(L) 22 - 29 mmol/L [facility] Anion Gap 17 12 - 20 [facility] Urea Nitrogen (BUN) 19(H) 9 - 16 mg/dL [facility] Creatinine, Serum 0.83 0.5 - 1.4 mg/dL [facility] Creatinine Clr Calc Pharmacy 55.2 [facility] Comment:Provided height and weight: 162.56 cm,58.2 kg.eGFR (calculated from the MDRD study equation) and eCrCl(calculated from the Cockcroft-Gault equation) are based ondifferent parameters and may not yield comparable results.If eCrCl result is absurd, please check patient'sheight/weight. Estimated Glomerular Filt Rate >60 [facility] Comment:Chronic Kidney Disea se: Estimated GFR < 60 mL/min/1.15n4Uiowej Kidney Disease: Estimated GFR < 15 mL/min/1.73m2 Glucose 123(H) 60 - 115 mg/dL [facility] Calcium 8.8 8.4 - 10.2 mg/dL [facility] Bilirubin, Total 0.8 0.0 - 1.0 mg/dL [facility] Aspartate Amino Transferase 18 5 - 31 U/L [facility] Alanine Aminotransferase 12 0 - 31 U/L [facility] Total Protein 6.4(L) 6.5 - 8.0 g/dL [facility] Albumin Level 3.9 3.5 - 5.0 g/dL [facility] Alkaline Phosphatase 49 39 - 117 U/L [facility] 11/24/2024 1:16 PM EDT 11/24/2024 1:19 PM EDT us Generic External Data Provider LAB BLOOD ORDERAB LES Final Result [facility] [address] [place] [phone] * XR Chest 2 Views (11/24/2024 12:44 PM EDT) Anatomical Region Laterality Modality Chest Radiographic Marie ging 11/24/2024 12:4 4 PM EDT Narrative 11/24/2024 1:52 PM EDT [address] [address] XRay Report Signed Patient: Julia Monzon MR#: [id number] : 1955 Acct:[id number] Age/Sex: 69 / F ADM Date: 11/24/24 Loc: .ED Attending Dr: Ordering Physician: Primo Ibrahim Date of Service: 11/24/24 Procedure(s): XR chest 2V Accession Number(s): [id number] cc: Primo Ibrahim; Laura Mackenzie MD EXAMINATION: XR CHEST CLINICAL INFORMATION: weakness COMPARISON: November 02, 2024. TECHNIQUE: 2 views of the chest were obtained. FINDINGS: Hyperinflated lungs. Pulmonary reticular pattern. Opacity right lower hemithorax. No pneumothorax. Cardiomediastinal silhouette size is normal. Multilevel thoracolumbar spondylosis. Calcified plaques abdominal aorta wall. Osteopenia versus osteoporosis. XR/XR chest 2V IMPRESSION: Mild interstitial lung edema. Small to moderate volume right-sided pleural effusion. Chronic interstitial lung disease/COPD emphysematous type changes. Electronically signed by: Dominic Abdul MD 11/24/2024 01:49 PM EDT RP Dictated By: Dominic Barton MD Signed By: <Electronically signed by Dominic Palomino MD in OV> 11/24/24 1349 DD/ 1244 TD/TT: 11/24/24 1343 Marine Designer: Procedure Note Donotuseinterpreter, Image - 11/24/[address] [address] XRay Report Signed Patient: Julia Monzon LMR#: [id number] : 1955cct:[id number] Age/Sex: 69 / FADM Date: 11/24/24 Loc: .ED Attending Dr: Ordering Physician: Primo Ibrahim Date of Service: 11/24/24 Procedure(s): XR chest 2V Accession Number(s): [id number] cc: Primo Ibrahim; Laura Mackenzie MD EXAMINATION: XR CHEST CLINICAL INFORMATION: weakness COMPARISON: November 02, 2024. TECHNIQUE: 2 views of the chest were obtained. FINDINGS: Hyperinflated lungs. Pulmonary reticular pattern. Opacity right lower hemithorax. No pneumothorax. Cardiomediastinal silhouette size is normal. Multilevel thoracolumbar spondylosis. Calcified plaques abdominal aorta wall. Osteopenia versus osteoporosis. XR/XR chest 2V IMPRESSION: Mild interstitial lung edema. Small to moderate volume right-sided pleural effusion. Chronic interstitial lung disease/COPD emphysematous type changes. Electronically signed by: Dominic Abdul MD 11/24/2024 01:49 PM EDT RP Dictated By: Dominic Barton MD Signed By: <Electronically signed by Dominic Palomino MDin OV> 11/24/24 1349 DD/ 1244 TD/TT: 11/24/24 1343 Marine Designer: [facility] External Provider IMG XR PROCEDURES Edited Result - Final * XR Chest 1 View (11/02/2024 12:05 PM EDT) Anatomical Region Laterality Modality Chest Radiographic Marie ging 11/02/2024 12:0 5 PM EDT Narrative 11/02/2024 12:32 PM EDT [place] [address] XRay Report Signed Patient: Julia Monzon MR#: [id number] : 1955 Acct:[id number] Age/Sex: 69 / F ADM Date: 10/30/24 Loc: HO.S3 343-[address]: Joseph Fink DO Ordering Physician: Joseph Fink DO Date of Service: 11/02/24 Procedure(s): XR chest 1V Accession Number(s): [id number] cc: Laura Mackenzie MD; Joseph Fink DO EXAMINATION: XR CHEST CLINICAL INFORMATION: sob COMPARISON: 10/30/2024 CT chest. TECHNIQUE: Frontal view of the chest was obtained. FINDINGS: The cardiac, hilar, and mediastinal contours are normal. There is underlying COPD again noted. There is diffuse haziness of the interstitium with Boris B lines in the lung bases, suggesting interstitial pulmonary edema. There is blunting of the costophrenic sulci suggesting tiny effusions. There is likely bibasilar atelectasis. There is no pneumothorax. XR/XR chest 1V IMPRESSION: COPD. Mild interstitial pulmonary edema suspected, with questionable tiny pleural effusions. Electronically signed by: Nicola Durán MD 11/02/2024 12:29 PM EDT RP Dictated By: Nicola Durán MD Signed By: <Electronically signed by Nicola Durán MD in OV> 11/02/24 1229 DD/ 1205 TD/TT: 11/02/24 1210 Marine Designer: Procedure Note Donotuseinterpreter, Image - 11/02/2024 [place] [address] XRay Report Signed Patient: Julia Monzon LMR#: [id number] : 1955cct:[id number] Age/Sex: 69 / FADM Date: 10/30/24 Loc: .S3 343-[address]: Joseph Fink DO Ordering Physician: Joseph Fink DO Date of Service: 11/02/24 Procedure(s): XR chest 1V Accession Number(s): [id number] cc: Laura Mackenzie MD; Joseph Fink DO EXAMINATION: XR CHEST CLINICAL INFORMATION: sob COMPARISON: 10/30/2024 CT chest. TECHNIQUE: Frontal view of the chest was obtained. FINDINGS: The cardiac, hilar, and mediastinal contours are normal. There is underlying COPD again noted. There is diffuse haziness of the interstitium with Boris B lines in the lung bases, suggesting interstitial pulmonary edema. There is blunting of the costophrenic sulci suggesting tiny effusions. There is likely bibasilar atelectasis. There is no pneumothorax. XR/XR chest 1V IMPRESSION: COPD. Mild interstitial pulmonary edema suspected, with questionable tiny pleural effusions. Electronically signed by: Nicola Durán MD 11/02/2024 12:29 PM EDT RP Dictated By: Nicola Durán MD Signed By: <Electronically signed by Nicola Durán MD in OV> 11/02/24 1229 DD/ 1205 TD/TT: 11/02/24 1210 Marine Designer: [facility] External Provider IMG XR PROCEDURES Edited Result - Final * CT Chest w/ Contrast (10/30/2024 10:26 PM EDT) Anatomical Region Laterality Modality Body, Chest Computed Tomogra phy 10/30/2024 10:2 6 PM EDT Narrative 10/30/2024 10:28 PM EDT [place] [address] CT Scan Report Signed Patient: Julia Monzon MR#: [id number] : 1955 Acct:[id number] Age/Sex: 69 / F ADM Date: 10/30/24 Loc: [place] [address]: Brenda Newell MD Ordering Physician: Brenda Newell MD Date of Service: 10/30/24 Procedure(s): CT chest w IV con Accession Number(s): [id number] cc: Laura Mackenzie MD; Brenda Newell MD Report Number: [id number]: Total DLP = 226.00 mGy-cm CLINICAL HISTORY: wt loss, cough CT chest with contrast Comparison: None Findings: Mild bibasilar atelectasis/pneumonitis with motion artifacts. Moderate emphysematous changes in both lungs. No consolidation. Calcified and noncalcified plaque involving the imaged aorta and its branches. Heart size within limits of normal. Nonenlarged mediastinal lymphadenopathy by CT. No pneumothorax or pleural effusion. Mild imaged rib deformities appear old/chronic. Minimal vertebral height losses appear old/chronic. Degenerative disc changes are multifocal including vacuum disc phenomenon. Facet arthropathy is also multifocal. Please refer to separate report for included imaged abdomen. IMPRESSION: 1. Mild bibasilar atelectasis/pneumonitis. 2. Moderate emphysematous changes. No masslike consolidation at this time. This document has been electronically signed by: Surendra Galarza MD on 10/30/2024 22:26:43 Dictated By: Surendra Galarza MD Signed By: <Electronically signed by Surendra Galarza MD in OV> 10/30/242226 DD/ 25 TD/TT: 10/30/242225 Marine Designer: Procedure Note Donotuseinterpreter, Image - 10/30/[address] [address] [address] Scan Report Signed Patient: Julia Monzon LMR#: [id number] : 6Acct:[id number] Age/Sex: 69 / FADM Date: 10/30/24 Loc: [facility] Attending [address]: Brenda Newell MD Ordering Physician: Brenda Newell MD Date of Service: 10/30/24 Procedure(s): CT chest w IV con Accession Number(s): [id number] cc: Laura Mackenzie MD; Brenda Newell MD Report Number: [id number]: Total DLP = 226.00 mGy-cm CLINICAL HISTORY: wt loss, cough CT chest with contrast Comparison: None Findings: Mild bibasilar atelectasis/pneumonitis with motion artifacts. Moderate emphysematous changes in both lungs. No consolidation. Calcified and noncalcified plaque involving the imaged aorta and its branches. Heart size within limits of normal. Nonenlarged mediastinal lymphadenopathy by CT. No pneumothorax or pleural effusion. Mild imaged rib deformities appear old/chronic. Minimal vertebral height losses appear old/chronic. Degenerative disc changes are multifocal including vacuum disc phenomenon. Facet arthropathy is also multifocal. Please refer to separate report for included imaged abdomen. IMPRESSION: 1. Mild bibasilar atelectasis/pneumonitis. 2. Moderate emphysematous changes. No masslike consolidation at this time. This document has been electronically signed by: Surendra Galarza MD on 10/30/2024 22:26:43 Dictated By: Surendra Galarza MD Signed By: <Electronically signed by Surendra Galarza MD in OV> 10/30/242226 DD/ 25 TD/TT: 10/30/242225 Marine Designer: [facility] External Provider IMG CT PROCEDURES Edited Result - Final * CT Abdomen Pelvis w/ Contrast (10/30/2024 10:25 PM EDT) Anatomical Region Laterality Modality Body, Pelvis, Abdomen Computed T omography 10/30/2024 10:2 5 PM EDT Narrative 10/30/2024 10:28 PM EDT [place] [address] CT Scan Report Signed Patient: Julia Monzon MR#: [id number] : 1955 Acct:[id number] Age/Sex: 69 / F ADM Date: 10/30/24 Loc: [facility] Attending [address]: Brenda Newell MD Ordering Physician: Brenda Newell MD Date of Service: 10/30/24 Procedure(s): CT abdomen pelvis w IV con Accession Number(s): [id number] cc: Laura Mackenzie MD; Brenda Newell MD Report Number: [id number]: Total DLP = 399.00 mGy-cm CLINICAL HISTORY: wt loss, rectal bleeding CT abdomen and pelvis with contrast Comparison: None available Findings: Mild bibasilar atelectasis/pneumonitis. Emphysematous changes also partially imaged in the lung bases. Heart size within limits of normal is partially imaged. Mild fat deposition in the liver. Cholelithiasis suggested by CT with artifacts. Mild adrenal hyperplasia. Spleen is nonenlarged with calcified remnants of old granulomatous process. Mild-moderate volume loss of the imaged pancreas. No hydronephrosis. No suspicious features of the imaged small cystic lesions in the kidneys. Calcified and noncalcified plaque involving the imaged aorta and its branches in this nonvascular study. Nonenlarged lymphadenopathy by CT. No small bowel obstruction. Fluid and multiple small-bowel loops can be seen with enteritis. Wall thickening of the large intestine is nonspecific and likely reflect colitis, including the cecum. The appendix is not definitively seen. Uterus is diminutive or absent. No adnexal soft tissue mass by CT. Mild wall thickening of the urinary bladder is nonspecific and may reflect cystitis. Mild pelvis deformities appear old/chronic. Grade 1 anterolisthesis at L4-L5. Mild retrolisthesis of the T11-T12. Facet arthropathy is multi level. IMPRESSION: 1. Wall thickening of the large intestine is nonspecific, including the cecum. Differential considerations include colitis. 2. No small bowel obstruction. 3. Mild wall thickening of the urinary bladder. 4. Cholelithiasis. This document has been electronically signed by: Surendra Galarza MD on 10/30/2024 22:25:32 Dictated By: Surendra Galarza MD Signed By: <Electronically signed by Surendra Galarza MD in OV> 10/30/242226 DD/ 24 TD/TT: 10/30/242224 Marine Designer: Procedure Note Donotuseinterpreter, Image - 10/30/[address] [place] [address] [address] Scan Report Signed Patient: Julia Monzon LMR#: [id number] : 6Acct:[id number] Age/Sex: 69 / FADM Date: 10/30/24 Loc: [place] [address]: Brenda Newell MD Ordering Physician: Brenda Newell MD Date of Service: 10/30/24 Procedure(s): CT abdomen pelvis w IV con Accession Number(s): [id number] cc: Laura Mackenzie MD; Brenda Newell MD Report Number: [id number]: Total DLP = 399.00 mGy-cm CLINICAL HISTORY: wt loss, rectal bleeding CT abdomen and pelvis with contrast Comparison: None available Findings: Mild bibasilar atelectasis/pneumonitis. Emphysematous changes also partially imaged in the lung bases. Heart size within limits of normal is partially imaged. Mild fat deposition in the liver. Cholelithiasis suggested by CT with artifacts. Mild adrenal hyperplasia. Spleen is nonenlarged with calcified remnants of old granulomatous process. Mild-moderate volume loss of the imaged pancreas. No hydronephrosis. No suspicious features of the imaged small cystic lesions in the kidneys. Calcified and noncalcified plaque involving the imaged aorta and its branches in this nonvascular study. Nonenlarged lymphadenopathy by CT. No small bowel obstruction. Fluid and multiple small-bowel loops can be seen with enteritis. Wall thickening of the large intestine is nonspecific and likely reflect colitis, including the cecum. The appendix is not definitively seen. Uterus is diminutive or absent. No adnexal soft tissue mass by CT. Mild wall thickening of the urinary bladder is nonspecific and may reflect cystitis. Mild pelvis deformities appear old/chronic. Grade 1 anterolisthesis at L4-L5. Mild retrolisthesis of the T11-T12. Facet arthropathy is multi level. IMPRESSION: 1. Wall thickening of the large intestine is nonspecific, including the cecum. Differential considerations include colitis. 2. No small bowel obstruction. 3. Mild wall thickening of the urinary bladder. 4. Cholelithiasis. This document has been electronically signed by: Surendra Galarza MD on 10/30/2024 22:25:32 Dictated By: Surendra Galarza MD Signed By: <Electronically signed by Surendra Galarza MD in OV> 10/30/242226 DD/ 24 TD/TT: 10/30/242224 Marine Designer: [facility] External Provider IMG CT PROCEDURES Edited Result - Final * BI US Breast Limited Right (02/06/2024 1:30 PM EDT) Anatomical Region Laterality Modality Breast Right Ultrasound 02/06/2024 1:30 PM EDT Narrative 02/06/2024 1:59 PM EDT [address] [place] [address] Ultrasound Report Signed Patient: Julia Monzon MR#: [id number] : 1955 Acct:[id number] Age/Sex: 68 / F ADM Date: 02/06/24 Loc: HO.MAMMO Attending Dr: Laura Mackenzie MD Ordering Physician: Laura Mackenzie MD Date of Service: 02/06/24 Procedure(s): US breast RT limited mamm only Accession Number(s): [id number] cc: Laura Mackenzie MD EXAMINATION: MM DIAGNOSTIC [...] 02/06/24 1356 DD/ 1330 TD/TT: 02/06/24 1348 Marine Designer: Procedure Note Donotuseinterpreter, Image - 02/06/2024 [facility] [address] [place] [address] Ultrasound Report Signed Patient: Julia Monzon LMR#: [id number] : 6Acct:[id number] Age/Sex: 68 / FADM Date: 02/06/24 Loc: HO.MAMMO Attending Dr: Laura Mackenzie MD Ordering Physician: Laura Mackenzie MD Date of Service: 02/06/24 Procedure(s): US breast RT limited mamm only Accession Number(s): [id number] cc: Laura Mackenzie MD EXAMINATION: MM DIAGNOSTIC [...] Nicola Durán MD 02/06/2024 01:56 PM EDT RP Dictated By: Nicola Durán MD Signed By: <Electronically signed by Nicola Durán MD in OV> 02/06/24 1356 DD/ 1330 TD/TT: 02/06/24 1348 Marine Designer: us Laura Mackenzie MD IMG US PROCEDURES Final Result * (ABNORMAL) Lipid Panel, Standard (12/13/2023 12:00 AM EDT) Triglycerides 117 <150 mg/dL [facility] Comment:Desirable Triglyceri de: less than 150 mg/dLBorderline High Triglyceride 150-199 mg/dLHigh Triglyceride: 200-499 mg/dLVery High Triglyceride: greater than or equal to 5OO mg/dL Cholesterol 244(H) <200 mg/dL [facility] Comment:Desirable Cholestero l: less than 200 mg/dLBorderline High Cholesterol: 200-239 mg/dLHigh Cholesterol: greater than 239 mg/dL LDL Cholesterol Calculated 166(H) <100 mg/dL [facility] Comment:Desirable LDL: less than 100 mg/dLNear Optimal/Above Optimal LDL: 110- 129 mg/dLBorderline High LDL: 130-159 mg/dLHigh LDL: 160-189 mg/dLVery High LDL: greater than or equal to 190 mg/dL HDL Cholesterol 55 >40 mg/dL [facility] Comment:Desirable HDL: great er than 40 mg/dL Note: This HDL assay may give artificially low results in patients with liver disease. Blood Venous blood specimen / Unknown 12/13/2023 12/13/2023 Laura Mackenzie MD LAB BLOOD ORDERABLES Final Resul t [facility] [address] [place] [address] [phone] from Last 3 Months or Most Recently Relevant to Health Maintenance Insurance [facility] FULL [facility] STANDARD Care Teams Trade Recruiter Relationship Specialty Start Date End Date Laura Mackenzie MD [address] [place] [id number] PCP - General Family Medicine 12/30/14
[2024-11-24 15:05] VITALS: BP 116/68; PULSE 86; RESP 24; O2SAT 94
--- NOTE | 2024-11-24 15:15 | PC.NURSE ---
Patient is a 69-year-old female with pertinent history of COPD not on home oxygen, tobacco use disorder, mixed hyperlipidemia who presents to the emergency department for evaluation of increased confusion. Patient appeared sob upon arrival with tachypnea and pox in the low 90's which EMS states was normal for the patient. Patient denies any complaints. nuclear monitoring technician applied and stach noted which has since resolved. Patient alert and oriented with bizzare affect noted. History of mental health of which she refused her psych eval per her son. Lungs clear bilat. Respirations even and tacypnea improved. Abdomen soft, flat soft, non-tender with positive bowel sounds. Positive pedal pulses with no edema.
[2024-11-24 15:35] LABS: Appearance Urine Cloudy; Glucose Urine UA Negative (Negative); PH 5.0 (5.0-9.0); Specific Gravity - Urine >= 1.030 (1.005-1.025); UMIC TRIGGER UACC YES
[2024-11-24 15:57] LABS: UACC Culture Trigger YES
[2024-11-24 16:11] VITALS: BP 128/64; PULSE 91; RESP 25; TEMP 36.1; O2SAT 94
--- NOTE | 2024-11-24 17:47 | PC.NURSE ---
Report givent to Marlena HOPKINS at [facility]
[2024-11-24 18:15] VITALS: BP 128/64; PULSE 91; RESP 25; TEMP 36.1; O2SAT 94
== END 2024-11-24 18:16 ==
PROVIDERS: Physician Assistant; Emergency Provider Emergency Medicine Emergency Medical Services; PCP Student in an Organized Health Care Education/Training Program
DX: R62.7 Adult failure to thrive (principal); Z68.22 Body mass index [BMI] 22.0-22.9, adult; R41.0 Disorientation, unspecified; E78.00 Pure hypercholesterolemia, unspecified; J44.9 Chronic obstructive pulmonary disease, unspecified; E55.9 Vitamin D deficiency, unspecified; F17.210 Nicotine dependence, cigarettes, uncomplicated
CPT/HCPCS: 36415; 71046; 80053; 81001; 82803; 84484; 85025; 87086; 93005; 99283; 99285

== ENCOUNTER → 2024-11-24 13:28 | Outpatient (BNV) | payer MEDICARE, MEDICAID, SELFPAY | PROVIDERS: Emergency Provider Emergency Medicine Emergency Medical Services; PCP Student in an Organized Health Care Education/Training Program; Visit Provider Internal Medicine Cardiovascular Disease | DX: R00.0 Tachycardia, unspecified (principal) | CPT/HCPCS: 93010 ==

== ENCOUNTER → 2024-11-24 13:36 | Outpatient (BNV) | payer MEDICARE, MEDICAID, SELFPAY | PROVIDERS: Emergency Provider Emergency Medicine Emergency Medical Services; PCP Student in an Organized Health Care Education/Training Program; Visit Provider Radiology Diagnostic Radiology | DX: J84.9 Interstitial pulmonary disease, unspecified (principal) | CPT/HCPCS: 71046 ==

== ENCOUNTER 2025-01-01 11:17 | Outpatient (REF) | payer MEDICARE, MEDICAID, SELFPAY ==
--- NOTE | ~2025-01-01 | MM_ITS ---
EXAMINATIONS: 1. MM DIAGNOSTIC DIGITAL BREAST TOMOSYNTHESIS, BILATERAL 2. Targeted ultrasound of the right breast CLINICAL INFORMATION: This is a 6-month follow-up of left breast findings at 1:00 and 2:00 retroareolar positions. COMPARISON: December 25, 2023 and February 06, 2024 TECHNIQUE: Digital breast tomosynthesis is performed in both the craniocaudal and mediolateral oblique views along with computer-aided detection (CAD). Synthesized 2D images are generated from the tomosynthesis. Spot compression tomosynthesis of the right breast were also obtained. FINDINGS: BREAST COMPOSITION: The breasts are heterogeneously dense, which may obscure small masses (ACR BI-RADS breast composition Category c). RIGHT BREAST: -Previously seen focal asymmetry in the medial breast at approximately 3 o'clock position anterior depth is not seen on today's examination. -Finding described at 12 o'clock position is not well seen. -No significant masses, suspicious calcifications or other abnormalities are seen. Targeted ultrasound of the right breast was performed at the location of the previously described sonographic findings. The survey shows the following: -0.6 x 0.5 x 0.4 cm focal ectatic duct containing debris or a complicated cyst, located at 12:00 at 1 cm from the nipple. This is unchanged from prior images from January 2024, where the reported measurements were 0.7 x 0.5 x 0.5 cm. Possible focal vascularity demonstrated with color Doppler evaluation. -0.5 x 0.4 x 0.3 cm focal ectatic duct containing debris or complicated cyst at 2:00 at 1 cm from the nipple. This was probably not imaged on previous examination. -Previously seen finding at the 1 o'clock position retroareolar could not be redemonstrated on today's study. LEFT BREAST: No significant masses, suspicious calcifications or other abnormalities are seen. MM/MM tomosynthesis diagnostic BI IMPRESSION: RIGHT BREAST: Focally dilated duct containing debris or complicated cysts at 12:00 at 1 cm from the nipple and at 2:00 at 1 cm from the nipple. Probably benign. A 6-month follow-up right breast ultrasound is recommended. LEFT BREAST: Negative, no mammographic evidence of malignancy. Normal interval follow-up is recommended in 12 months. ASSESSMENT: BI-RADS 3 - Probably benign finding(s) - 6 month follow-up suggested RECOMMENDATION: 6 Month F/U Results were provided to the patient at time of visit by the technologist. This patient's information was entered into a reminder system with a target due date for their next mammogram. Electronically signed by: Jayme Robins MD 01/01/2025 01:59 PM EDT
--- OUTSIDE RECORDS SUMMARY | 2025-01-01 11:22 | XMS_ITS | Clinical Summary ---
Author Organization [employer] Address [address] [place] [address] Care Team Providers Care Gas Well Drilling Manager Name Role Phone Laura Mackenzie MD Primary Care Provider [phone] Allergies No known active allergies Medications simvastatin (Zocor) 20 MG tablet Take 1 tablet (20 mg) by mouth at bedtime. 30 tablet 11 10/15/19 24 Active Trelegy Ellipta 200-62.5-25 MCG/ACT aerosol powder INHALE 1 PUFF DAILY AT THE SAME TIME EACH DAY. RINSE MOUTH AFTER USE 11/29/19 24 Active ipratropium-al buterol (Duo-Neb) 0.5-2.5 mg/3 mL nebulizer solution USE ONE AMPULE USING A NEBULIZER EVERY 6 HOURS NEEDED FOR WHEEZING 11/27/19 24 Active albuterol (2.5 MG/3ML) 0.083% nebulizer solutionIndica tions:Unspecif ied asthma with status asthmaticus Take 3 mL (2.5 mg) by nebulization every 4 (four) hours if needed for wheezing or shortness of breath. 90 mL 3 12/13/19 24 Active albuterol (Ventolin HFA) 108 (90 Base) MCG/ACT inhalerIndicat ions:Uncomplic ated asthma, unspecified asthma severity, unspecified whether persistent INHALE TWO PUFFS BY MOUTH EVERY 4 HOURS NEEDED FOR WHEEZING 18 g 3 06/30/19 25 Active clonazePAM (KlonoPIN) 0.5 MG tablet Take 1 tablet by mouth 3 times daily. 11/05/19 25 Active mirtazapine (Remeron) 7.5 MG tablet Take 1 tablet by mouth at bedtime. 12/13/19 25 Active Fluticasone Furoate-Vilant mohamud (Breo Ellipta) 200-25 MCG/ACT aerosol powderIndicati ons:Chronic obstructive pulmonary disease, unspecified COPD type ([facility]) INHALE 1 PUFF EVERY MORNING. RINSE MOUTH AFTER USE 1 each 3 11/29/19 24 2024 Discontinued(M ed list cleanup (will not trigger notification to Pharmacy)) cholecalcifero l (D3-5) 5,000 Units tablet Take 1 tablet (5,000 Units) by mouth Once per day. 90 tablet 3 12/13/19 24 2024 Active Problems Problem Noted Date Diagnosed Date Chronic obstructive lung disease 12/30/2014 Hypercholesterolemia 12/30/2014 Encounters Date Type Department Care Team Description 12/31/2024 Patient Outreach [facility] [address] [place] [phone] Laura Mackenzie MD Transition Of Care (Tcm) (T/C TO [facility]) 12/18/2024 Patient Outreach [facility] [address] [place] [phone] Laura Mackenzie MD Pre-visit Planning (HDF- scheduled and SDOH screening needs to be complete it in office.) 11/24/2024 Orders Only GENERIC EXTERNAL DATA DEPARTMENT Provider, Generic External Data 10/30/2024 Orders Only GENERIC EXTERNAL DATA DEPARTMENT Provider, Generic External Data 10/30/2024 Telephone [facility] [address] [place] [phone] Laura Mackenzie MD Nurse Triage from Last [...] the past 12 months, has t he [employer] gas, oil or water [employer] threatened to shut off services in your [...] 12/13/2023 9:03 AM EDT Plan of Treatment Upcoming Encounters Date Type Department Care Team (Late st Contact Info) Description 01/04/2025 10:15 AM EDT Office Visit [facility] [address] [place] [phone] Robert Lorenzana MD [address] [place] [address] Health Maintenance Due Date Last Done Comments [...] 2025 , 04/12/2021, 05/23/2018, Additional history exists DTaP/Tdap/Td Vaccines (3 - Td or Tdap) 04/21/2029 04/21/2019, 03/23/2008 Pneumococcal Vaccine: 50+ Years Completed 03/01/2022, 03/01/2022 Zoster Vaccines Completed 05/28/2022, 03/12/2022 HIB [...] Procedure Name Priority Date/Time Associated Diagnosis Comments CULTURE, URINE, ROUTINE Routine 11/24/2024 5:00 PM EDT URINALYSIS, COMPLETE, WITH REFLEX TO CULTURE Routine 11/24/2024 3:28 PM EDT VENOUS BLOOD GAS Routine 11/24/2024 1:22 PM [...] LIMITED RIGHT Routine 02/06/2024 1:30 PM EDT from Last 3 Months or Most Recently Relevant to Health Maintenance Results * Culture, Urine, Routine (11/24/2024 5:00 PM EDT) Urine Urine specimen obtained by clean catch procedure / Unknown 11/24/2024 5:00 PM EDT 11/24/2024 5:00 PM EDT Comment:UACC Narrative [facility] - 11/26/2024 11:02 AM EDT Urine Culture Report Result Urine Culture > 100,000 cfu/ml Urine Culture Mixed bacterial dee characteristic of Urine Culture urogenital contamination. Specimen Source: Urine clean catch us Generic External Data Provider LAB MICROBIOLOGY - GENERAL ORDERABLES Final Result [facility] [address] [place] [address] [phone] * (ABNORMAL) Urinalysis, Complete, with Reflex to Culture (11/24/2024 3:28 PM EDT) Color Urine Dark Yellow [facility] Appearance Urine Cloudy [facility] PH 5.0 5.0 - 9.0 [facility] Glucose Urine UA Negative Negative mg/dL [facility] Urine Blood Negative Negative [facility] Specific [place] - Urine >=1.030(H) 1.005 - 1.025 [facility] Urine Protein 30 (1+)(A) Neg-Trace mg/dL [facility] Urine Ketones 80 Negative mg/dL [facility] Nitrite Urine Negative Negative [facility] Leukocyte Esterase Urine Trace(A) Negative [facility] RBC Urine 0-2 0 - 2 /HPF [facility] Urine WBC 6-10(A) 0 - 5 /HPF [facility] Urine Squamous Epithelial Cell >20 0 - 2 /HPF [facility] Urine Bacteria 2+ None Seen [facility] Hyaline Casts, Urine >20 0 - 2 /LPF [facility] 11/24/2024 3:28 PM EDT 11/24/2024 3:32 PM EDT Narrative [facility] - 11/24/2024 3:57 PM EDT [id number], Clean Catch Generic External Data Provider LAB URINE ORDERAB LES Final Result Performing Organization Address [facility] de Phone Number [facility] [address] [place] [phone] * (ABNORMAL) VENOUS BLOOD GAS (11/24/2024 1:22 PM EDT) Only the most recent of2 resultswithin the time period is included. VBG pH 7.41 7.32 - 7.43 [facility] Comment:METER #: [id number] additional_comment: Cbscirpos VBG PCO2 33 mmHg [facility] Comment:METER #: [id number] additional_comment: Cbscirpos VBG PO2 51 mmHg [facility] Comment:METER #: [id number] additional_comment: Cbscirpos VBG Base Excess -2.2 mmol/L [facility] Comment:METER #: [id number] additional_comment: Cbscirpos VBG HCO3 21(L) 22 - 26 mmol/L [facility] Comment:METER #: [id number] additional_comment: Cbscirpos O2 Sat, Damian 80.0 % [facility] Comment:METER #: [id number] additional_comment: Cbscirpos 11/24/2024 1:22 PM EDT 11/24/2024 1:27 PM EDT Generic External Data Provider LAB BLOOD ORDERAB LES Final Result Performing Organization Address [facility] Co de Phone Number [facility] [address] [place] [phone] * High Sensitivity Troponin I (11/24/2024 1:16 PM EDT) TROPONIN I HIGH SENSITIVITY 5.1 <3.5 - 17.0 ng/L [facility] Comment:The Johnson high sens itivity Troponin-I results should beused in conjunction with other diagnostic information suchas ECG, clinical observations and information, and patientsymptoms to aid in the diagnosis of DC. 11/24/2024 1:16 PM EDT 11/24/2024 1:19 PM EDT us Generic External Data Provider LAB BLOOD ORDERAB LES Final Result [facility] [address] [place] [phone] * (ABNORMAL) CBC auto differential (11/24/2024 1:16 PM EDT) White Blood Count 6.8 4.8 - 10.8 X10*3/uL [facility] Red Blood Count 4.76 4.20 - 5.50 X10*6/uL [facility] Hemoglobin 14.6 12.0 - 16.0 g/dl [facility] Hematocrit 42.6 37.0 - 47.0 % [facility] Mean Corpuscular Volume 89.5 80.0 - 98.0 fL [facility] Mean Corpuscular Hemoglobin 30.7 27.0 - 33.0 pg [facility] Mean Corpuscular HGB Conc 34.3 31.0 - 35.0 g/dl [facility] Red Cell Distribution Width 13.8 11.0 - 16.0 % [facility] Platelet Count 154(L) 160 - 400 X10*3/uL [facility] Mean Platelet Volume 9.9 9.4 - 12.3 fL [facility] Neutrophils Percent Auto 73.2(H) 45 - 73 % [facility] Imm Gran Pct Auto 0.7(H) 0.0 - 0.4 % [facility] Lymphocytes Percent Auto 16.0(L) 20 - 40 % [facility] Monocytes Percent Auto 9.4 2 - 11 % [facility] Eosinophils Percent Auto 0.3 0 - 4 % [facility] Basophils Percent Auto 0.4 0 - 2 % [facility] NRBC Pct Auto 0.0 0.0 - 0.2 /100WBC [facility] Neutrophils Absolute Auto 5.0 2.0 - 8.3 x10*3/uL [facility] Imm Gran Abs Auto 0.05(H) 0.00 - 0.03 X10*3/uL [facility] Lymphocytes Absolute Auto 1.1(L) 1.2 - 4.9 X10*3/uL [facility] Monocytes Absolute Auto 0.6 0.1 - 1.2 X10*3/uL [facility] Eosinophils Absolute Auto 0.0 0.0 - 0.4 X10*3/uL [facility] Basophils Absolute Auto 0.0 0.0 - 0.2 X10*3/uL [facility] NRBC Abs Auto 0.000 0.0 - 0.012 X10*3/uL [facility] 11/24/2024 1:16 PM EDT 11/24/2024 1:19 PM EDT us Generic External Data Provider LAB BLOOD ORDERAB LES Final Result [facility] [address] [place] [phone] [phone] * (ABNORMAL) Comprehensive Metabolic Panel (11/24/2024 1:16 PM EDT) Sodium 140 135 - 145 mmol/L [facility] Potassium 3.7 3.3 - 5.1 mmol/L [facility] Chloride 106 96 - 108 mmol/L [facility] Carbon Dioxide 21(L) 22 - 29 mmol/L [facility] Anion Gap 17 12 - 20 [facility] Urea Nitrogen (BUN) 19(H) 9 - 16 mg/dL [facility] Creatinine, Serum 0.83 0.5 - 1.4 mg/dL [facility] Creatinine Clr Calc Pharmacy 55.2 [facility] Comment:Provided height and weight: 162.56 cm,58.2 kg.eGFR (calculated from the MDRD study equation) and eCrCl(calculated from the Cockcroft-Gault equation) are based ondifferent parameters and may not yield comparable results.If eCrCl result is absurd, please check patient'sheight/weight. Estimated Glomerular Filt Rate >60 [facility] Comment:Chronic Kidney Disea se: Estimated GFR < 60 mL/min/1.71k8Ntfadz Kidney Disease: Estimated GFR < 15 mL/min/1.73m2 Glucose 123(H) 60 - 115 mg/dL [facility] Calcium 8.8 8.4 - 10.2 mg/dL [facility] Bilirubin, Total 0.8 0.0 - 1.0 mg/dL [facility] Aspartate Amino Transferase 18 5 - 31 U/L [facility] Alanine Aminotransferase 12 0 - 31 U/L [facility] Total Protein 6.4(L) 6.5 - 8.0 g/dL [facility] Albumin Level 3.9 3.5 - 5.0 g/dL [facility] Alkaline Phosphatase 49 39 - 117 U/L [facility] 11/24/2024 1:16 PM EDT 11/24/2024 1:19 PM EDT us Generic External Data Provider LAB BLOOD ORDERAB LES Final Result [facility] [address] [place] [address] [phone] * XR Chest 2 Views (11/24/2024 12:44 PM EDT) Anatomical Region Laterality Modality Chest Radiographic Maire ging 11/24/2024 12:4 4 PM EDT Narrative 11/24/2024 1:52 PM EDT [address] [address] XRay Report Signed Patient: Julia Monzon MR#: [id number] : 1955 Acct:[id number] Age/Sex: 69 / F ADM Date: 11/24/24 Loc: .ED Attending Dr: Ordering Physician: Primo Ibrahim Date of Service: 11/24/24 Procedure(s): XR chest 2V Accession Number(s): [id number] cc: Primo Ibrahim; Laura Mackenzie MD EXAMINATION: [...] 11/24/24 1349 DD/ 1244 TD/TT: 11/24/24 1343 [employer]ap[employer] Consultant: Procedure Note Donotuseinterpreter, Image - 11/24/[address] [address] XRay Report Signed Patient: Julia Monzon LMR#: [id number] : 6Acct:[id number] Age/Sex: 69 / FADM Date: 11/24/24 Loc: .ED Attending Dr: Ordering Physician: Primo Ibrahim Date of Service: 11/24/24 Procedure(s): XR chest 2V Accession Number(s): [id number] cc: Primo Ibrahim; Laura Mackenzie MD EXAMINATION: [...] 11/24/24 1349 DD/ 1244 TD/TT: 11/24/24 1343 Datapower Consultant: [facility] External Provider IMG XR PROCEDURES Edited Result - Final * XR Chest 1 View (11/02/2024 12:05 PM EDT) Anatomical Region Laterality Modality Chest Radiographic Marie ging 11/02/2024 12:0 5 PM EDT Narrative 11/02/2024 12:32 PM EDT [place] [address] XRay Report Signed Patient: Julia Monzon MR#: [id number] : 1955 Acct:[id number] Age/Sex: 69 / F ADM Date: 10/30/24 Loc: .S3 343-[address]: Joseph Fink DO Ordering Physician: Joseph Fink DO Date of Service: 11/02/24 Procedure(s): XR chest 1V Accession Number(s): [id number] cc: Laura Mackenzie MD; Joseph Fink DO [...] 11/02/24 1229 DD/ 1205 TD/TT: 11/02/24 1210 Datapower Consultant: Procedure Note Donotuseinterpreter, Image - 11/02/[address] [address] XRay Report Signed Patient: Julia Monzon LMR#: [id number] : 1955cct:[id number] Age/Sex: 69 / FADM Date: 10/30/24 Loc: HO.S3 343-[address]: Joseph Fink DO Ordering Physician: Joseph Fink DO Date of Service: 11/02/24 Procedure(s): XR chest 1V Accession Number(s): [id number] cc: Laura Mackenzie MD; Joseph Fink DO [...] 11/02/24 1229 DD/ 1205 TD/TT: 11/02/24 1210 Datapower Consultant: us [facility] External Provider IMG XR PROCEDURES Edited Result - Final * CT Chest w/ Contrast (10/30/2024 10:26 PM EDT) Anatomical Region Laterality Modality Body, Chest Computed Tomogra phy 10/30/2024 10:2 6 PM EDT Narrative 10/30/2024 10:28 PM EDT [place] [address] CT Scan Report Signed Patient: Julia Monzon MR#: [id number] : 1955 Acct:[id number] Age/Sex: 69 / F ADM Date: 10/30/24 Loc: [place] [address]: Brenda Newell MD Ordering Physician: Brenda Newell MD Date of Service: 10/30/24 Procedure(s): CT chest w IV con Accession Number(s): [id number] cc: Laura Mackenzie MD; Brenda Newell MD Report Number: [id number]: Total DLP = 226.00 mGy-cm CLINICAL HISTORY: [...] in OV> 10/30/242226 DD/ 25 TD/TT: 10/30/242225 Datapower Consultant: Procedure Note Donotuseinterpreter, Image - 10/30/[address] [place] [address] [address] Scan Report Signed Patient: Julia Monzon LMR#: [id number] : 6Acct:[id number] Age/Sex: 69 / FADM Date: 10/30/24 Loc: [place] [address]: Brenda Newell MD Ordering Physician: Brenda Newell MD Date of Service: 10/30/24 Procedure(s): CT chest w IV con Accession Number(s): [id number] cc: Laura Mackenzie MD; Brenda Newell MD Report Number: [id number]: Total DLP = 226.00 mGy-cm CLINICAL HISTORY: [...] in OV> 10/30/242226 DD/ 25 TD/TT: 10/30/242225 Datapower Consultant: [facility] External Provider IMG CT PROCEDURES Edited Result - Final * CT Abdomen Pelvis w/ Contrast (10/30/2024 10:25 PM EDT) Anatomical Region Laterality Modality Body, Pelvis, Abdomen Computed T omography 10/30/2024 10:2 5 PM EDT Narrative 10/30/2024 10:28 PM EDT [address] [address] [address] Scan Report Signed Patient: Julia Monzon MR#: [id number] : 1955 Acct:[id number] Age/Sex: 69 / F ADM Date: 10/30/24 Loc: [place] [address]: Brenda Newell MD Ordering Physician: Brenda Newell MD Date of Service: 10/30/24 Procedure(s): CT abdomen pelvis w IV con Accession Number(s): [id number] cc: Laura Mackenzie MD; Brenda Newell MD Report Number: [id number]: Total DLP = 399.00 mGy-cm CLINICAL HISTORY: [...] in OV> 10/30/242226 DD/ 24 TD/TT: 10/30/242224 Datapower Consultant: Procedure Note Donotuseinterpreter, Image - 10/30/[address] [place] [address] [address] Scan Report Signed Patient: Julia Monzon LMR#: [id number] : 6Acct:[id number] Age/Sex: 69 / FADM Date: 10/30/24 Loc: [place] [address]: Brenda Newell MD Ordering Physician: Brenda Newell MD Date of Service: 10/30/24 Procedure(s): CT abdomen pelvis w IV con Accession Number(s): [id number] cc: Laura Mackenzie MD; Brenda Newell MD Report Number: [id number]: Total DLP = 399.00 mGy-cm CLINICAL HISTORY: [...] in OV> 10/30/242226 DD/ 24 TD/TT: 10/30/242224 Datapower Consultant: [facility] External Provider IMG CT PROCEDURES Edited Result - Final * BI US Breast Limited Right (02/06/2024 1:30 PM EDT) Anatomical Region Laterality Modality Breast Right Ultrasound 02/06/2024 1:30 PM EDT Narrative 02/06/2024 1:59 PM EDT [address] [place] [address] Ultrasound Report Signed Patient: Julia Monzon MR#: [id number] : 1955 Acct:[id number] Age/Sex: 68 / F ADM Date: 02/06/24 Loc: HO.MAMMO Attending Dr: Laura Mackenzie MD Ordering Physician: Laura Mackenzie MD Date of Service: 02/06/24 Procedure(s): US breast RT limited mamm only Accession Number(s): [id number] cc: Laura Mackenzie MD EXAMINATION: MM DIAGNOSTIC [...] 02/06/24 1356 DD/ 1330 TD/TT: 02/06/24 1348 Datapower Consultant: Procedure Note Donotuseinterpreter, Image - 02/06/2024 [facility] [address] [place], [place] [address] Ultrasound Report Signed Patient: Julia Monzon LMR#: [id number] : 6Acct:[id number] Age/Sex: 68 / FADM Date: 02/06/24 Loc: HO.MAMMO Attending Dr: Laura Mackenzie MD Ordering Physician: Laura Mackenzie MD Date of Service: 02/06/24 Procedure(s): US breast RT limited mamm only Accession Number(s): [id number] cc: Laura Mackenzie MD EXAMINATION: MM DIAGNOSTIC [...] 02/06/24 1356 DD/ 1330 TD/TT: 02/06/24 1348 Datapower Consultant: us Laura Mackenzie MD [facility] PROCEDURES Final Result from Last 3 Months or Most Recently Relevant to Health Maintenance Insurance [place] [phone] [facility] Care Teams Gas Well Drilling Manager Relationship Specialty Start Date End Date Laura Mackenzie MD [address] [place] [phone] PCP - General Family Medicine 12/30/14
== END 2025-01-01 11:18 | disposition home or self-care (01) ==
LOC: HO.MAMMO 11:17
PROVIDERS: PCP Student in an Organized Health Care Education/Training Program; Visit Provider Student in an Organized Health Care Education/Training Program
DX: R92.8 Other abnormal and inconclusive findings on diagnostic imaging of breast (principal)
CPT/HCPCS: 76642; 77062; 77066

== ENCOUNTER → 2025-01-01 12:30 | Outpatient (BNV) | payer MEDICARE, MEDICAID, SELFPAY | PROVIDERS: PCP Student in an Organized Health Care Education/Training Program; Visit Provider Radiology Body Imaging | DX: N60.41 Mammary duct ectasia of right breast (principal) | CPT/HCPCS: 76642; 77066; G0279 ==